=== PATIENT | male | born 1970 | race Caucasian/White ===

== ENCOUNTER 2023-04-15 12:45 | Outpatient (AMB) | payer OTHER, SELFPAY ==
--- OUTSIDE RECORDS SUMMARY | 2023-04-15 12:46 | XMS_ITS | Patient Health Record ---
Author Name Unknown Organization [facility] Address [address] [place] [phone] Care Team Providers Care Staff Respiratory Therapist Name Role Phone No, PCP Primary Care Provider Miriam Smith Unavailable [phone] ALLERGIES Allergen (clinical drug ingredient) Drug/Non Drug Allergy documented on EMR Reaction Allergy Type Onset Date Status carbamazepine TEGretol Unknown Drug Allergy Act denia REASON FOR REFERRAL Reason extract tooth 18 Referral [facility] Referring Provider First Name Miriam Referring Provider Last Name Segun Referring Provider [facility] Referred Provider [facility] Referred Provider [facility] Referral Priority Routine MEDICATIONS Medication SIG (Take, Route, Fr equency, Duration) Notes Start Date End Date Status topiramate Active olanzapine Active metformin Active atorvastatin Active Jardiance Active lisinopril Active amoxicillin 875 mg 1 tab(s) orally ever y 12 hours for 7 days 06/17/2022 Active SOCIAL HISTORY Sex Assigned At : Social History Observation Description Sex Assigned At Unknown VITAL SIGNS Blood pressure diastolic 71 LS 06/17/2022 Blood pressure systolic 116 06/17/2022 Encounters Encounter Location Date Provider Diagnosis [address] [id number] 06/25/2022 [facility] [address] [phone] 06/17/2022 [facility] [address] [place] [phone] 06/12/2022 Miriam DeFlorio PLAN OF TREATMENT No Information Insurance Providers Payer Name Payer Address Payer Phone Subscriber Number Group Number Insured Name Patient Relationship to Insured Coverage Start Date Coverage End Date Health Safety [facility] [address] [place] [address] [id number] Luis Antonio Arita Self - patient is the insured 2 MEDICAL (GENERAL) HISTORY Medical History History ICD Code Diabetes type II Epilepsy / Seizures Hydrocephalus at L ankle surgery (6 pins placed, broken a nkle)
--- NOTE | 2023-04-15 13:59 | AM.OFFWIN_ITS ---
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 Patient is requesting a refill on his diabetic medications. he would like a refill on Lantus and metformin. He is transferring his care from [facility] to this office. His upcoming appt with PCP is scheduled for the end of April. [facility] Social History Patient Tobacco Use Status: Never used Tobacco Physical Exam Vital Signs: Last Vital Signs Temp 97.9 F 04/15/23 14:06 Pulse 85 04/15/23 14:06 BP 112/70 04/15/23 14:06 Pulse Ox 98 04/15/23 14:06 BMI result Body Mass Index 48.8 Const General: cooperative, healthy appearing and comfortable Assessment & Plan Assessment & Plan (1) DM (diabetes mellitus) type II uncontrolled with eye manifestation: Plan Prescriptions written to cover till he sees his PCP. Medications: New insulin glargine (Lantus Solostar U-100 Insulin) 40 units (0.4 mL) subcut QPM 15 mL 0RF metformin 500 mg PO BID 60 tabs 0RF Coding Level of Care Code New Pt Level 3 (46409) Diagnoses DM (diabetes mellitus) type II uncontrolled with eye manifestation
[2023-04-15 14:06] VITALS: BP 112/70; PULSE 85; TEMP 36.6; O2SAT 98; BMI 48.8
== END 2023-04-15 14:35 | disposition home or self-care (01) ==
PROVIDERS: PCP Internal Medicine; Visit Provider Internal Medicine
DX: E11.9 Type 2 diabetes mellitus without complications (principal)
CPT/HCPCS: 99203

== ENCOUNTER 2023-05-05 14:21 | Outpatient (AMB) | payer OTHER, SELFPAY ==
--- NOTE | 2023-05-05 14:31 | MHC.PC.OV ---
Vital Signs 05/05/23 14:32 Height 5 ft 11 in Weight 346 lb BMI 48.3 BP 102/60 Blood Pressure Location Rt brachial Position Sitting Pulse 91 Pulse Source Pulse Oximeter Pulse Oximetry (%) 96 Oxygen Delivery Method Room Air Intake Visit Reasons: Est care DM, Seizures and Sleep Apnea Intake Note: Pt is here to est care Allergies dulaglutide [From Trulicity] Allergy (Intermediate, Verified 05/05/23 14:46) Itching carbamazepine [From Tegretol] Adverse Reaction (Intermediate, Verified 05/05/23 14:46) WBC drops Medication List - Last Reconciled 05/05/23 by NANETTE Vargas atorvastatin 40 mg PO DAILY empagliflozin (Jardiance) 25 mg PO DAILY insulin glargine (Lantus Solostar U-100 Insulin) 47 units subcut QPM lisinopril 2.5 mg PO DAILY metformin 1,000 mg PO BID olanzapine 2.5 mg PO BEDTIME topiramate 100 mg PO BID Tobacco use date assessed: 05/05/23 Dental Screening Dental Screen Date: 05/05/23 Did you have a dental visit in the last 12 months?: Yes Did you have a dental problem in the last 6 months where you did not have access to dental care?: No Was dental information given to patient?: Patient has dentist HPI HPI Comments History of Present Illness Details Patient is a 52-year-old male here to establish care. He has a past medical history significant for seizure disorder, diabetes, hyperlipidemia, hypertension, and obstructive sleep apnea. Will refer patient to Podiatry and Ophthalmology. Will draw a A1c in office today. Will order fasting labs. Patient does not have CPAP machine, will refer to Sleep Medicine. His in office A1c is 12.1, will refer to metabolic clinic. Will order continuing glucose monitor device will refer to metabolic clinic. Will obtain in office EKG. Will also refer to neurology as he has not seen a neurologist in several years. [facility] Medical History Hydrocephalus Hyperlipemia Epilepsy Family History Father Substance use disorder Social History Housing: House Patient Tobacco Use Status: Never used Tobacco e-Cigarette/Vaping Use: Never Used Second Hand Smoke Exposure: No service: No Current occupational status: unemployed Questionnaire PHQ-9 Over the last 2 weeks, how often have you been bothered by any of the following problems? 1. Little interest or pleasure in doing things: not at all 2. Feeling down, depressed, or hopeless: not at all 3. Trouble falling or staying asleep, or sleeping too much: more than half the days 4. Feeling tired or having little energy: more than half the days 5. Poor appetite or overeating: several days 6. Feeling bad about yourself - or that you are a failure or have let yourself or your family down: not at all 7. Trouble concentrating on things, such as reading the newspaper or watching television: not at all 8. Moving or speaking so slowly that other people could have noticed. Or the opposite - being so fidgety or restless that you have been moving around a lot more than usual: not at all 9. Thoughts that you would be better off or of hurting yourself in some way: not at all Total score: 5 Depression Screening Interpretation: Negative Depression Screening Done: Yes 12373 - PHQ-9 Billing: Yes Source: Developed by Drs. Eyad Mireles, Kimberlyn Ko, Ángel Haynes and colleagues, with an educational kelli from [employer]. Thrive Questionnaire Date Thrive assessed: 05/05/23 I am a: Patient What is your living situation today?: I have a steady place to live Within the past 12 months, did the food you bought not last and you didn't have the money to get more?: Never true Within the past 12 months, did you worry whether your food would run out before you got money to buy more?: Never true Do you have trouble paying for medicines?: No Do you have trouble getting transportation to medical appointments?: No Do you have trouble paying your heating and electricity bill?: No Do you have trouble taking care of your child, family member or friend?: No Do you have trouble with day-to-day activities such as bathing, preparing meals, shopping, managing finances, etc.?: No Are you currently unemployed and looking for a job?: Yes Are you interested in more education?: No THRIVE Score: 0 AUDIT C Alcohol Use Questionnaire (AUDIT-C) 1. How often do you have a drink containing alcohol?: Never Total Score: 0 ANGELICA-7 AMB Questionnaire ANGELICA-7 Date ANGELICA - 7 assessed: 05/05/23 Feeling nervous, anxious, or on edge: 0 = Not at all Not being able to stop or control worryin = Not at all Worrying too much about different things: 0 = Not at all Trouble relaxin = Not at all Being so restless that it is hard to sit still: 0 = Not at all Becoming easily annoyed or irritable: 0 = Not at all Feeling afraid as if something awful might happen: 0 = Not at all Total ANGELICA-7 score (0-4 normal; 5-9 mild; 10-14 moderate; 15-21 severe): 0 Source: Developed by Drs. Eyad Mireles, Kimberlyn Ko, Ángel Haynes and colleagues, with an educational kelli from [employer]. ANGELICA-7 Assessment Billing ANGELICA-7 Assessment Tool: ANGELICA-7 Assessment 72000 Review of Systems Const Details: Constitutional : No Weight loss, No Fever, No Chills, No Fatigue, No Malaise Eyes: No Eye Pain, No Swelling, No Redness, Denies vision change. Cardiovascular : No Chest Pain, No SOB, No Dyspnea on Exertion, No Orthopnea, No Edema, No Palpitations Respiratory : No Cough, No Sputum, No Wheezing Neuro : No Weakness, No Numbness, No Dizziness, No Headache Psych : No Anxiety/Panic, No Depression Endocrine : Admits some Polyuria, Admits some Polydipsia All other systems reviewed and are negative Physical exam (Primary Care) Vital Signs: Last Vital Signs Pulse 91 05/05/23 14:32 BP 102/60 05/05/23 14:32 Pulse Ox 96 05/05/23 14:32 Oxygen Delivery Method Room Air 05/05/23 14:32 BMI result Body Mass Index 48.3 Tobacco/Smoking Status: Tobacco use Status Tobacco use date assessed 05/05/23 05/05/23 14:37 Patient Tobacco Use Status Never used Tobacco 05/05/23 14:35 e-Cigarette/Vaping Use Never Used 05/05/23 14:43 PHQ-9: PHQ-9 Score PHQ-9: Total score 7 05/05/23 15:11 Depression Screening Interpretation: Negative Thrive Assessment: Date of Thrive Assessment Date Thrive assessed 05/05/23 05/05/23 14:52 Const Other: Appearance: Alert.? Oriented X3.? No acute distress.? Head: Normocephalic, atraumatic Eyes: Pupils equal, round and reactive to light.? CVS: Normal heart rate and rhythm.? Pulses normal.? Respiratory: No respiratory distress.? Breath sounds normal.? Neuro: Oriented X 3.? No motor deficit.? No sensory deficit. CN 2-12 intact Results AMB Hemoglobin A1c AMB Hemoglobin A1c 12.1 % Last Edit by Lakeisha Taylor CMA on 05/05/23 15:22 Assessment and Plan Assessment & Plan (1) Diabetes mellitus type 2 with complications: Comment: Patient's A1c was 12.1. Will draw fasting labs. Will order continuous glucose monitoring. Will refer patient to be nurse navigator for Education on diabetic meals and how to use continuous glucose meter. Will refer patient to metabolic clinic. Will refer patient to Podiatry, will refer to Ophthalmology. Patient has been educated on appropriate diet. Been educated to limit sugary drinks. Code(s): E11.8 - Type 2 diabetes mellitus with unspecified complications (2) Sleep apnea: Comment: Patient has obstructive sleep apnea, does not have CPAP machine. Will refer to Sleep Medicine. Code(s): G47.30 - Sleep apnea, unspecified Qualifiers: Sleep apnea type: unspecified type Qualified Code(s): G47.30 - Sleep apnea, unspecified (3) Left bundle branch block: Comment: Patient had EKG in office a demonstrated left bundle branch block. Patient also has untreated SEBASTIÁN. Will order echocardiogram in give referral to Cardiology. Code(s): I44.7 - Left bundle-branch block, unspecified Plan Patient to follow-up in 1 month. Orders: Orders Comprehensive Met. Panel Today E11.9 - Type 2 diabetes mellitus without complications Complete Blood Count Auto Diff Today Z13.0 - Encounter for screening for diseases of the blood and blood-forming organs and certain disorders involving the immune mechanism PSA,Total (Free>4and<10) Today Z12.5 - Encounter for screening for malignant neoplasm of prostate Vitamin B12 Today Z13.21 - Encounter for screening for nutritional disorder UA CC w/rflx Micro + Cult Today Z13.89 - Encounter for screening for other disorder AMB EKG-In Office Today E11.8 - Type 2 diabetes mellitus with unspecified complications, G47.30 - Sleep apnea, unspecified CA echo transthoracic complete Today E11.8 - Type 2 diabetes mellitus with unspecified complications, G47.30 - Sleep apnea, unspecified, I44.7 - Left bundle-branch block, unspecified Lipid Panel Today E11.9 - Type 2 diabetes mellitus without complications Vitamin D 25-OH (D2 and D3) Today Z13.21 - Encounter for screening for nutritional disorder Vitamin B6 Today Z13.21 - Encounter for screening for nutritional disorder TSH reflex Free T4 Today Z13.29 - Encounter for screening for other suspected endocrine disorder Microalbumin, Random (w Creat) Today E11.9 - Type 2 diabetes mellitus without complications AMB Hemoglobin A1c Today E11.8 - Type 2 diabetes mellitus with unspecified complications Referrals Podiatry Referral E11.9 - Type 2 diabetes mellitus without complications Ophthalmology Referral E11.9 - Type 2 diabetes mellitus without complications Metabolic Clinic Referral E11.8 - Type 2 diabetes mellitus with unspecified complications Sleep Medicine Referral G47.30 - Sleep apnea, unspecified Cardiology Referral E11.8 - Type 2 diabetes mellitus with unspecified complications, G47.30 - Sleep apnea, unspecified, I44.7 - Left bundle-branch block, unspecified Nurse Navigator Referral E11.8 - Type 2 diabetes mellitus with unspecified complications Medications: New flash glucose sensor (FreeStyle Rukhsana 2 Sensor kit) As directed 1 ea 1RF E11.8 - Type 2 diabetes mellitus with unspecified complications metformin 1,000 mg PO BID 90 tabs 0RF FreeStyle Rukhsana 2 [place] (flash glucose scanning reader) As directed 1 ea 0RF NS E11.8 - Type 2 diabetes mellitus with unspecified complications Changed From insulin glargine (Lantus Solostar U-100 Insulin) 40 units (0.4 mL) subcut QPM 15 mL 0RF To insulin glargine (Lantus Solostar U-100 Insulin) 47 units subcut QPM Coding Level of Care Code New Pt Level 3 (82277) Diagnoses Diabetes mellitus type 2 with complications E11.8 Sleep apnea, unspecified type G47.30 Sleep apnea type: unspecified type Left bundle branch block I44.7 Additional Codes ANGELICA-7 Assessment Billing - ANGELICA-7 Assessment Tool: ANGELICA-7 Assessment 29544 ([id number]) Time Spent (min) 35
[2023-05-05 14:32] VITALS: BP 102/60; PULSE 91; O2SAT 96; BMI 48.3
== END 2023-05-05 16:00 | disposition home or self-care (01) ==
PROVIDERS: PCP Internal Medicine; Visit Provider Nurse Practitioner Primary Care
DX: E11.8 Type 2 diabetes mellitus with unspecified complications (principal); G47.30 Sleep apnea, unspecified; I44.7 Left bundle-branch block, unspecified
CPT/HCPCS: 83036; 93000; 99214

== ENCOUNTER → 2023-06-12 14:52 | Outpatient (REF) | payer OTHER, SELFPAY ==
--- NOTE | 2023-06-12 14:58 | CA_ITS ---
Transthoracic Echocardiogram Patient (Last, First, Middle): Luis Antonio Holcomb, Gender: Male Date of : 1970 Age: 53 Procedure Date: 06/12/2023 Procedure Type: Transthoracic Echocardiogram Location: OP Height: 180.34 cm Weight: 156.95 kg BSA: 2.66 m2 Heart Rate: bpm BP: 130 / 76 mmHg Can Dryer: TO Referring MD: Rodrigo FITZPATRICK Float Phlebotomist: Jakob Brito MD Symptoms: G47.30 - Sleep apnea, unspecified Study Quality: Technically Difficult, contrast ECG Rhythm: Sinus Conclusions: - 1. Normal LV ejection fraction of 60 65% 2. Mildly dilated right ventricle with normal contractile function and mildly dilated aortic root 3. Normal cardiac valvular Doppler 4. Normal RV systolic pressure 5. No pericardial effusion Findings Procedure Information Contrast agent, definity, is being given per protocol without apparent complications. Left Ventricle Normal left ventricular size, thickness, and systolic function. The visually estimated ejection fraction is between 60-65%. Spectral Doppler is indicative of a normal filling pattern. Right Ventricle Mildly increased right ventricular cavity size. There is normal right ventricular systolic function. Atria Both atria are normal in size. There is no evidence of interatrial shunt. Aortic Valve The aortic valve structure and function is likely normal. There is no aortic valve stenosis. There is no aortic valve regurgitation. Mitral Valve Likely normal mitral valve structure and function. There is trace mitral valve regurgitation. There is no mitral valve stenosis. Pulmonic Valve The pulmonic valve was not well visualized. Tricuspid Valve Likely normal tricuspid valve structure and function. There is trace tricuspid valve regurgitation. The right ventricular systolic pressure is normal. The right ventricular systolic pressure is 28 mmHg. Normal right atrial pressure. There is no evidence of pulmonary hypertension. Great Vessels The pulmonary artery was not well visualized. There is mild dilatation of the sinuses of Valsalva. Venous The inferior vena cava is normal in size and collapses greater than 50% with inspiration. Pericardium/Pleural There is no evidence of pericardial effusion. Prior Study Comparison No prior study available for comparison. Measurements 2D Linear Measurements IVSd: 1.18 0.6-0.9/0.6-1.0 cm LVIDd: 5.03 3.9-5.3/4.2-5.9 cm LVIDd Index: 1.89 2.4-3.2/2.2-3.1 cm/m2 LVIDs: 3.35 2.0-3.6 cm LVPWd: 1.08 0.7-1.1 cm LA Diam: 3.30 2.7-3.8/3.0-4.0 cm LAIDs Index: 1.24 1.5-2.3 cm/m2 LV Mass: 270.56 67-162/88-224 g LV Mass Index: 101.72 43-95/49-115 g/m2 LVOT Diam: 2.40 3.0+(-)1.3 cm 2D Systolic Function EF 4C: 62.60 >55% EF 2C: 62.20 >55% EF BiP: 62.20 >55% Mitral Valve MV Pk E: 0.50 MV PK A: 0.44 MV Decel Time: 139.00 E/A: 1.10 E'Lateral: 7.83 E'Medial: 8.59 E/E' Med: 5.80 E/E' Lat: 6.40 PHT: 41.00 MVA PHT: 5.37 Decel [place]: 3.62 Aortic Valve AoV Pk Jim: 1.23 AoV Mn Jim: 0.84 AoV VTI: 0.21 AoV Pk Grad: 6.00 Aov Mn Grad: 3.00 MOHSEN Cont.VTI: 4.01 LVOT LVOT Pk Jim: 0.99 LVOT Mn Jim: 0.65 LVOT VTI: 0.18 LVOT Pk Grad: 4.00 LVOT Mn Grad: 2.00 LVOT Diam: 2.40 LVOT Area: 4.52 Diastolic Function MV Pk E: 0.50 MV Pk A: 0.44 E/A: 1.10 E'Medial: 8.59 E/E' Med: 5.80 E' Laterial: 7.83 E/E' Lat: 6.40 Right Ventricle TAPSE (mm): 25.90 TVS' Jim: 13.50 Tricuspid Valve TR Pk Jim: 2.25 TR Pk Grad: 20.00 RA Press: 8.00 RVSP: 28.00 Great Vessels Aorta Sinus of Valsalva: 3.92 2.0-3.5 cm Ao Asc: 3.40 2.1-3.4 cm Updated in Other Vendor System with Status of Final Jakob Brito MD electronically signed on 06/13/2023 1:35:56 PM with status of Final
== END ==
LOC: HO.CARD 14:52
PROVIDERS: PCP Nurse Practitioner Primary Care; Visit Provider Nurse Practitioner Primary Care
DX: I44.7 Left bundle-branch block, unspecified (principal); G47.30 Sleep apnea, unspecified; E11.8 Type 2 diabetes mellitus with unspecified complications
CPT/HCPCS: 93306; Q9957

== ENCOUNTER → 2023-06-12 14:58 | Outpatient (BNV) | payer OTHER, SELFPAY | PROVIDERS: PCP Nurse Practitioner Primary Care; Visit Provider Internal Medicine Cardiovascular Disease | DX: I51.7 Cardiomegaly (principal) | CPT/HCPCS: 93306 ==

== ENCOUNTER 2023-06-17 08:18 | Outpatient (REF) | payer OTHER, SELFPAY ==
[2023-06-17 10:20] LABS: MANUAL DIFF FLAG NO
[2023-06-17 10:29] LABS: Appearance Urine Clear; Color Urine Yellow; Glucose Urine UA >=1000 mg/dL (Negative); Leukocyte Esterase Urine Small (1+) (Negative); Nitrite Urine Negative (Negative); Specific Gravity - Urine >= 1.030 (1.005-1.025); UMIC TRIGGER UACC YES; Urine Blood Negative (Negative); Urine Ketones Negative (Negative); Urine Protein Negative (Neg-Trace)
[2023-06-17 10:36] LABS: Bacteria Urine 1+ (None Seen); Basophils Percent Auto 0.4 % (0-2); Eosinophils Absolute Auto 0.3 X10*3/uL (0.0-0.4); Hematocrit 41.8 % (42.0-52.0); Hemoglobin 13.3 g/dl (14.0-18.0); Hyaline Casts Urine 0-2 /LPF (0-2); Imm Gran Abs Auto 0.07 X10*3/uL (0.00-0.03); Imm Gran Pct Auto 0.7 % (0.0-0.4); Lymphocytes Absolute Auto 1.5 X10*3/uL (1.2-4.9); Lymphocytes Percent Auto 15.2 % (20-40); Mean Corpuscular HGB Conc 31.8 g/dl (31.0-36.0); Mean Corpuscular Hemoglobin 29.3 pg (27.0-33.0); Mean Corpuscular Volume 92.1 fL (80.0-98.0); Mean Platelet Volume 9.4 fL (9.4-12.4); Monocytes Absolute Auto 0.6 X10*3/uL (0.1-1.2); Monocytes Percent Auto 5.6 % (2-11); Neutrophils Absolute Auto 7.4 x10*3/uL (2.0-8.3); Neutrophils Percent Auto 75.1 % (45-73); Platelet Count 258 X10*3/uL (160-400); RBC Urine 0-2 /HPF (0-2); Red Blood Count 4.54 X10*6/uL (4.60-5.80); Red Cell Distribution Width 14.6 % (11.0-16.0); UACC Culture Trigger YES; WBC Urine 21-50 /HPF (0-5); White Blood Count 9.8 X10*3/uL (4.8-10.8)
[2023-06-17 11:28] LABS: Alanine Aminotransferase 40 U/L (0-40); Alkaline Phosphatase 119 U/L (39-117); Anion Gap 12 (12-20); Aspartate Amino Transferase 37 U/L (5-37); Bilirubin Total 0.4 mg/dL (0.0-1.0); Blood Urea Nitrogen 22 mg/dL (9-16); Calcium 9.1 mg/dL (8.4-10.2); Carbon Dioxide 27 mmol/L (22-29); Chloride 102 mmol/L (96-108); Cholesterol 142 mg/dL (<200); Estimated Glomerular Filt Rate > 60; Glucose Random 233 mg/dL (60-115); HDL Cholesterol 27 mg/dL (>40); LDL Cholesterol Calculated 75 mg/dL (<100); PSA,Total (Free>4and<10) 0.13 ng/mL (0.00-4.00); Potassium 4.2 mmol/L (3.3-5.1); Sodium 137 mmol/L (135-145); TSH reflex Free T4 3.86 uIU/mL (0.32-4.0); Total Protein 7.7 g/dL (6.5-8.0); Triglycerides 201 mg/dL (<150)
[2023-06-17 11:45] LABS: Creatinine Urine 53.64 mg/dL; Microalbum/Creatinine Ratio Ur 20.5 ug/mg cr (<30)
[2023-06-17 11:59] LABS: Vitamin B12 595 pg/mL (200-900)
[2023-06-17 12:15] LABS: Estimated Average Glucose 289 mg/dL; Hemoglobin A1c % 11.7 % (<6.0)
[2023-06-20 17:08] LABS: Vitamin D 25-OH, D2 <4 ng/mL; Vitamin D 25-OH, D3 30 ng/mL; Vitamin D 25-OH, Total 30 ng/mL (30-100)
[2023-06-21 17:08] LABS: Vitamin B6 3.2 ng/mL (2.1-21.7)
== END 2023-06-17 08:19 | disposition home or self-care (01) ==
LOC: HO.HMGCLDS 08:18
PROVIDERS: Physician Assistant Surgical; PCP Nurse Practitioner Primary Care; Visit Provider Nurse Practitioner Primary Care
DX: E11.8 Type 2 diabetes mellitus with unspecified complications (principal); Z13.21 Encounter for screening for nutritional disorder; Z13.29 Encounter for screening for other suspected endocrine disorder; Z13.0 Encounter for screening for diseases of the blood and blood-forming organs and certain disorders involving the immune mechanism; Z12.5 Encounter for screening for malignant neoplasm of prostate
CPT/HCPCS: 36415; 80053; 80061; 81001; 82043; 82306; 82570; 82607; 83036; 84153; 84207; 84443; 85025; 87086; 87147

== ENCOUNTER 2023-06-17 11:05 | Outpatient (REF) | payer OTHER, SELFPAY | END 2023-06-17 11:06 | disposition home or self-care (01) | LOC: HO.LAB 11:05 | PROVIDERS: Visit Provider Physician Assistant Surgical | DX: Z13.89 Encounter for screening for other disorder (principal) ==

== ENCOUNTER 2023-06-20 11:37 | Outpatient (AMB) | payer OTHER, SELFPAY ==
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
[2023-06-20 13:27] VITALS: BP 136/65; PULSE 83; TEMP 36.4; O2SAT 97; BMI 48.7
== END 2023-06-20 15:11 | disposition home or self-care (01) ==
LOC: HO.META 11:37
PROVIDERS: PCP Nurse Practitioner Primary Care; Visit Provider Physician Assistant Surgical
DX: E66.01 Morbid (severe) obesity due to excess calories (principal)

== ENCOUNTER → 2023-06-20 11:37 | Outpatient (BNVA) | payer OTHER, SELFPAY | PROVIDERS: PCP Nurse Practitioner Primary Care; Visit Provider Physician Assistant Surgical | DX: E66.01 Morbid (severe) obesity due to excess calories (principal); Z68.42 Body mass index [BMI] 45.0-49.9, adult | CPT/HCPCS: 99453 ==

== ENCOUNTER 2023-06-27 16:04 | Outpatient (AMB) | payer OTHER, SELFPAY ==
[2023-06-27 12:32] VITALS: BMI 48.4
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
== END 2023-06-27 16:18 | disposition home or self-care (01) ==
LOC: HO.META 16:04
PROVIDERS: PCP Nurse Practitioner Primary Care; Visit Provider Physician Assistant Surgical
DX: E66.01 Morbid (severe) obesity due to excess calories (principal)
CPT/HCPCS: 99213

== ENCOUNTER → 2023-06-27 16:04 | Outpatient (BNVA) | payer OTHER, SELFPAY | PROVIDERS: PCP Nurse Practitioner Primary Care; Visit Provider Physician Assistant Surgical ==

== ENCOUNTER → 2023-07-24 11:21 | Outpatient (BNVA) | payer OTHER, SELFPAY | PROVIDERS: PCP Nurse Practitioner Primary Care; Visit Provider Internal Medicine ==

== ENCOUNTER 2023-07-25 15:25 | Outpatient (AMB) | payer OTHER, SELFPAY ==
[2023-07-25 13:01] VITALS: BMI 48.7
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
--- OUTSIDE RECORDS SUMMARY | 2023-07-25 15:37 | XMS_ITS | Patient Health Record ---
Author Organization [facility] Address [address] [place] [id number] Care Team Providers Care Spa Manager/Esthetician Name Role Phone No, PCP Primary Care Provider Miriam Smith Unavailable [phone] ALLERGIES Allergen (clinical drug ingredient) Drug/Non Drug Allergy documented on EMR Reaction Allergy Type Onset Date Status carbamazepine TEGretol Unknown Drug Allergy Act denia REASON FOR REFERRAL No Information MEDICATIONS Medication SIG (Take, Route, Fr equency, Duration) Notes Start Date End Date Status topiramate Active olanzapine Active metformin Active atorvastatin Active Jardiance Active lisinopril Active amoxicillin 875 mg 1 tab(s) orally ever y 12 hours for 7 days 06/17/2022 Active SOCIAL HISTORY Sex Assigned At : Social History Observation Description Sex Assigned At Unknown PLAN OF TREATMENT No Information Insurance Providers Payer Name Payer Address Payer Phone Subscriber Number Group Number Insured Name Patient Relationship to Insured Coverage Start Date Coverage End Date Health Safety [facility] [address] [place] [phone] [id number] Luis Antonio Arita Self - patient is the insured 2 MEDICAL (GENERAL) HISTORY Medical History History ICD Code Diabetes type II Epilepsy / Seizures Hydrocephalus at L ankle surgery (6 pins placed, broken a nkle)
== END 2023-07-25 15:31 | disposition home or self-care (01) ==
LOC: HO.META 15:26
PROVIDERS: PCP Nurse Practitioner Primary Care; Visit Provider Physician Assistant Surgical
DX: E66.01 Morbid (severe) obesity due to excess calories (principal)

== ENCOUNTER → 2023-07-25 15:25 | Outpatient (BNVA) | payer OTHER, SELFPAY | PROVIDERS: PCP Nurse Practitioner Primary Care; Visit Provider Physician Assistant Surgical | DX: E66.01 Morbid (severe) obesity due to excess calories (principal); Z68.42 Body mass index [BMI] 45.0-49.9, adult | CPT/HCPCS: 99454 ==

== ENCOUNTER 2023-08-07 07:52 | Outpatient (AMB) | payer OTHER, SELFPAY ==
[2023-08-07 08:10] VITALS: BP 122/70; PULSE 74; O2SAT 97; BMI 49.3
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
== END 2023-08-07 09:01 | disposition home or self-care (01) ==
PROVIDERS: PCP Internal Medicine; Visit Provider Nurse Practitioner Primary Care
DX: E11.8 Type 2 diabetes mellitus with unspecified complications (principal)
CPT/HCPCS: 99213

== ENCOUNTER 2023-08-14 13:53 | Outpatient (AMB) | payer OTHER, SELFPAY ==
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
[2023-08-14 14:09] VITALS: PULSE 84; O2SAT 95; BMI 49.2
== END 2023-08-14 14:58 | disposition home or self-care (01) ==
PROVIDERS: PCP Internal Medicine; Visit Provider Nurse Practitioner Family
DX: G47.30 Sleep apnea, unspecified (principal); G47.19 Other hypersomnia; R06.83 Snoring; E66.01 Morbid (severe) obesity due to excess calories; G40.909 Epilepsy, unspecified, not intractable, without status epilepticus
CPT/HCPCS: 99204

== ENCOUNTER → 2023-08-14 13:53 | Outpatient (BNVA) | payer OTHER, SELFPAY | PROVIDERS: PCP Internal Medicine; Visit Provider Nurse Practitioner Family | DX: G47.30 Sleep apnea, unspecified (principal); G47.19 Other hypersomnia; R06.83 Snoring; E66.01 Morbid (severe) obesity due to excess calories; Z68.42 Body mass index [BMI] 45.0-49.9, adult; G40.909 Epilepsy, unspecified, not intractable, without status epilepticus | CPT/HCPCS: 99202 ==

== ENCOUNTER → 2023-08-24 19:30 | Outpatient (REF) | payer OTHER, SELFPAY | LOC: HO.SL 19:30 | PROVIDERS: PCP Nurse Practitioner Primary Care; Visit Provider Nurse Practitioner Family | DX: G47.33 Obstructive sleep apnea (adult) (pediatric) (principal); R06.83 Snoring; G47.19 Other hypersomnia; E66.01 Morbid (severe) obesity due to excess calories | CPT/HCPCS: 95810 ==

== ENCOUNTER → 2023-08-24 19:30 | Outpatient (BNV) | payer OTHER, SELFPAY | PROVIDERS: PCP Nurse Practitioner Primary Care; Visit Provider Psychiatry & Neurology Neurology | DX: G47.33 Obstructive sleep apnea (adult) (pediatric) (principal) | CPT/HCPCS: 95810 ==

== ENCOUNTER 2023-09-19 13:08 | Outpatient (AMB) | payer OTHER, SELFPAY ==
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
[2023-09-19 13:12] VITALS: BP 108/70; PULSE 81; O2SAT 96; BMI 48.8
== END 2023-09-19 13:31 | disposition home or self-care (01) ==
PROVIDERS: PCP Nurse Practitioner Primary Care; Visit Provider Nurse Practitioner Primary Care
DX: Z00.00 Encounter for general adult medical examination without abnormal findings (principal)
CPT/HCPCS: 99396

== ENCOUNTER 2023-09-25 13:09 | Outpatient (AMB) | payer OTHER, SELFPAY ==
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
[2023-09-25 13:16] VITALS: BP 120/68; PULSE 88; BMI 49.0
== END 2023-09-25 13:53 | disposition home or self-care (01) ==
PROVIDERS: PCP Nurse Practitioner Primary Care; Visit Provider Internal Medicine
DX: R94.31 Abnormal electrocardiogram [ECG] [EKG] (principal); E66.01 Morbid (severe) obesity due to excess calories; E11.8 Type 2 diabetes mellitus with unspecified complications; G47.30 Sleep apnea, unspecified
CPT/HCPCS: 93010; 99204

== ENCOUNTER → 2023-09-25 13:09 | Outpatient (BNVA) | payer OTHER, SELFPAY | PROVIDERS: PCP Nurse Practitioner Primary Care; Visit Provider Internal Medicine | DX: R94.31 Abnormal electrocardiogram [ECG] [EKG] (principal); E66.01 Morbid (severe) obesity due to excess calories; E11.8 Type 2 diabetes mellitus with unspecified complications; G47.30 Sleep apnea, unspecified; Z68.42 Body mass index [BMI] 45.0-49.9, adult | CPT/HCPCS: 93005; 99202 ==

== ENCOUNTER 2023-10-06 10:47 | Outpatient (AMB) | payer OTHER, SELFPAY ==
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
[2023-10-06 10:39] VITALS: BMI 48.6
--- OUTSIDE RECORDS SUMMARY | 2023-10-06 10:48 | XMS_ITS ---
Author Organization [facility] Address [address] [place] [phone] Care Team Providers Care Monitor Tech Name Role Phone No, PCP Primary Care Provider Miriam Smith Unavailable [phone] REASON FOR VISIT in pain Encounters Encounter Location Date Provider Diagnosis [facility] [address] [place] [id number] 06/25/2022 Miriam Cast PLAN OF TREATMENT No Information
--- OUTSIDE RECORDS SUMMARY | 2023-10-06 10:48 | XMS_ITS ---
Author Organization [facility] Address [address] [facility] [place] [id number] Care Team Providers Care Compliance Director Name Role Phone No, PCP Primary Care Provider Miriam Smith Unavailable [phone] REASON FOR VISIT Returning Luis Antonio's call Encounters Encounter Location Date Provider Diagnosis [facility] [address] [place] [address] [address] [place] [phone] 06/12/2022 Miriam Cast PLAN OF TREATMENT No Information
--- OUTSIDE RECORDS SUMMARY | 2023-10-06 10:48 | XMS_ITS ---
Author Organization [facility] Address [address] [facility] [place] [id number] Care Team Providers Care Gas Meter Mechanic Name Role Phone No, PCP Primary Care Provider Miriam Smith Unavailable [phone] ALLERGIES Allergen (clinical drug ingredient) Drug/Non Drug Allergy documented on EMR Reaction Allergy Type Onset Date Status carbamazepine TEGretol Unknown Drug Allergy Act denia REASON FOR VISIT in pain / LL side MEDICATIONS Medication SIG (Take, Route, Fr equency, Duration) Notes Start Date End Date Status topiramate Active olanzapine Active metformin Active atorvastatin Active amoxicillin 875 mg 1 tab(s) orally ever y 12 hours for 7 days 06/17/2022 Active Jardiance Active lisinopril Active VITAL SIGNS Blood pressure systolic 116 06/18/19 23 Blood pressure diastolic 71 LS 023 Encounters Encounter Location Date Provider Diagnosis [facility] [address] [place] [address] 2nd Floor [place], [place] [id number] 06/17/2022 Miriam Cast PLAN OF TREATMENT Medication Medication Name Sig Start Date Stop Date Notes amoxicillin 875 mg 1 tab(s) orally ever y 12 hours for 7 days 06/17/2022
--- OUTSIDE RECORDS SUMMARY | 2023-10-06 10:49 | XMS_ITS | Patient Health Record ---
Author Organization [facility] Address [address] [facility] [place] [id number] Care Team Providers Care Associate School Psychologist Name Role Phone No, PCP Primary Care Provider Miriam Smith Unavailable [phone] ALLERGIES Allergen (clinical drug ingredient) Drug/Non Drug [...] Start Date Coverage End Date Health Safety [facility] [address] [place] [phone] [id number] Luis Antonio Arita Self - patient is the insured 2 MEDICAL (GENERAL) HISTORY Medical History History ICD Code Diabetes type II Epilepsy / Seizures Hydrocephalus at L ankle surgery (6 pins placed, broken a nkle)
== END 2023-10-06 10:54 | disposition home or self-care (01) ==
LOC: HO.HBS 10:47
PROVIDERS: PCP Nurse Practitioner Primary Care; Visit Provider Physician Assistant Surgical
DX: E66.01 Morbid (severe) obesity due to excess calories (principal); Z68.42 Body mass index [BMI] 45.0-49.9, adult
CPT/HCPCS: 99457

== ENCOUNTER → 2023-10-06 10:47 | Outpatient (BNVA) | payer OTHER, SELFPAY | PROVIDERS: PCP Nurse Practitioner Primary Care; Visit Provider Physician Assistant Surgical ==

== ENCOUNTER → 2023-11-26 07:08 | Outpatient (BNVA) | payer OTHER, SELFPAY | PROVIDERS: PCP Nurse Practitioner Primary Care; Visit Provider Dietitian, Registered ==

== ENCOUNTER 2023-12-17 11:50 | Outpatient (AMB) | payer OTHER, SELFPAY ==
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
[2023-12-17 11:55] VITALS: BP 116/69; PULSE 101; BMI 48.3
== END 2023-12-17 12:47 | disposition home or self-care (01) ==
PROVIDERS: PCP Nurse Practitioner Primary Care; Visit Provider Nurse Practitioner
DX: Z01.818 Encounter for other preprocedural examination (principal); G40.909 Epilepsy, unspecified, not intractable, without status epilepticus; G47.30 Sleep apnea, unspecified; E66.01 Morbid (severe) obesity due to excess calories; R94.31 Abnormal electrocardiogram [ECG] [EKG]
CPT/HCPCS: 99203

== ENCOUNTER → 2023-12-17 11:50 | Outpatient (BNVA) | payer OTHER, SELFPAY | PROVIDERS: PCP Nurse Practitioner Primary Care; Visit Provider Nurse Practitioner | DX: Z01.818 Encounter for other preprocedural examination (principal); E66.01 Morbid (severe) obesity due to excess calories; R94.31 Abnormal electrocardiogram [ECG] [EKG]; G47.30 Sleep apnea, unspecified; G40.909 Epilepsy, unspecified, not intractable, without status epilepticus; Z68.42 Body mass index [BMI] 45.0-49.9, adult | CPT/HCPCS: 99202 ==

== ENCOUNTER 2023-12-24 12:53 | Outpatient (AMB) | payer OTHER, SELFPAY ==
[2023-12-24 13:00] VITALS: BP 118/62; PULSE 87; O2SAT 95; BMI 49.0
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
== END 2023-12-24 13:27 | disposition home or self-care (01) ==
PROVIDERS: PCP Nurse Practitioner Primary Care; Visit Provider Internal Medicine
DX: E11.9 Type 2 diabetes mellitus without complications (principal); Z79.4 Long term (current) use of insulin; E66.813 Obesity, class 3; Z68.42 Body mass index [BMI] 45.0-49.9, adult; Z76.89 Persons encountering health services in other specified circumstances; E78.9 Disorder of lipoprotein metabolism, unspecified; F99 Mental disorder, not otherwise specified

== ENCOUNTER → 2023-12-24 12:53 | Outpatient (BNVA) | payer OTHER, SELFPAY | PROVIDERS: PCP Nurse Practitioner Primary Care; Visit Provider Internal Medicine | DX: E11.9 Type 2 diabetes mellitus without complications (principal); E66.01 Morbid (severe) obesity due to excess calories; E78.9 Disorder of lipoprotein metabolism, unspecified; F99 Mental disorder, not otherwise specified; Z76.89 Persons encountering health services in other specified circumstances; Z79.4 Long term (current) use of insulin | CPT/HCPCS: 96127; 99202 ==

== ENCOUNTER 2023-12-31 10:00 | Outpatient (REF) | payer OTHER, SELFPAY ==
[2023-12-31 13:23] LABS: MANUAL DIFF FLAG NO
[2023-12-31 13:33] LABS: Basophils Absolute Auto 0.1 X10*3/uL (0.0-0.2); Basophils Percent Auto 0.7 % (0-2); Eosinophils Absolute Auto 0.3 X10*3/uL (0.0-0.4); Eosinophils Percent Auto 3.6 % (0-4); Hematocrit 38.9 % (42.0-52.0); Hemoglobin 12.4 g/dl (14.0-18.0); Imm Gran Abs Auto 0.07 X10*3/uL (0.00-0.03); Imm Gran Pct Auto 0.8 % (0.0-0.4); Lymphocytes Absolute Auto 1.5 X10*3/uL (1.2-4.9); Lymphocytes Percent Auto 17.5 % (20-40); Mean Corpuscular HGB Conc 31.9 g/dl (31.0-36.0); Mean Corpuscular Hemoglobin 28.8 pg (27.0-33.0); Mean Corpuscular Volume 90.5 fL (80.0-98.0); Mean Platelet Volume 9.5 fL (9.4-12.4); Monocytes Absolute Auto 0.5 X10*3/uL (0.1-1.2); Monocytes Percent Auto 5.7 % (2-11); Neutrophils Absolute Auto 6.3 x10*3/uL (2.0-8.3); Neutrophils Percent Auto 71.7 % (45-73); Platelet Count 247 X10*3/uL (160-400); Red Cell Distribution Width 15.2 % (11.0-16.0); White Blood Count 8.7 X10*3/uL (4.8-10.8)
[2023-12-31 13:46] LABS: Estimated Average Glucose 209 mg/dL; Hemoglobin A1C 231.0365 umol/L; Hemoglobin A1c % 8.9 % (<6.0); Total Hemoglobin (HGBA1C) 3134.0024 umol/L
[2023-12-31 14:08] LABS: Alanine Aminotransferase 47 U/L (0-40); Albumin Level 3.8 g/dL (3.5-5.0); Alkaline Phosphatase 116 U/L (39-117); Anion Gap 12 (12-20); Aspartate Amino Transferase 51 U/L (5-37); Bilirubin Total 0.5 mg/dL (0.0-1.0); Blood Urea Nitrogen 14 mg/dL (9-16); Carbon Dioxide 24 mmol/L (22-29); Chloride 107 mmol/L (96-108); Cholesterol 115 mg/dL (<200); Estimated Glomerular Filt Rate > 60; Glucose Fasting 120 mg/dL (60-99); HDL Cholesterol 25 mg/dL (>40); LDL Cholesterol Calculated 57 mg/dL (<100); Potassium 3.7 mmol/L (3.3-5.1); Sodium 139 mmol/L (135-145); Total Protein 7.3 g/dL (6.5-8.0); Triglycerides 165 mg/dL (<150)
[2023-12-31 14:11] LABS: TSH reflex Free T4 6.57 uIU/mL (0.32-4.0)
[2023-12-31 14:16] LABS: Microalbum/Creatinine Ratio Ur 8.4 ug/mg cr (<30)
[2023-12-31 14:52] LABS: Free T4 (Free Thyroxine) 1.04 ng/dL (0.71-1.85)
== END 2023-12-31 10:01 | disposition home or self-care (01) ==
LOC: HO.HMGCLDS 10:00
PROVIDERS: PCP Internal Medicine; Visit Provider Internal Medicine
DX: E11.9 Type 2 diabetes mellitus without complications (principal); Z79.4 Long term (current) use of insulin; E66.01 Morbid (severe) obesity due to excess calories; Z76.89 Persons encountering health services in other specified circumstances; E78.9 Disorder of lipoprotein metabolism, unspecified
CPT/HCPCS: 36415; 80053; 80061; 82043; 82570; 83036; 84439; 84443; 85025

== ENCOUNTER 2024-01-01 12:35 | Outpatient (AMB) | payer OTHER, SELFPAY ==
[2024-01-01 12:39] VITALS: BP 122/68; PULSE 80; BMI 48.6
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
== END 2024-01-01 12:59 | disposition home or self-care (01) ==
PROVIDERS: PCP Nurse Practitioner Primary Care; Visit Provider Internal Medicine
DX: R94.31 Abnormal electrocardiogram [ECG] [EKG] (principal); E66.01 Morbid (severe) obesity due to excess calories; E11.8 Type 2 diabetes mellitus with unspecified complications; G47.30 Sleep apnea, unspecified
CPT/HCPCS: 99213

== ENCOUNTER → 2024-01-01 12:35 | Outpatient (BNVA) | payer OTHER, SELFPAY | PROVIDERS: PCP Nurse Practitioner Primary Care; Visit Provider Internal Medicine | DX: R94.31 Abnormal electrocardiogram [ECG] [EKG] (principal); E66.01 Morbid (severe) obesity due to excess calories; E11.8 Type 2 diabetes mellitus with unspecified complications; G47.30 Sleep apnea, unspecified; I45.10 Unspecified right bundle-branch block; Z68.42 Body mass index [BMI] 45.0-49.9, adult | CPT/HCPCS: 99212 ==

== ENCOUNTER 2024-01-08 08:29 | Outpatient (AMB) | payer OTHER, SELFPAY ==
--- OUTSIDE RECORDS SUMMARY | 2024-01-08 08:31 | XMS_ITS | Patient Health Record ---
Author Organization [facility] Address [address] [place] [id number] Care Team Providers Care Office Service Coordinator Name Role Phone No, PCP Primary Care Provider Miriam Smith Unavailable [phone] Allergies Allergen (clinical drug ingredient) Drug/Non Drug Allergy documented on EMR Reaction Allergy Type Onset Date Status carbamazepine TEGretol Unknown Drug Allergy Act denia Reason For Referral No Information Medications Medication SIG (Take, Route, Fr equency, Duration) Notes Start Date End Date Status topiramate Active olanzapine Active metformin Active atorvastatin Active Jardiance Active lisinopril Active amoxicillin 875 mg 1 tab(s) orally ever y 12 hours for 7 days 06/17/2022 Active Plan Of Treatment No Information Insurance Providers Payer Name Payer Address Payer Phone Subscriber Number Group Number Insured Name Patient Relationship to Insured Coverage Start Date Coverage End Date Health Safety [facility] [address] [place] [address] [id number] Luis Antonio Arita Self - patient is the insured 2 Medical (General) History Medical History History ICD Code Diabetes type II Epilepsy / Seizures Hydrocephalus at L ankle surgery (6 pins placed, broken a nkle)
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
== END 2024-01-08 11:01 | disposition home or self-care (01) ==
LOC: HO.HMCC 08:29
PROVIDERS: PCP Nurse Practitioner Primary Care; Visit Provider Internal Medicine
DX: E11.9 Type 2 diabetes mellitus without complications (principal); Z79.4 Long term (current) use of insulin; R79.89 Other specified abnormal findings of blood chemistry; D50.9 Iron deficiency anemia, unspecified; F99 Mental disorder, not otherwise specified; Z86.59 Personal history of other mental and behavioral disorders

== ENCOUNTER → 2024-01-08 08:29 | Outpatient (BNVA) | payer OTHER, SELFPAY | PROVIDERS: PCP Nurse Practitioner Primary Care; Visit Provider Internal Medicine ==

== ENCOUNTER 2024-01-16 11:54 | Outpatient (AMB) | payer OTHER, SELFPAY ==
[2024-01-16 11:57] VITALS: BP 120/70; PULSE 82; O2SAT 96; BMI 48.4
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
== END 2024-01-16 12:32 | disposition home or self-care (01) ==
PROVIDERS: Visit Provider Internal Medicine
DX: E11.9 Type 2 diabetes mellitus without complications (principal); Z79.4 Long term (current) use of insulin; Z68.42 Body mass index [BMI] 45.0-49.9, adult; E66.01 Morbid (severe) obesity due to excess calories; G40.909 Epilepsy, unspecified, not intractable, without status epilepticus; F99 Mental disorder, not otherwise specified; Z86.59 Personal history of other mental and behavioral disorders

== ENCOUNTER → 2024-01-16 11:54 | Outpatient (BNVA) | payer OTHER, SELFPAY | PROVIDERS: Visit Provider Internal Medicine | DX: E11.9 Type 2 diabetes mellitus without complications (principal); E66.01 Morbid (severe) obesity due to excess calories; F99 Mental disorder, not otherwise specified; R79.89 Other specified abnormal findings of blood chemistry; G40.909 Epilepsy, unspecified, not intractable, without status epilepticus; Z86.59 Personal history of other mental and behavioral disorders; Z79.4 Long term (current) use of insulin | CPT/HCPCS: 99212 ==

== ENCOUNTER 2024-02-10 09:03 | Outpatient (AMB) | payer OTHER, SELFPAY ==
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
--- OUTSIDE RECORDS SUMMARY | 2024-02-10 09:05 | XMS_ITS | Patient Health Record ---
Author Organization [facility] Address [address] [place], [place] [id number] Care Team Providers Care Field Artillery Basic Name Role Phone No, PCP Primary Care Provider Miriam Smith Unavailable [phone] Allergies Allergen (clinical drug ingredient) Drug/Non Drug [...] [facility] [address] [place] [address] [phone] Luis Antonio Arita Self - patient is the insured 2 Medical (General) History Medical History History ICD Code Diabetes type II Epilepsy / Seizures Hydrocephalus at L ankle surgery (6 pins placed, broken a nkle)
[2024-02-10 09:07] VITALS: BP 120/74; PULSE 84; O2SAT 99; BMI 48.0
== END 2024-02-10 09:25 | disposition home or self-care (01) ==
PROVIDERS: PCP Internal Medicine; Visit Provider Physician Assistant
DX: M79.672 Pain in left foot (principal)

== ENCOUNTER → 2024-02-10 09:03 | Outpatient (BNVA) | payer OTHER, SELFPAY | PROVIDERS: PCP Internal Medicine; Visit Provider Physician Assistant | DX: M79.672 Pain in left foot (principal) | CPT/HCPCS: 99212 ==

== ENCOUNTER 2024-03-08 13:46 | Outpatient (AMB) | payer OTHER, SELFPAY ==
--- OUTSIDE RECORDS SUMMARY | 2024-03-08 13:49 | XMS_ITS | Patient Health Record ---
Author Organization [facility] Address [address] [place], [place] [id number] Care Team Providers Care Graduate Fellow Name Role Phone No, PCP Primary Care Provider Miriam Smith Unavailable [phone] Allergies Allergen (clinical drug ingredient) Drug/Non Drug [...] Start Date Coverage End Date Health Safety [facility] [address] [place] [address] [id number] Luis Antonio Arita Self - patient is the insured 2 Medical (General) History Medical History History ICD Code Diabetes type II Epilepsy / Seizures Hydrocephalus at L ankle surgery (6 pins placed, broken a nkle)
[2024-03-08 14:00] VITALS: BP 116/70; PULSE 87; O2SAT 94; BMI 49.0
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
== END 2024-03-08 14:38 | disposition home or self-care (01) ==
PROVIDERS: PCP Internal Medicine; Visit Provider Nurse Practitioner Family
DX: G47.33 Obstructive sleep apnea (adult) (pediatric) (principal); G40.909 Epilepsy, unspecified, not intractable, without status epilepticus
CPT/HCPCS: 99214

== ENCOUNTER → 2024-03-08 13:46 | Outpatient (BNVA) | payer OTHER, SELFPAY | PROVIDERS: PCP Internal Medicine; Visit Provider Nurse Practitioner Family | DX: G47.33 Obstructive sleep apnea (adult) (pediatric) (principal); G40.909 Epilepsy, unspecified, not intractable, without status epilepticus | CPT/HCPCS: 99212 ==

== ENCOUNTER 2024-05-12 08:44 | Outpatient (AMB) | payer OTHER, SELFPAY ==
[2024-05-12 08:47] VITALS: BP 118/70; PULSE 82; TEMP 36.7; O2SAT 97; BMI 48.0
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
--- OUTSIDE RECORDS SUMMARY | 2024-05-12 09:25 | XMS_ITS | Encounter Summary ---
Author Organization [facility] Address [address] [place] [address] Care Team Providers Care Process Safety Manager Name Role Phone Community, Pcp Primary Care Provider Unavailabl e Encounter Details Date Type Department Care Team Description 04/15/2023 Ct Scan Special Procedures Technologist Report Medical Records [address] [place] [id number] Lefty Angel MD Social History Tobacco Use Types Packs/Day Years Used Date Smoking Tobacco: Never Smokeless Tobacco: Never Alcohol Use Standard Drinks/Week Comments No 0 (1 standard drink = 0.6 oz pur e alcohol) Sex Assigned at Date Recorded Not on file Job Start Date Occupation Industry Not on file Not on file Not on file documented as of this encounter Plan of Treatment Not on file documented as of this encounter Visit Diagnoses Not on filedocumented in this encounter Care Teams Process Safety Manager Relationship Specialty Start Date End Date Community, Pcp PCP - General Internal Medicine 01/23/23 documented as of this encounter
--- OUTSIDE RECORDS SUMMARY | 2024-05-12 09:25 | XMS_ITS | Encounter Summary ---
Author Organization [facility] Address [address] [place] [address] Care Team Providers Care Machine Fixer Name Role Phone Community, Pcp Primary Care Provider Jin Mancuso MD Primary Care Provider [phone] [facility], Pcp Primary Care Provider Clyde Lim PA-C Primary Care Provider Unavail Dileep [place] MD Primary Care Provider [phone] [facility], Pcp Primary Care Provider Ulices arevalo Encounter Details Date Type Department Care Team Description 04/14/2014 Release of Information Medical Records [address] [place] [id number] Abstract, Provider Social History Tobacco Use Types Packs/Day Years Used Date Smoking Tobacco: Never Alcohol Use Standard Drinks/Week Comments [...] on filedocumented in this encounter Care Teams Machine Fixer Relationship Specialty Start Date End Date Community, Pcp PCP - General Internal Medicine 03/10/12 08/31/14 Jin Trevino MD [address] [place] [address] PCP - General Internal Medicine 09/01/14 07/11/19 [facility], Pcp PCP - General Internal Medicine 07/12/19 06/27/20 Clyde Maher PA-C [address] [place] [address] PCP - General Med/Peds 06/28/20 07/15/21 Dileep Peterson MD [address] [place] [address] PCP - General Internal Medicine 07/16/21 01/22/23 [facility], Pcp PCP - General Internal Medicine 01/23/23 documented as of this encounter
--- OUTSIDE RECORDS SUMMARY | 2024-05-12 09:25 | XMS_ITS | Encounter Summary ---
Author Organization [facility] Address [address] [place] [address] Care Team Providers Care Thoracic Surgeon Name Role Phone Jin Trevino MD Primary Care Provider [phone] [facility], Pcp Primary Care Provider Unavailabl e Clyde Maher PA-C Primary Care Provider Unavail able Dileep Peterson MD Primary Care Provider [phone] [facility], Pcp Primary Care Provider Unavailabl e Encounter Details Date Type Department Care Team Description 04/24/2018 Orders Only Adult Medicine - [place] [address] [place] [address] Nae Crisostomo FNP Elevated liver function tests 04/24/18 (Primary Dx) Social History Tobacco Use Types Packs/Day Years [...] on file documented as of this encounter Results * (ABNORMAL) HEPATIC FUNCTION (LIVER) PANEL (07/29/2018 9:10 AM EDT) TOTAL PROTEIN (TP) 7.4 6.0 - 8.0 G/dL 07/29/2018 1:24 PM EDT [facility] Albumin 3.5 3.2 - 5.0 G/dL 07/29/2018 1:24 PM EDT [facility] BILIRUBIN TOTAL 0.5 0.0 - 1.4 mg/dL 07/29/2018 1:24 PM EDT [facility] BILIRUBIN DIRECT 0.2 0.0 - 0.3 mg/dL 07/29/2018 1:24 PM EDT [facility] BILIRUBIN INDIRECT 0.3 0.0 - 1.1 mg/dL 07/29/2018 1:24 PM EDT [facility] SGOT 42 10 - 42 U/L 07/29/2018 1:24 PM EDT [facility] SGPT 49 10 - 60 U/L 07/29/2018 1:24 PM EDT [facility] ALK PHOS 172(H) 42 - 121 U/L 07/29/2018 1:24 PM EDT [facility] 07/29/2018 9:10 AM EDT 07/29/2018 9:10 AM EDT Nae Crisostomo [employer] [facility] documented in this encounter Visit Diagnoses Diagnosis Elevated liver function tests 04/24/18- Primary Other abnormal blood chemistry documented in this encounter Care Teams Thoracic Surgeon Relationship Specialty Start Date End Date Jin Trevino MD [address] [place] [address] PCP - General Internal Medicine 09/01/14 07/11/19 [facility], Pcp [address] [place] [phone] PCP - General Internal Medicine 07/12/19 06/27/20 Clyde Maher PA-C [address] [place] [address] PCP - General Med/Peds 06/28/20 07/15/21 Dileep Peterson MD [address] [place] [address] PCP - General Internal Medicine 07/16/21 01/22/23 Community, Pcp [address] [place] [id number] PCP - General Internal Medicine 01/23/23 documented as of this encounter
--- OUTSIDE RECORDS SUMMARY | 2024-05-12 09:25 | XMS_ITS | Encounter Summary ---
Author Organization [facility] Address [address] [place] [address] Care Team Providers Care Anatomy Teacher Name Role Phone Jin Trevino MD Primary Care Provider [phone] [facility], Pcp Primary Care Provider Unavailabl e Clyde Maher PA-C Primary Care Provider Unavail able Dileep Peterson MD Primary Care Provider [phone] [facility], Pcp Primary Care Provider Unavailabl e Reason for Visit * Reason Onset Date Comments medication problems 01/19/2019 Dulaglutide (TRULICITY) 1.5 MG/0.5ML Solution Pen-injector Encounter Details Date Type Department Care Team Description 01/19/2019 Telephone Adult Medicine - [address] [address] Jin Trevino MD [address] [place] [id number] medication problems (Dulaglutide (TRULICITY) 1.5 MG/0.5ML Solution Pen-injector) Social History Tobacco Use Types Packs/Day Years Used Date Smoking Tobacco: Never Smokeless Tobacco: Never Alcohol Use Standard Drinks/Week Comments No 0 (1 standard drink = 0.6 oz pur e alcohol) Sex Assigned at Date Recorded Not on file Job Start Date Occupation Industry Not on file Not on file Not on file documented as of this encounter Miscellaneous Notes * Telephone Encounter - Aleksandra Diaz PA-C - 01/19/2019 5:03 PM EST Have patient come in to be evaluated. * Telephone Encounter - Marsha Sexton L.P.N. - 01/19/2019 12:49 PM EST Pt states ever x starting trulicity He has been itchy , like a son of a gun denies hives , sob/ thinks he forgot this past Sundays dose and already his itchiness is going away / pls advise * Telephone Encounter - Mely Maddox - 01/19/2019 12:36 PM EST Who is calling? The patient Name of the medication Dulaglutide (TRULICITY) 1.5 MG/0.5ML Solution Pen-injecto What is the specific problem or interaction? Patient states he has been itchy since he started taking the medication If the patient is having a problem with taking the med - how long has the problem been going on? N/A documented in this encounter Plan of Treatment Not on file documented as of this encounter Visit Diagnoses Not on filedocumented in this encounter Care Teams Anatomy Teacher Relationship Specialty Start Date End Date Jin Trevino MD [address] [place] [phone] PCP - General Internal Medicine 09/01/14 07/11/19 [facility], Pcp [address] [place] [address] PCP - General Internal Medicine 07/12/19 06/27/20 Clyde Maher PA-C [address] [place] [address] PCP - General Med/Peds 06/28/20 07/15/21 Dileep Peterson MD [address] [place] [phone] PCP - General Internal Medicine 07/16/21 01/22/23 [facility], Pcp [address] [place] [address] PCP - General Internal Medicine 01/23/23 documented as of this encounter
--- OUTSIDE RECORDS SUMMARY | 2024-05-12 09:25 | XMS_ITS | Encounter Summary ---
Author Organization [facility] Address [address] [place] [address] Care Team Providers Care Pantograph Operator Name Role Phone Jin Trevino MD Primary Care Provider [phone] [facility], Pcp Primary Care Provider Unavailabl e Clyde Maher PA-C Primary Care Provider Unavail able Dileep Peterson MD Primary Care Provider [phone] [facility], Pcp Primary Care Provider Unavailabl e Reason for Visit * Reason Onset Date Comments REFERRAL 12/19/2016 Encounter Details Date Type Department Care Team Description 12/19/2016 Telephone [facility] [address] [place] [address] Nasima Henning [facility] [address] [place] [address] REFERRAL Social History Tobacco Use Types Packs/Day Years [...] encounter Miscellaneous Notes * Telephone Encounter - [place] - 12/19/2016 3:56 PM EDT Cannot get auth that far out in advance. * Telephone Encounter - Chelo Tapia - 12/19/2016 10:08 AM EDT Pt unable to schedule sleep study during authorization dates. Please obtain new authorization dates. Sleep study scheduled 02/16/17. [facility] Auth # [id number] 11/19/16 - 12/19/16 AQ-MOVE UP SUN MON ONLY-call cell# freedom sousa. Thank you. documented in this encounter Plan of Treatment Not on file documented as of this encounter Visit Diagnoses Not on filedocumented in this encounter Care Teams Pantograph Operator Relationship Specialty Start Date End Date Jin Trevino MD [address] [place] [address] PCP - General Internal Medicine 09/01/14 07/11/19 [facility], Pcp [address] [place] [address] PCP - General Internal Medicine 07/12/19 06/27/20 Clyde Maher, JAYLANC [address] [place] [address] PCP - General Med/Peds 06/28/20 07/15/21 Dileep Peterson MD [address] [place] [address] PCP - General Internal Medicine 07/16/21 01/22/23 [facility], Pcp [address] [place] [address] PCP - General Internal Medicine 01/23/23 documented as of this encounter
--- OUTSIDE RECORDS SUMMARY | 2024-05-12 09:25 | XMS_ITS | Encounter Summary ---
Author Organization [facility] Address [address] [place] [address] Care Team Providers Care Lock Setter Name Role Phone Community, Pcp Primary Care Provider Unavailabl e Encounter Details Date Type Department Care Team Description 05/28/2023 Orders Only Medical Records [address] [place] [address] Abstract, Provider Social History Tobacco Use Types [...] on file documented as of this encounter Procedures Procedure Name Priority Date/Time Associated Diagnosis Comments OUTSIDE LAB Routine 05/05/2023 documented in this encounter Results * OUTSIDE LAB (05/05/2023) Provider Abstract LAB documented in this encounter Visit Diagnoses Not on filedocumented in this encounter Care Teams Lock Setter Relationship Specialty Start Date End Date Community, Pcp PCP - General Internal Medicine 01/23/23 documented as of this encounter
--- OUTSIDE RECORDS SUMMARY | 2024-05-12 09:25 | XMS_ITS | Encounter Summary ---
Author Organization [facility] Address [address] [place] [address] Care Team Providers Care Telecom Network Manager Name Role Phone Dileep Peterson MD Primary Care Provider [phone] [facility] Primary Care Provider Unavailabl e Reason for Visit * Reason Onset Date Comments Provider Call Back 12/07/2021 Encounter Details Date Type Department Care Team Description 12/07/2021 Telephone Adult Medicine - [address] [address] Dileep Peterson MD [address] [place] [address] Provider Call Back Social History Tobacco Use Types Packs/Day Years [...] encounter Miscellaneous Notes * Telephone Encounter - Vita Spaulding - 12/07/2021 12:32 PM EDT Patient is coming into office to sign a release * Telephone Encounter - Jannie Powell M.A. - 12/07/2021 12:27 PM EDT LMOM for patient to contact the office - Jannie Caro at [phone] - please re- message to pool ([phone]) if no answer Patient will need to sign a [place] * Telephone Encounter - Du Martino - 12/07/2021 12:19 PM EDT Caller requesting call back from provider: Is the caller the patient? YES If caller is not the patient, what is the callers name? N/A Callers relationship to patient? N/A If person calling is not the patient themselves, is there a verbal release in FYI or permanent comments for this person: NO Reason for call back: Pt calling because he states he needs his most recent lab results from 08/13/21sent over to his mental health provider. Pls fax to [phone], attn to Susan Moeller. Caller offered to speak with the nurse for assistance: YES Response: Patient offered to speak with nurse for assistance and patient agreed. Message forwarded to nurse. documented in this encounter Plan of Treatment Not on file documented as of this encounter Visit Diagnoses Not on filedocumented in this encounter Care Teams Telecom Network Manager Relationship Specialty Start Date End Date Dileep Peterson MD [address] [facility] [place] [address] PCP - General Internal Medicine 07/16/21 01/22/23 [facility] [address] [place] [address] PCP - General Internal Medicine 01/23/23 documented as of this encounter
--- OUTSIDE RECORDS SUMMARY | 2024-05-12 09:25 | XMS_ITS | Encounter Summary ---
Author Organization [facility] Address [address] [place] [address] Care Team Providers Care Home Appliance Technician Name Role Phone Dileep Peterson MD Primary Care Provider [phone] [facility], [facility] Primary Care Provider Unavailabl e Reason for Visit * Reason Comments E-prescribe Rx Request Encounter Details Date Type Department Care Team Description 08/14/2021 Refill [place] [address] Malathi Clayton PA-C [address] [place] [address] E-prescribe Rx Request Social History Tobacco Use Types Packs/Day Years Used Date Smoking Tobacco: Never Smokeless Tobacco: Never Alcohol Use Standard Drinks/Week Comments No 0 (1 standard drink = 0.6 oz pur e alcohol) Sex Assigned at Date Recorded Not on file Job Start Date Occupation Industry Not on file Not on file Not on file COVID-19 Exposure Response Date Recorded In the last 10 days, have yo u been in contact with someone who was confirmed or suspected to have Coronavirus/COVID-19? No / Unsure 08/13/2021 12:48 PM EDT documented as of this encounter Miscellaneous Notes * Telephone Encounter - Kaye Boyd M.A. - 08/15/2021 3:10 PM EDT Sonja 05/31/21 Ov 08/31/21 Lab Results Component Value Date HGBA1C 9.8 05/31/2021 MALBUR 10.3 01/16/2021 MALBCR 16.6 01/16/2021 CHOL 135 07/07/2020 LDL 68 07/07/2020 HDL 34 07/07/2020 TRIG 169 07/07/2020 GLU 194 05/31/2021 CREAT 0.66 05/31/2021 * Telephone Encounter - Colton Chávez M.A. - 08/15/2021 10:44 AM EDT Routing to endo pool - prescribed by Malathi Clayton documented in this encounter Plan of Treatment Not on file documented as of this encounter Visit Diagnoses Not on filedocumented in this encounter Care Teams Home Appliance Technician Relationship Specialty Start Date End Date Dileep Peterson MD [address] [facility] [address] PCP - General Internal Medicine 07/16/21 01/22/23 [facility], Pcp [address] [facility] [place] [address] PCP - General Internal Medicine 01/23/23 documented as of this encounter
--- OUTSIDE RECORDS SUMMARY | 2024-05-12 09:25 | XMS_ITS | Encounter Summary ---
Author Organization [facility] Address [address] [place] [address] Care Team Providers Care Biometrics Head Name Role Phone Dileep Peterson MD Primary Care Provider [phone] [facility], [facility] Primary Care Provider Unavailabl e Reason for Visit * Reason Comments E-prescribe Rx Request Encounter Details Date Type Department Care Team Description 09/04/2021 Refill Endocrinology - [address] [address] Malathi Clayton PA-C [address] [place] [address] E-prescribe Rx Request Social History Tobacco Use [...] Telephone Encounter - Kaye Boyd M.A. - 09/04/2021 11:37 AM EDT Sonja 05/31/21 Lab Results Component Value Date HGBA1C 9.8 05/31/2021 MALBUR 10.3 01/16/2021 MALBCR 16.6 01/16/2021 CHOL 135 07/07/2020 LDL 68 07/07/2020 HDL 34 07/07/2020 TRIG 169 07/07/2020 GLU 194 05/31/2021 CREAT 0.66 05/31/2021 * Telephone Encounter - Lidia Stuart - 09/04/2021 10:29 AM EDT Patient would like script to be: E-PRESCRIBED/FAXED TO PHARMACY WHEN WAS THE PATIENT'S LAST APPOINTMENT IN ADULT MEDICINE? 08.13.21 WHEN WAS THE LAST TIME THE PATIENT SAW THEIR PCP? N/a Does patient have an upcoming appointment? no (THE MEDICATION REQUESTED IS ON THE MED LIST ABOVE) All of the medications requested were on the CURRENT MEDS list Did you check the Pharmacy information above?: YES Patient wants: 90 -day supply Is this a mail order prescription request ? YES If the refill is from a FAXED refill request what is the RX # listed on the fax? N/A Patients current insurance carrier is: Payor: [employer] / Plan: [employer]ON O F 1+/$10 / Product Type: HMO [id number] documented in this encounter Plan of Treatment Not on file documented as of this encounter Visit Diagnoses Not on filedocumented in this encounter Care Teams Biometrics Head Relationship Specialty Start Date End Date Dileep Peterson MD [address] [place] [address] PCP - General Internal Medicine 07/16/21 01/22/23 [facility], Pcp [address] [place] [address] PCP - General Internal Medicine 01/23/23 documented as of this encounter
--- OUTSIDE RECORDS SUMMARY | 2024-05-12 09:25 | XMS_ITS | Clinical Summary ---
Author Organization [facility] [address] [place] [address] [place] [phone] Phone Care Team Providers Care Software Developer Mid Level Name Role Phone Dileep Peterson MD Primary Care Provider [phone] Allergies Active Allergy Reactions Criticality Noted Date Comments Carbamazepine High 04/12/2014 Loss white cells Dulaglutide Itching 07/08/2019 Medications atorvastatin (LIPITOR) 40 mg tablet Take 1 Tablet by mouth daily. 06/28/2022 Active pen needle, diabetic (BD Ultra-Fine Short Pen Needle) 31 gauge x 5/16 needle Inject 1 Each into the skin daily. Use 4xdaily with Lantus and novolog Insulin. 10/16/2022 Active blood-glucose meter kit Use to check blood sugar twice a day. DX-E11.49. NIDDM 06/06/2015 Active flash glucose sensor (FreeStyle Rukhsana 2 Sensor) kit 1 Device by Does not apply route every 14 days. 08/04/2023 Active empagliflozin (Jardiance) 25 mg tablet Take 1 Tablet by mouth daily. 06/28/2022 Active FREESTYLE LANCETS MISC Use to test blood sugars twice a day *Freestyle* 06/10/2017 Active blood sugar diagnostic (FreeStyle Lite Strips) test strip Use to test blood sugars twice a day freestyle* * 06/10/2017 Active blood-glucose meter kit Use to test blood sugars twice a day freestyle* * 06/10/2017 Active insulin glargine (Lantus Solostar U-100 Insulin) 100 unit/mL (3 mL) injection pen Inject 52 Units into the skin daily. 09/23/2023 Active pen needle, diabetic (Lite Touch Insulin Pen [place]) 29 gauge x 1/2 needle Used with lantus. 11/15/2020 Active lisinopriL (PRINIVIL,ZESTR IL) 2.5 mg tablet Take 1 Tablet by mouth daily. 06/28/2022 Active metFORMIN (GLUCOPHAGE) 1,000 mg tablet Take 1 tablet twice daily with food. 09/29/2023 Active OLANZapine (ZyPREXA) 2.5 mg tablet Take 1 Tab by mouth at bedtime for 30 days. 12/23/2018 Active ONETOUCH DELICA LANCETS MISC Use to test blood sugar twice a day. [id number].NI DDM. 06/12/2015 Active topiramate (TOPAMAX) 100 mg tablet Take 1 Tablet by mouth 2 Times Daily. 01/01/2023 Active Ozempic 1 mg/dose (4 mg/3 mL) injection pen Inject 1 mg into the skin every 7 days. 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 Date 02/16/2017 . SE 72 % SM 74 %; spent 20 % of the study in REM. At the optimal pressure of 16 CPAP; RDI 0 (AHI 0), Central apneas 0; Obstructive apneas 0; Mixed apneas 0; hypopneas 0; RERAs 0; and, average oxygen saturation was 93%. For the entire study, PLMs ~4. Pure hypercholesterolemia 06/01/2015 Chronic ankle pain 05/30/2015 Subclinical hypothyroidism 11/10/2014 Nightmares 04/12/2014 Seizure disorder 04/12/2014 Immunizations Name Administration Dates Next Due Moderna SARS-CoV-2 COVID-19, mRNA, LNP-S, preservative free 01/24/2021,06/09/2020,05/12/2020 Pneumococcal polysaccharide 23 valent (Pneumovax 23) 2yo and older 08/13/2021 Tdap Tetanus diptheria acell ular pertussis (Boostrix; Adacel) 7yo and older 10/26/2014 Surgical History Surgery Date Site/Laterality Comments OTHER SURGICAL HISTORY PROCEDURE: [place] REPAIR PRIMARY OPEN/PRQ RUPTURED ACHILLES TENDON COLONOSCOPY 03/13/2015 PROCEDURE: HISTORICAL COLONOSCOPY; COMMENT: [facility] - sigmoid tics, internal hems; o/w normal to TI ANKLE SURGERY 2014 PROCEDURE: HISTORICAL ANKLE SURGERY Medical History Medical History Date Comments Seizure disorder ([facility]) 04/12/2014 DX:Se izure disorder ([facility]) Morbid obesity with BMI of 4 5.0-49.9, adult ([facility]) 03/11/2017 DX:Morbid obesity with BMI o f 45.0-49.9, adult ([facility]) Diabetes mellitus type 2 wit h neurological manifestations ([facility]) 04/17/2017 DX:Diabetes leora itus type 2 with neurological manifestations ([facility]) Polyneuropathy 06/05/2017 DX:Polyneuropath y Brief reactive psychosis ([facility]) 03/27/2017 DX:Brief reactive psychosis ([facility]) Chronic ankle pain 05/30/2015 DX:Chronic an kle pain History of hydrocephalus as a child 11/02/2015 DX:History of hydrocephalus as a child; COMMENT: CT head 2011 shows break in the ventricular catheter at the level of the calvarium Nightmares 04/12/2014 DX:Nightmares Obstructive sleep apnea 11/15/2016 DX:Obstr uctive sleep apnea; COMMENT: [facility] Home Polysomnogram: Date 11/08/2016; AHI 94, Unclassified apneas 1; Obstructive apneas 248; Central apneas 5; Mixed apneas 0; hypopneas 177; average oxygen saturation 91% (lowest 75% with saturations <88% for 21% of study) [facility] Polysomnogram treatment study. Date 02/16/2017 . SE 72 % SM 74 %; spent 20 % of the study in REM. At the optimal pressure of 16 CPAP;* Subclinical hypothyroidism 11/10/2014 DX:Chowdary bclinical hypothyroidism Hypertriglyceridemia DX:Hypertri glyceridemia Family History Medical History Relation Name Comments No Known Problems Aunt No Known Problems Brother 1 No Known Problems Brother 2 No Known Problems Father No Known Problems Maternal Grandfather No Known Problems Maternal Grandmother No Known Problems Mother No Known Problems Other No Known Problems Paternal Grandfather No Known Problems Paternal Grandmother No Known Problems Sister No Known Problems Uncle Blindness Neg Hx Cataracts Neg Hx Glaucoma Neg Hx Macular degeneration Neg Hx Strabismus Neg Hx Relation Name Status Comments Aunt Brother 1 Alive Brother 2 Alive Father Maternal Grandfather Maternal Grandmother Mother Alive Other Paternal Grandfather Paternal Grandmother Sister Uncle Social History Tobacco Use Types Packs/Day Years Used Date Smoking Tobacco: Never Smokeless Tobacco: Never Alcohol Use Standard Drinks/Week Comments No 0 (1 standard drink = 0.6 oz pur e alcohol) Sex and Gender Information Value Date Recorded Sex Assigned at Not on file Legal Sex Male 6:36 PM EST Gender Identity Not on file Sexual Orientation Not on file Obstetrics History Last Filed Vital Signs Vital Sign Reading Time Taken Comments Blood Pressure 100/80 09/04/2023 1:01 PM EDT Pulse 112 09/04/2023 1:01 PM EDT Temperature - - Respiratory Rate - - Oxygen Saturation - - Inhaled Oxygen Concentration - - Weight 153 kg (338 lb) 09/04/2023 1:01 PM EDT Height 180.3 cm (5' 11 ) 09/04/2023 1:01 PM EDT Body Mass Index 47.14 09/04/2023 1:01 PM EDT Plan of Treatment Health Maintenance Due Date Last Done Comments Diabetes: Annual Foot Exam 1980 Diabetes: Annual Retina Eye Exam 1980 Hepatitis B Vaccines (1 of 3 - 19+ 3-dose series) 1989 Zoster Vaccines (1 of 2) 2020 Depression Screening 02/16/2022 HIV Screening 02/16/2022 Social Influencers of Health Screening 02/16/2022 Pneumococcal Vaccine: 50+ Years (2 of 2 - PCV) 08/13/2022 08/13/2021 Pneumococcal Vaccine: Pediatrics (0 to 5 Years) and At-Risk Patients (6 to 64 Years) (2 of 2 - PCV) 08/13/2022 08/13/2021 COVID-19 Vaccine (2023-2 5 season) 2023 01/24/2021, 06/09/2020, 05/12/2020 Influenza Vaccine (#1) 2023 Diabetes: Blood Sugar Contro l Test (HGBA1C) 01/17/2024 07/17/2023, 07/17/2023 Diabetes: Annual Urine Albumin-Creatinine Ratio (uACR) 07/16/2024 07/17/2023 Diabetes: Annual GFR (Glomerular Filtration Rate) 07/16/2024 07/17/2023, 07/17/2023 DTaP,Tdap,and Td Vaccines (2 - Td or Tdap) 10/26/2024 10/26/2014 Colorectal Cancer Screening: Colonoscopy 03/13/2025 03/13/2015 Cholesterol Screening (Lipid Panel) 07/16/2028 07/17/2023, 07/17/2023 Hepatitis C Screening Completed 12/28/2021 HIB Vaccines Aged Out No longer eligi ble based on patient's age to complete this topic HPV Vaccines Aged Out No longer eligi ble based on patient's age to complete this topic Hepatitis A Vaccines Aged Out No long er eligible based on patient's age to complete this topic IPV Vaccines Aged Out No longer eligi ble based on patient's age to complete this topic MMR Vaccines Aged Out No longer eligi ble based on patient's age to complete this topic Meningococcal ACWY Vaccine Aged Out N o longer eligible based on patient's age to complete this topic Meningococcal B Vacine Aged Out No lo nger eligible based on patient's age to complete this topic RSV Immunization Patients Under 20 months Aged Out No longer eligible b ased on patient's age to complete this topic Varicella Vaccines Aged Out No longer eligible based on patient's age to complete this topic Procedures Procedure Name Priority Date/Time Associated Diagnosis Comments HM URINE ALBUMIN CREATININE RATIO Routine 07/17/2023 ANNUAL BMP BLOOD TEST Routine 07/17/2023 HEMOGLOBIN A1C Routine 07/17/2023 LIPID PANEL Routine 07/17/2023 HEPATITIS C SCREENING Routine 12/28/2021 COLONOSCOPY Routine 03/13/2015 from Last 3 Months or Most Recently Relevant to Health Maintenance Results * Urine Albumin Creatinine Ratio (07/17/2023) [facility] Urine Albumin Creatinine Ratio Abstracted Result [facility] Provider HEALTH MAINTENANCE Final Result * Annual BMP Blood Test (07/17/2023) [facility] Annual BMP Blood Test Abstracted Result [facility] Provider HEALTH MAINTENANCE Final Result * (ABNORMAL) Hemoglobin A1c (07/17/2023) [facility] Hemoglobin A1C 11.5(A) <=6.5 % Blood Venous blood specimen / Unknown Result [facility] Provider LAB BLOOD ORDERABLES Lazara l Result * (ABNORMAL) Lipid panel (07/17/2023) [facility] LDL/HDL Ratio 5(A) 0 - 4 Triglycerides 201(A) 0 - 150 mg/dL Cholesterol 130 0 - 200 mg/dL HDL 27(A) >=40 mg/dL LDL Cholesterol 63 0 - 100 mg/dL Blood Venous blood specimen / Unknown Result [facility] Provider LAB BLOOD ORDERABLES Lazara l Result * Hepatitis C Screening (12/28/2021) [facility] Hepatitis C Screening Abstracted Result [facility] Provider HEALTH MAINTENANCE Final Result * Colonoscopy (03/13/2015) [facility] Colonoscopy No Interpretation , Abstracted Anatomical Region Laterality Modality Other Result [facility] Provider HEALTH MAINTENANCE Final Result from Last 3 Months or Most Recently Relevant to Health Maintenance Insurance [facility] [place] [address] Care Teams Software Developer Mid Level Relationship Specialty Start Date End Date Dileep Peterson MD [address] [facility] [place] [place] [address] PCP - General Internal Medicine 07/16/21
--- OUTSIDE RECORDS SUMMARY | 2024-05-12 09:25 | XMS_ITS | Encounter Summary ---
Author Organization [facility] Address [address] [place] [address] Care Team Providers Care Insole Tack Puller Hand Name Role Phone Community, Pcp Primary Care Provider Unavailabl e Reason for Visit * Reason Onset Date Comments New Med Request 12/09/2023 Encounter Details Date Type Department Care Team Description 12/09/2023 Telephone Endocrinology - [address] [address] Aleksandra Diaz PA-C [address] [place] [address] New Med Request Social History Tobacco Use Types Packs/Day [...] Telephone Encounter - Aleksandra Diaz PA-C - 12/09/2023 11:14 AM EDT Patient will need to make an appointment to discuss this further. He cancel his last visit * Telephone Encounter - Amy Mckeon - 12/09/2023 9:49 AM EDT Laurita from [facility] is calling requesting the patient be put on Rukhsana 3. She can be reached at [phone] documented in this encounter Plan of Treatment Not on file documented as of this encounter Visit Diagnoses Not on filedocumented in this encounter Care Teams Insole Tack Puller Hand Relationship Specialty Start Date End Date Community, Pcp PCP - General Internal Medicine 01/23/23 documented as of this encounter
--- OUTSIDE RECORDS SUMMARY | 2024-05-12 09:25 | XMS_ITS | Encounter Summary ---
Author Organization [facility] Address [address] [place] [address] Care Team Providers Care Bus Dispatcher Interstate Name Role Phone Community, Pcp Primary Care Provider Unavailabl e Encounter Details Date Type Department Care Team Description 05/15/2023 Scientific Software Developer Report Medical Records [address] [place] [address] Mehreen Melendez PA-C [address] [place] [address] Social History Tobacco Use Types Packs/Day Years [...] on filedocumented in this encounter Care Teams Bus Dispatcher Interstate Relationship Specialty Start Date End Date Community, Pcp PCP - General Internal Medicine 01/23/23 documented as of this encounter
--- OUTSIDE RECORDS SUMMARY | 2024-05-12 09:25 | XMS_ITS | Encounter Summary ---
Author Organization [facility] Address [address] [place] [address] Care Team Providers Care Manager Council Name Role Phone Jin Trevino MD Primary Care Provider [phone] [facility], Pcp Primary Care Provider Unavailabl e Clyde Maher PA-C Primary Care Provider Unavail able Dileep Peterson MD Primary Care Provider [phone] [facility], Pcp Primary Care Provider Unavailabl e Reason for Visit * Reason Onset Date Comments Appointment-Internal Referral 01/28/2019 ysiatry Encounter Details Date Type Department Care Team Description 01/28/2019 Telephone Adult Medicine B - [place] [address] [place] [address] Cheryl Steward PA-C [address] [address] Appointment-Internal Referral (Physiatry) Social History Tobacco Use Types Packs/Day Years [...] encounter Miscellaneous Notes * Telephone Encounter - Mila [place] - 01/28/2019 3:05 PM EST Luis Antonio Luna was called to schedule a consultation in Physiatry for shoulder pain and he declined to do so. He now has Health Safety Net Ins which we do no accept. He is looking into getting a new insurance for the new year but stated he would contact us if he decided to make an appointment. At this time the referral will be removed from our open scheduling report. In the future the patient can be scheduled if he decides to do so. Thank you, Mila Internal Central Referral Scheduling documented in this encounter Plan of Treatment Not on file documented as of this encounter Visit Diagnoses Not on filedocumented in this encounter Care Teams Manager Council Relationship Specialty Start Date End Date Jin Trevino MD [address] [place] [address] PCP - General Internal Medicine 09/01/14 07/11/19 [facility], Pcp [address] [place] [address] PCP - General Internal Medicine 07/12/19 06/27/20 Clyde Maher PA-C [address] [place] [address] PCP - General Med/Peds 06/28/20 07/15/21 Dileep Peterson MD [address] [place] [address] PCP - General Internal Medicine 07/16/21 01/22/23 [facility], Pcp [address] [place] [address] PCP - General Internal Medicine 01/23/23 documented as of this encounter
--- OUTSIDE RECORDS SUMMARY | 2024-05-12 09:25 | XMS_ITS | Encounter Summary ---
Author Organization [facility] Address [address] [place] [address] Care Team Providers Care Application Spec Name Role Phone Jin Trevino MD Primary Care Provider [phone] [facility], Pcp Primary Care Provider Unavailabl Clyde Campbell PA-C Primary Care Provider Unavail able Dileep Peterson MD Primary Care Provider [phone] [facility], Pcp Primary Care Provider Unavailabl e Encounter Details Date Type Department Care Team Description 11/14/2016 Orders Only Medical Records [address] [place] [address] Nae Crisostomo FNP Social History Tobacco Use Types Packs/Day Years [...] Name Priority Date/Time Associated Diagnosis Comments OUTSIDE SLEEP STUDY Routine 11/08/2016 documented in this encounter Results * OUTSIDE SLEEP STUDY (11/08/2016) Nae FITZPATRICK PULMONOLOGY documented in this encounter Visit Diagnoses Not on filedocumented in this encounter Care Teams Application Spec Relationship Specialty Start Date End Date Jin Trevino MD [address] [place] [address] PCP - General Internal Medicine 09/01/14 07/11/19 [facility] Pcp [address] [place] [address] PCP - General Internal Medicine 07/12/19 06/27/20 Clyde Maher PA-C [address] [place] [address] PCP - General Med/Peds 06/28/20 07/15/21 Dileep Peterson MD [address] [place] [address] PCP - General Internal Medicine 07/16/21 01/22/23 [facility], Pcp [address] [place] [address] PCP - General Internal Medicine 01/23/23 documented as of this encounter
--- OUTSIDE RECORDS SUMMARY | 2024-05-12 09:25 | XMS_ITS | Encounter Summary ---
Author Organization [facility] Address [address] [place] [address] Care Team Providers Care Kosher Inspector Name Role Phone [facility], Pcp Primary Care Provider Unavailabl e Reason for Visit * Reason Onset Date Comments medication problems 07/22/2023 Encounter Details Date Type Department Care Team Description 07/22/2023 Telephone Endocrinology - [place] [address] [place] [address] Aleksandra Diaz PA-C [address] [place] [address] medication problems Social History Tobacco Use Types Packs/Day Years [...] encounter Miscellaneous Notes * Telephone Encounter - Mehreen Campos M.A. - 07/24/2023 9:10 AM EDT Prior authorization for the ozempic was approved Approved from 07/22/23 until 07/21/24 Prior authorization case approval number # [id number] Approval faxed to [facility] Fatemeh Rowley Ma at [phone] * Telephone Encounter - Mehreen Campos M.A. 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 Trials Trulicity Jardiance Glyburide Lantus Novolog Metformin Janumet * Telephone Encounter - Jaky Webb - 07/22/2023 12:10 PM EDT Who is calling? A pharmacist: Pharmacy: [facility] Pharmacist Name: n/a Pharmacy Name of the medication Ozempic What is the specific problem or interaction? Pharmacy calling stating this medication requires a prior auth. If the patient is having a problem with taking the med - how long has the problem been going on? N/A documented in this encounter Plan of Treatment Not on file documented as of this encounter Visit Diagnoses Not on filedocumented in this encounter Care Teams Kosher Inspector Relationship Specialty Start Date End Date [facility], Pcp PCP - General Internal Medicine 01/23/23 documented as of this encounter
--- OUTSIDE RECORDS SUMMARY | 2024-05-12 09:25 | XMS_ITS | Encounter Summary ---
Author Organization [facility] Address [address] [place] [address] Care Team Providers Care Toy Parts Former Supervisor Name Role Phone [facility], Pcp Primary Care Provider Unavailabl e Encounter Details Date Type Department Care Team Description 04/15/2023 Electronic Tester Report Medical Records [address] [place] [address] Abstract, Provider Social History Tobacco Use Types [...] on filedocumented in this encounter Care Teams Toy Parts Former Supervisor Relationship Specialty Start Date End Date [facility], Pcp PCP - General Internal Medicine 01/23/23 documented as of this encounter
--- OUTSIDE RECORDS SUMMARY | 2024-05-12 09:25 | XMS_ITS | Encounter Summary ---
Author Organization [facility] Address [address] [place] [address] Care Team Providers Care Court Clerk Name Role Phone Clyde Maher PA-C Primary Care Provider Unavail able Dileep Peterson MD Primary Care Provider [phone] [facility], Pcp Primary Care Provider Unavailabl e Reason for Visit * Reason Comments E-prescribe Rx Request Encounter Details Date Type Department Care Team Description 06/12/2021 Refill Endocrinology - [address] [address] Malathi Clayton PA-C [address] [place] [address] E-prescribe Rx Request Social History Tobacco Use [...] suspected to have Coronavirus/COVID-19? No / Unsure 05/31/2021 10:35 AM EDT documented as of this encounter Miscellaneous Notes * Telephone Encounter - Kaye Boyd M.A. - 06/13/2021 9:46 AM EDT Sonja 05/31/21 Ov 08/31/21 Lab Results Component Value Date HGBA1C 9.8 05/31/2021 MALBUR 10.3 01/16/2021 MALBCR 16.6 01/16/2021 CHOL 135 07/07/2020 LDL 68 07/07/2020 HDL 34 07/07/2020 TRIG 169 07/07/2020 GLU 194 05/31/2021 CREAT 0.66 05/31/2021 * Telephone Encounter - Mirna Marroquin - 06/12/2021 3:11 PM EDT Patient would like script to be: E-PRESCRIBED/FAXED TO PHARMACY WHEN WAS THE PATIENT'S LAST APPOINTMENT IN ADULT MEDICINE? 05/31/21 WHEN WAS THE LAST TIME THE PATIENT SAW THEIR PCP? Same as above Does patient have an upcoming appointment? Yes 08/31/21 (THE MEDICATION REQUESTED IS ON THE MED LIST ABOVE) All of the medications requested were on the CURRENT MEDS list Did you check the Pharmacy information above?: YES Patient wants: 90 -day supply Is this a mail order prescription request ? NO If the refill is from a FAXED refill request what is the RX # listed on the fax? N/A Patients current insurance carrier is: Payor: [employer] / Plan: [employer] HMO F 1+/$10 / Product Type: HMO [id number] documented in this encounter Plan of Treatment Not on file documented as of this encounter Visit Diagnoses Not on filedocumented in this encounter Care Teams Court Clerk Relationship Specialty Start Date End Date Clyde Maher PA-C PCP - General Med/Peds 06/28/20 07/15/21 Dileep Peterson MD [address] [place] [address] PCP - General Internal Medicine 07/16/21 01/22/23 [facility], Pcp [address] [place] [address] PCP - General Internal Medicine 01/23/23 documented as of this encounter
--- OUTSIDE RECORDS SUMMARY | 2024-05-12 09:25 | XMS_ITS | Patient Health Record ---
Author Organization [facility] Address [address] [facility] [place] [id number] Care Team Providers Care Property Officer Name Role Phone No, PCP Primary Care Provider Miriam Smith Unavailable [phone] Allergies Allergen (clinical drug ingredient) Drug/Non Drug [...] Coverage End Date Health Safety [facility] [address] [place] [id number] Luis Antonio Arita Self - patient is the insured 2 Medical (General) History Medical History History ICD Code Diabetes type II Epilepsy / Seizures Hydrocephalus at L ankle surgery (6 pins placed, broken a nkle)
--- OUTSIDE RECORDS SUMMARY | 2024-05-12 09:26 | XMS_ITS | Encounter Summary ---
Author Organization [facility] Address [address] [place] [address] Care Team Providers Care Artist'S Manager Name Role Phone Clyde Maher PA-C Primary Care Provider Unavail able Dileep Peterson MD Primary Care Provider [phone] [facility], Pcp Primary Care Provider Unavailabl e Reason for Visit * Reason Onset Date Comments refill request 01/26/2021 Encounter Details Date Type Department Care Team Description 01/26/2021 Refill Medicine/Pediatrics - [address] [address] Clyde Maher PA-C refill request Social History Tobacco Use Types Packs/Day Years [...] encounter Miscellaneous Notes * Telephone Encounter - Lidia Stuart - 01/26/2021 9:10 AM EST Patient would like script to be: E-PRESCRIBED/FAXED TO PHARMACY WHEN WAS THE PATIENT'S LAST APPOINTMENT IN ADULT MEDICINE? 11.08.20 WHEN WAS THE LAST TIME THE PATIENT SAW THEIR PCP? 07.20.20 Does patient have an upcoming appointment? Yes 04.30.21 (THE MEDICATION REQUESTED IS ON THE MED LIST ABOVE) All of the medications requested were on the CURRENT MEDS list Did you check the Pharmacy information above?: YES Patient wants: 30 -day supply Is this a mail order prescription request ? YES If the refill is from a FAXED refill request what is the RX # listed on the fax? N/A Patients current insurance carrier is: Payor: [employer] / Plan: [employer]ACON PlandayO F 1+/$10 / Product Type: PlandayO [id number] documented in this encounter Plan of Treatment Not on file documented as of this encounter Visit Diagnoses Not on filedocumented in this encounter Care Teams Artist'S Manager Relationship Specialty Start Date End Date Clyde Maher PA-C PCP - General Med/Peds 06/28/20 07/15/21 Dileep Peterson MD [address] [place] [address] PCP - General Internal Medicine 07/16/21 01/22/23 [facility] [address] PCP - General Internal Medicine 01/23/23 documented as of this encounter
--- OUTSIDE RECORDS SUMMARY | 2024-05-12 09:26 | XMS_ITS | Encounter Summary ---
Author Organization [facility] Address [address] [place] [address] Care Team Providers Care Graphic Pre Press Trades Worker Name Role Phone Jin Trevino MD Primary Care Provider [phone] [facility], Pcp Primary Care Provider Unavailabl e Clyde Maher PA-C Primary Care Provider Unavail able Dileep Peterson MD Primary Care Provider [phone] [facility], Pcp Primary Care Provider Unavailabl e Reason for Visit * Reason Onset Date Comments REFERRAL 12/30/2014 Encounter Details Date Type Department Care Team Description 12/30/2014 Telephone Urology [address] [place] [address] Anirudh Soliz MD REFERRAL Social History Tobacco Use Types Packs/Day [...] encounter Miscellaneous Notes * Telephone Encounter - Luis Alberto Thompson - 12/30/2014 8:50 AM EDT Pt was referred to Urology re benign prostatic hypertrophy. Tried to contact pt several times by phone and sent out letter with no response.FYI documented in this encounter Plan of Treatment Not on file documented as of this encounter Visit Diagnoses Not on filedocumented in this encounter Care Teams Graphic Pre Press Trades Worker Relationship Specialty Start Date End Date Jin Trevino MD [address] [place] [address] PCP - General Internal Medicine 09/01/14 07/11/19 [facility], Pcp [address] [place] [address] PCP - General Internal Medicine 07/12/19 06/27/20 Clyde Maher PA-C [address] [place] [address] PCP - General Med/Peds 06/28/20 07/15/21 Dileep Peterson MD [address] [place] [address] PCP - General Internal Medicine 07/16/21 01/22/23 [facility], Pcp [address] [place] [address] PCP - General Internal Medicine 01/23/23 documented as of this encounter
--- OUTSIDE RECORDS SUMMARY | 2024-05-12 09:26 | XMS_ITS | Encounter Summary ---
Author Organization [facility] Address [address] [place] [address] Care Team Providers Care Patient Sitter Name Role Phone Jin Trevino MD Primary Care Provider [phone] [facility], Pcp Primary Care Provider Ulices e Clyde Maher PA-C Primary Care Provider Unavail able Dileep Peterson MD Primary Care Provider [phone] [facility], Pcp Primary Care Provider Unavailshaun e Encounter Details Date Type Department Care Team Description 09/11/2017 Release of Information Medical Records [address] [place] [address] Abstract, Provider Social History Tobacco Use Types [...] on filedocumented in this encounter Care Teams Patient Sitter Relationship Specialty Start Date End Date Jin Trevino MD [address] [place] [address] PCP - General Internal Medicine 09/01/14 07/11/19 [facility], Pcp [address] [place] [address] PCP - General Internal Medicine 07/12/19 06/27/20 Clyde Maher PA-C [address] [place] [address] PCP - General Med/Peds 06/28/20 07/15/21 Dileep Peterson MD [address] [place] [address] PCP - General Internal Medicine 07/16/21 01/22/23 [facility], Pcp [address] [place] [address] PCP - General Internal Medicine 01/23/23 documented as of this encounter
--- OUTSIDE RECORDS SUMMARY | 2024-05-12 09:26 | XMS_ITS | Encounter Summary ---
Author Organization [facility] Address [address] [place] [address] Care Team Providers Care Adoption Services Manager Name Role Phone Jin Trevino MD Primary Care Provider [phone] [facility], Pcp Primary Care Provider Ulices e Clyde Maher PA-C Primary Care Provider Unavail able Dileep Peterson MD Primary Care Provider [phone] [facility], Pcp Primary Care Provider Unavailshaun e Encounter Details Date Type Department Care Team Description 02/15/2015 Cover Machine Operator Report Medical Records [address] [place] [address] [address] Social History Tobacco Use Types Packs/Day Years [...] on filedocumented in this encounter Care Teams Adoption Services Manager Relationship Specialty Start Date End Date Jin Trevino MD [address] [place] [address] PCP - General Internal Medicine 09/01/14 07/11/19 [facility], Pcp [address] [place] [address] PCP - General Internal Medicine 07/12/19 06/27/20 Clyde Maher PA-C [address] [place] [address] PCP - General Med/Peds 06/28/20 07/15/21 Dileep Peterson MD [address] [place] [address] PCP - General Internal Medicine 07/16/21 01/22/23 [facility], [address] [address] PCP - General Internal Medicine 01/23/23 documented as of this encounter
--- OUTSIDE RECORDS SUMMARY | 2024-05-12 09:26 | XMS_ITS | Encounter Summary ---
Author Organization [facility] Address [address] [place] [address] Care Team Providers Care Kayaking Instructor Name Role Phone Dileep Peterson MD Primary Care Provider [phone] [facility], Pcp Primary Care Provider Unavailabl e Encounter Details Date Type Department Care Team Description 07/01/2022 Orders Only Adult Medicine A [address] [address] Vandana Clark APRN [address] [place] [address] Diabetes mellitus type 2 with neurological manifestations (HCC) Social History Tobacco Use Types Packs/Day Years [...] suspected to have Coronavirus/COVID-19? No / Unsure 06/28/2022 10:58 AM EDT documented as of this encounter Plan of Treatment Not on file documented as of this encounter Visit Diagnoses Diagnosis Diabetes mellitus type 2 with neurological manifestations (HCC) Type II or unspecified type diabetes mellitus with neurological manifestations, not stated as uncontrolled documented in this encounter Care Teams Kayaking Instructor Relationship Specialty Start Date End Date Dileep Peterson MD [address] [place] [address] PCP - General Internal Medicine 07/16/21 01/22/23 [facility], Pcp [address] [place] [address] PCP - General Internal Medicine 01/23/23 documented as of this encounter
--- OUTSIDE RECORDS SUMMARY | 2024-05-12 09:26 | XMS_ITS | Encounter Summary ---
Author Organization [facility] Address [address] [place] [address] Care Team Providers Care Bag Loader Name Role Phone Jin Trevino MD Primary Care Provider [phone] [facility], Pcp Primary Care Provider Unavailabl e Clyde Maher PA-C Primary Care Provider Unavail able Dileep Peterson MD Primary Care Provider [phone] [facility], Pcp Primary Care Provider Unavailabl e Reason for Visit * Reason Onset Date Comments Pre-visit Diabetes Lab Adult Medicine 11/06/201511/19 Encounter Details Date Type Department Care Team Description 11/06/2015 Telephone Adult Medicine B - [address] [address] Jin Trevino MD [address] [place] [address] Pre-visit Diabetes Lab Adult Medicine (11/19) Social History Tobacco Use Types Packs/Day Years [...] encounter Miscellaneous Notes * Telephone Encounter - Latoya Whitfield - 11/06/2015 11:14 AM EDT Spoke with patient advised to complete previsit lab work prior to appointment. The lab work does not need to be fasting lab work. Patient states that they will complete prior to their appointment. Patient verbally understanding. documented in this encounter Plan of Treatment Not on file documented as of this encounter Visit Diagnoses Not on filedocumented in this encounter Care Teams Bag Loader Relationship Specialty Start Date End Date Jin Trevino MD [address] [place] [address] PCP - General Internal Medicine 09/01/14 07/11/19 [facility], Pcp [address] [place] [address] PCP - General Internal Medicine 07/12/19 06/27/20 Clyde Maher PA-C [address] [place] [address] PCP - General Med/Peds 06/28/20 07/15/21 Dileep Peterson MD [address] [place] [address] PCP - General Internal Medicine 07/16/21 01/22/23 [facility], Pcp [address] [place] [address] PCP - General Internal Medicine 01/23/23 documented as of this encounter
--- OUTSIDE RECORDS SUMMARY | 2024-05-12 09:26 | XMS_ITS | Encounter Summary ---
Author Organization [facility] Address [address] [place] [address] Care Team Providers Care Airconditioning Drafting Officer Name Role Phone Jin Trevino MD Primary Care Provider [phone] [facility], Pcp Primary Care Provider Unavailabl e Clyde Maher PA-C Primary Care Provider Unavail able Dileep Peterson MD Primary Care Provider [phone] [facility], Pcp Primary Care Provider Unavailabl e Reason for Visit * Reason Onset Date Comments medication problems 06/10/2017 Encounter Details Date Type Department Care Team Description 06/10/2017 Telephone Adult Medicine B - [address] [address] Jin Trevino MD [address] [place] [address] medication problems Social History Tobacco Use Types [...] encounter Miscellaneous Notes * Telephone Encounter - NANETTE Thakur - 06/10/2017 10:43 AM EDT Ordered * Telephone Encounter - Paula Jimenez M.A. - 06/10/2017 10:11 AM EDT One touch is no longer covered by the pt's insurance. They will cover freestyle. Rx pended . Thank you Date of last office visit was 04/17/17 Lab Results Component Value Date HGBA1C 7.8 01/21/2017 MALBUR 22.7 01/22/2017 MALBCR 8.6 01/22/2017 CHOL 176 01/21/2017 LDL 121 01/21/2017 HDL 33 01/21/2017 TRIG 112 01/21/2017 GLU 142 01/21/2017 CREAT 0.8 01/21/2017 * Telephone Encounter - Magan Baltazar - 06/10/2017 10:00 AM EDT Who is calling? A pharmacist: Pharmacy: [facility] Pharmacy Name of the medication ONE TOUCH ULTRA TEST STRIPS strip What is the specific problem or interaction? Not covered by insurance, will cover Freestyle or Precision If the patient is having a problem with taking the med - how long has the problem been going on? N/A documented in this encounter Plan of Treatment Not on file documented as of this encounter Visit Diagnoses Not on filedocumented in this encounter Care Teams Airconditioning Drafting Officer Relationship Specialty Start Date End Date Jin Trevino MD [address] [place] [address] PCP - General Internal Medicine 09/01/14 07/11/19 [facility], Pcp [address] [place] [address] PCP - General Internal Medicine 07/12/19 06/27/20 Clyde Maher PA-C [address] [place] [address] PCP - General Med/Peds 06/28/20 07/15/21 Dileep Peterson MD [address] [place] [address] PCP - General Internal Medicine 07/16/21 01/22/23 [facility], Pcp [address] [place] [address] PCP - General Internal Medicine 01/23/23 documented as of this encounter
--- OUTSIDE RECORDS SUMMARY | 2024-05-12 09:26 | XMS_ITS | Clinical Summary ---
Author Organization [facility] Address [address] [place] [address] Care Team Providers Care Lab Technician Name Role Phone Unavailable Primary Care Provider Unavailabl e Source Comments PLEASE NOTE, if this patient is a minor, it may be UNLAWFUL to discuss sensitive information that is contained in these records (such as FAMILY PLANNING, MENTAL HEALTH or SUBSTANCE ABUSE) with the minor patient's parent or other person without the patient's specific authorization.[facility] Allergies Active Allergy Reactions Criticality Noted Date Comments Carbamazepine High 04/12/2014 Loss white cells Dulaglutide 02/26/2019 Itching no anaphylaxis. Medications blood-glucose meter monitoring kitIndications:Type 2 diabetes mellitus without complication, without long-term current use of insulin ([facility]) Use to check blood sugar twice a day. DX-E11.49. NIDDM 6 Active SITagliptin-metform in (JANUMET) 50-1,000 mg per tabletIndications:T ype 2 diabetes mellitus with other specified complication, unspecified whether buttermaker helper insulin use ([facility]) Take 1 Tablet by mouth 2 (two) times daily with a meal DXE11.69Pl sarai on hold 180 Tablet 1 Active insulin glargine (LANTUS SOLOSTAR U-100 INSULIN) 100 unit/mL (3 mL)Indications:Type 2 diabetes mellitus with other specified complication, unspecified whether buttermaker helper insulin use ([facility]) Inject 30 Units into the skin nightly at bedtime APPT required for further refills DXE11.69 9 mL 1 1 Active lisinopriL 2.5 mg tabletIndications:T ype 2 diabetes mellitus without complication, without long-term current use of insulin ([facility]) Take 1 Tab by mouth every morning 90 Tablet 1 2 Active BD ULTRA-FINE RONA PEN NEEDLE 32 gauge x 32 ndleIndications:Typ e 2 diabetes mellitus with other specified complication, unspecified whether assisted insulin use ([facility]) Use to inject insulin 1 TIME A DAY DIRECTED.DXE 11.69 100 Each 2 Active topiramate (TOPAMAX) 100 mg tabletIndications:S eizure disorder ([facility]) Take 1 Tab by mouth 2 (two) times daily 180 Tablet 1 2 Active atorvastatin (LIPITOR) 40 mg tabletIndications:M ixed hyperlipidemia Take 1 Tab by mouth nightly at bedtime 90 Tablet 1 2 Active OLANZapine (ZYPREXA) 2.5 mg tabletIndications:N ightmares TAKE ONE TABLET BY MOUTH EVERY DAY AT BEDTIME 90 Tablet 1 2 Active acetaminophen (TYLENOL) 500 mg tabletIndications:C manuel of pulp Take 1 Tablet by mouth every 6 (six) hours as needed for pain 20 Tablet 3 Active clindamycin (CLEOCIN) 150 mg capsuleIndications: Caries of pulp Take 1 Capsule by mouth 3 (three) times daily 21 Capsule 3 Active Active Problems Problem Noted Date Diagnosed Date Right-sided chest wall pain 09/01/2019 Delusional disorder, mixed t ype, with bizarre content ([facility]) 05/27/2019 Type 2 diabetes mellitus wit hout complication, without long-term current use of insulin ([facility]) 03/19/2019 Mixed hyperlipidemia 03/19/2019 Elevated liver function tests 04/24/2018 Polyneuropathy 06/05/2017 Type 2 diabetes mellitus wit h neurological manifestations ([facility]) 04/17/2017 Brief reactive psychosis ([facility]) 03/27/2017 Morbid obesity with body mas s index of 45.0-49.9 in adult ([facility]) 03/11/2017 Obstructive sleep apnea 11/15/2016 Overview (02/26/2019): [facility] Home Polysomnogram: Date 11/08/2016; AHI 94, [...] 93%. For the entire study, PLMs ~4. History of hydrocephalus as a child 11/02/2015 Overview (02/26/2019): CT head 2011 shows break in the ventricular catheter at the level of the calvarium Pure hypercholesterolemia 06/01/2015 Chronic ankle pain 05/30/2015 Abnormal thyroid exam 11/10/2014 Seizure disorder ([facility]) 04/12/2014 Nightmares 04/12/2014 Immunizations Name Administration Dates Next Due Flu, Preservative Free 02/26/2019 Moderna COVID-19 Vaccine, re d cap blue label, 12+ Primary Series 06/09/2020,05/12/2020 TDAP 10/26/2014 Family History Medical History Relation Name Comments Diabetes Father Relation Name Status Comments Brother Alive Father Maternal Grandfather Maternal Grandmother Mother Alive Paternal Grandfather Paternal Grandmother Social History Tobacco Use Types Packs/Day Years Used Date Smoking Tobacco: Former Smokeless Tobacco: Former Alcohol Use Standard Drinks/Week Comments Not Currently 0 (1 standard drink = 0.6 oz pur e alcohol) Social Connections Answer Date Recorded Connectedness 0 11/26/2023 Financial Resource Strain Answer Date R ecorded Financial Resource Strain 0 2018 Stress Answer Date Recorded Stress 0 02/26/2019 Physical Activity Answer Date Recorded Physical Activity 0 02/26/2019 Food Insecurity Answer Date Recorded Food 0 12/04/2023 Transportation Needs Answer Date Record ed Transportation 0 02/26/2019 Housing Stability Answer Date Recorded Housing 0 02/26/2019 Safety and Environment Answer Date Tristan rded Safety 0 02/26/2019 Utilities Answer Date Recorded Utilities 0 02/26/2019 Employment Answer Date Recorded Stress 0 11/26/2023 Sex and Gender Information Value Date Recorded Sex Assigned at Male 03/01/2019 8:01 AM PST Legal Sex Male 11:36 AM PDT Gender Identity Male 03/01/2019 8:01 AM PST Sexual Orientation Straight 03/01/2019 8: 01 AM PST Last Filed Vital Signs Vital Sign Reading Time Taken Comments Blood Pressure 117/63 06/21/2022 2:57 PM EDT Pulse 97 06/21/2022 2:57 PM EDT Temperature 36.3 ??C (97.3 ??F) 05/12/2019 1:25 PM ES T Respiratory Rate 18 05/12/2019 1:25 PM EST Oxygen Saturation 95% 03/19/2019 9:45 AM EST Inhaled Oxygen Concentration - - Weight 147.9 kg (326 lb) 05/12/2019 1:25 PM EST Height 180.3 cm (5' 11 ) 05/12/2019 1:25 PM EST Body Mass Index 45.47 05/12/2019 1:25 PM EST Plan of Treatment Health Maintenance Due Date Last Done Comments Hepatitis C Screening 1970 Tobacco Screening 1970 Retinopathy Screening 06/12/1983 HIV Screening 1985 Imm-Hepatitis B (1 of 3 - 19 + 3-dose series) 1989 CT Colonography 06/12/2015 Colonoscopy 06/12/2015 Colorectal Cancer Screening 06/12/2015 FIT/gFOBT 06/12/2015 Fecal DNA 06/12/2015 Flexible Sigmoidoscopy 06/12/2015 Dental Examination 02/04/2020 02/01/2019 Diabetes Microalbumin (w/Creatinine) 02/27/202002/08 Lipid Screening 02/27/2020 02/26/2019, 12/04/2018 Serum Creatinine 02/27/2020 02/26/2019, 12/04/2018 Annual Preventive Care Visit 03/19/2020 03/19/2019 Diabetes HbA1c 04/29/2020 01/28/2020, 02/08, 12/04/2018 Imm-Zoster, Recombinant (1 of 2) 2020 Diabetes Foot Exam 09/29/2020 09/30/2019 Imm-Pneumococcal (2 of 2 - PCV) 08/13/2022 Hypertension Screening (#1) 06/21/2023 [id number] ( season) 2023 01/24/2021, 06/09/2020, 05/12/2020 Imm-Influenza (#1) 2023 05/19/2020, 02/26/2019 Alcohol and Drug Screen 03/10/2024 02/26/2019 Depression Annual Screen 03/10/2024 05/11/2019 Imm-DTaP/Tdap/Td (2 - Td or Tdap) 10/26/2024 015 Procedures Procedure Name Priority Date/Time Associated Diagnosis Comments HEMOGLOBIN GLYCOSYLATED A1C Routine 01/28/2020 9:42 AM EST Type 2 diabetes mellitus with other specified complication, unspecified whether assisted insulin use ([facility]) REFERRAL TO PODIATRY Routine 09/30/2019 12:00 AM EDT Type 2 diabetes mellitus with other specified complication, unspecified whether buttermaker helper insulin use ([facility]) COMPREHENSIVE METABOLIC PANEL Routine 02/26/2019 3:52 PM EST Elevated liver function tests LIPID PANEL Routine 02/26/2019 3:52 PM EST Pure hypercholesterolemia MICROALBUMIN/CREATI NINE RATIO, URINE, RANDOM Routine 02/26/2019 3:48 PM EST Type 2 diabetes mellitus with neurological manifestations ([facility]) from Last 3 Months or Most Recently Relevant to Health Maintenance Results * (ABNORMAL) HEMOGLOBIN, GLYCOSYLATED (A1C) (01/28/2020 9:42 AM EST) GLYCATED HEMOGLOBIN A1C 7.4(H) <6.5 % [facility] ESTIMATED AVERAGE GLUCOSE 166 mg/dL [facility] 01/28/2020 9:42 AM EST 01/28/2020 3:47 PM EST Narrative [facility] - 01/28/2020 7:51 PM EST [facility], [place] [address] Commission Auditor [place] [id number] ORD# [id number] us [facility] Provider Default LAB - BLOOD DRAW Final Res ult Performing Organization Address [facility]/ZIP Co de Phone Number [facility] [address] [place] [address], * REFERRAL TO PODIATRY (09/30/2019 12:00 AM EDT) 09/30/2019 Luz Hopper PharmD REFERRAL Final Resul t * (ABNORMAL) LIPID PANEL (02/26/2019 3:52 PM EST) CHOLESTEROL 125 0 - 200 mg/dL [facility] TRIGLYCERIDES 162(H) 0 - 150 mg/dL [facility] HDL CHOLESTEROL 27(L) >40 mg/dL [facility] LDL CALCULATED 66 0 - 100 mg/dL [facility] TC-HDLC RATIO 4.6(H) 0 - 4.4 mg/dL [facility] Blood specimen (specimen) Blood / Unknown 02/26/2019 3:52 PM EST 02/26/2019 4:12 PM EST Narrative [facility] - 02/26/2019 6:[address] [facility], a member of [address] [address] Commission Auditor [place] [id number] ORD# [id number] Yong Alvarez PA-C, [facility] LAB - BLOOD DRAW Edited Result - Final [facility] [address] [place] [address], * (ABNORMAL) COMPRE METAB PANEL (02/26/2019 3:52 PM EST) GLUCOSE 264(H) 70 - 100 mg/dL [facility] Comment:Reference range appl icable to fasting specimens only BUN 15 5 - 25 mg/dL [facility] CREAT 0.86 0.7 - 1.3 mg/dL [facility] GLOMERULAR FILTRATION RATE > 60 [facility] Comment: If patient is -Dutch, multiply result by 1.21 Chronic Kidney Disease: < 60 ml/min/1.73 square meters Kidney Failure: < 15 ml/min/1.73 square meters SODIUM 136 135 - 145 mEq/L [facility] POTASSIUM 4.0 3.5 - 5.5 mmol/L [facility] CHLORIDE 101 96 - 110 mmol/L [facility] CO2 30 21 - 32 mmol/L [facility] ANION GAP 5 3 - 11 [facility] CALCIUM 9.0 8.5 - 10.5 mg/dL [facility] TOTAL PROTEIN 7.8 6.0 - 8.0 G/dL [facility] ALBUMIN 3.5 3.2 - 5.0 G/dL [facility] BILI, TOTAL 0.6 0.0 - 1.4 mg/dL [facility] SGOT 55(H) 10 - 42 U/L [facility] SGPT 61(H) 10 - 60 U/L [facility] ALK PHOS 143(H) 42 - 121 U/L [facility] Blood specimen (specimen) Blood / Unknown 02/26/2019 3:52 PM EST 02/26/2019 4:12 PM EST Narrative [facility] - 02/26/2019 6:[address] [facility], [place] [address] Commission [place]itor [place] [id number] ORD# [id number] Yong Alvarez PA-C, [facility] LAB - BLOOD DRAW [place] [address], * MICROALBUMIN/CREATININE RATIO, URINE, RANDOM (02/26/2019 3:48 PM EST) CREATININE, RANDOM URINE 191 mg/dL [facility] MICROALBUMIN, RANDOM 24.6 0.0 - 29.0 mg/L [facility] MICROALB/CRE RATIO RANDOM 12.8 0.0 - 30.0 mg/G [facility] Urine specimen (specimen) Urine specimen / Unknown 02/26/2019 3:48 PM EST 02/26/2019 4:12 PM EST Narrative [facility] - 02/26/2019 7:12 PM EST [facility], [place] [address] Commission Auditor [place] [id number] ORD# [id number] Yong Alvarez PA-C, [facility] LAB - NO BLOOD DRAW Edit ed Result - Final [address] [address], from Last 3 Months or Most Recently Relevant to Health Maintenance Insurance [employer] [facility]
--- OUTSIDE RECORDS SUMMARY | 2024-05-12 09:26 | XMS_ITS | Encounter Summary ---
Author Organization [facility] Address [address] [place] [address] Care Team Providers Care Digital Service Engineer Name Role Phone Jin Trevino MD Primary Care Provider [phone] [facility], Pcp Primary Care Provider Unavailabl e Clyde Maher PA-C Primary Care Provider Unavail able Dileep ePterson MD Primary Care Provider [phone] [facility], Pcp Primary Care Provider Unavailabl e Reason for Visit * Reason Onset Date Comments refill request 06/29/2019 Encounter Details Date Type Department Care Team Description 06/29/2019 Refill Adult Medicine [address] [address] Jin Trevino MD [address] [place] [id number] refill request Social History Tobacco Use Types [...] encounter Miscellaneous Notes * Telephone Encounter - Kiana Hernandez M.A. - 07/05/2019 9:42 AM EDT Reached patient who is no longer with this practice, fyi to Dr. Trevino * Telephone Encounter - Kiana Hernandez M.A. - 07/02/2019 9:53 AM EDT 2nd message left. Please make audio visit * Telephone Encounter - Kiana Hernandez M.A. - 06/29/2019 4:37 PM EDT Patient needs appt. Left message to patient to call office back, I am at extension [phone] * Telephone Encounter - Kristine Eaton - 06/29/2019 2:43 PM EDT Patient would like script to be: E-PRESCRIBED/FAXED TO PHARMACY WHEN WAS THE PATIENT'S LAST APPOINTMENT IN ADULT MEDICINE? 01/20/19 WHEN WAS THE LAST TIME THE PATIENT SAW THEIR PCP? 12/04/18 Does patient have an upcoming appointment? No-patient refused appointment, will call back to book appointment (THE MEDICATION REQUESTED IS ON THE MED [...] Payor: [employer] / Plan: [employer] HMO F 1+/$0 / Product Type: [id number] documented in this encounter Plan of Treatment Not on file documented as of this encounter Visit Diagnoses Not on filedocumented in this encounter Care Teams Digital Service Engineer Relationship Specialty Start Date End Date Jin Trevino MD [address] [place] [address] PCP - General Internal Medicine 09/01/14 07/11/19 [facility], Pcp [address] [place] [address] PCP - General Internal Medicine 07/12/19 06/27/20 Clyde Maher PA-C [address] [place] [address] PCP - General Med/Peds 06/28/20 07/15/21 Dileep Peterson MD [address] [place] [address] PCP - General Internal Medicine 07/16/21 01/22/23 [facility], Pcp [address] [place] [address] PCP - General Internal Medicine 01/23/23 documented as of this encounter
== END 2024-05-12 09:10 | disposition home or self-care (01) ==
PROVIDERS: Visit Provider Internal Medicine
DX: E11.9 Type 2 diabetes mellitus without complications (principal); E66.01 Morbid (severe) obesity due to excess calories; Z79.4 Long term (current) use of insulin; Z68.42 Body mass index [BMI] 45.0-49.9, adult; R79.89 Other specified abnormal findings of blood chemistry; F99 Mental disorder, not otherwise specified; E78.9 Disorder of lipoprotein metabolism, unspecified; R26.81 Unsteadiness on feet; M25.572 Pain in left ankle and joints of left foot; G89.29 Other chronic pain; Z87.81 Personal history of (healed) traumatic fracture

== ENCOUNTER → 2024-05-12 08:44 | Outpatient (BNVA) | payer OTHER, SELFPAY | PROVIDERS: Visit Provider Internal Medicine | DX: R79.89 Other specified abnormal findings of blood chemistry (principal); F99 Mental disorder, not otherwise specified; E78.9 Disorder of lipoprotein metabolism, unspecified; E66.01 Morbid (severe) obesity due to excess calories; E11.9 Type 2 diabetes mellitus without complications; R26.81 Unsteadiness on feet; M25.572 Pain in left ankle and joints of left foot; G89.29 Other chronic pain; Z87.81 Personal history of (healed) traumatic fracture; Z79.4 Long term (current) use of insulin | CPT/HCPCS: 83036; 96127; 99212 ==

== ENCOUNTER 2024-05-13 08:39 | Outpatient (REF) | payer OTHER, SELFPAY ==
--- OUTSIDE RECORDS SUMMARY | 2024-05-13 09:10 | XMS_ITS | Clinical Summary ---
Author Organization [facility] [address] [place] [address] [place] [phone] Phone Care Team Providers Care Wind Up Worker Name Role Phone Dileep Peterson MD Primary Care Provider [phone] Allergies Active Allergy Reactions Criticality Noted Date [...] pen needle, diabetic (Lite Touch Insulin Pen [employer]ney) 29 gauge x 1/2 needle Used with [...] 03/27/2017 Obstructive sleep apnea 11/15/2016 Overview (12/18/2023): [facility] Home Polysomnogram: Date 11/08/2016; AHI 94, Unclassified apneas 1; Obstructive apneas 248; Central apneas 5; Mixed apneas 0; hypopneas 177; average oxygen saturation 91% (lowest 75% with saturations <88% for 21% of study) [facility] [place]ysomnogram treatment study. Date 02/16/2017 . [...] Date Site/Laterality Comments OTHER SURGICAL HISTORY PROCEDURE: GA REPAIR PRIMARY OPEN/PRQ RUPTURED ACHILLES TENDON COLONOSCOPY 03/13/2015 PROCEDURE: HISTORICAL COLONOSCOPY; COMMENT: [facility] - sigmoid tics, internal hems; o/w normal to TI ANKLE SURGERY 2014 PROCEDURE: HISTORICAL ANKLE SURGERY Medical History Medical History Date Comments Seizure disorder ([facility]) 04/12/2014 DX:Se izure disorder ([facility]) Morbid obesity with BMI of 4 5.0-49.9, adult (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) 03/27/2017 DX:Brief reactive psychosis ([facility]) Chronic ankle pain 05/30/2015 DX:Chronic an kle [...] Results * Urine Albumin Creatinine Ratio (07/17/2023) [facility] Urine Albumin Creatinine Ratio Abstracted Result [facility] Provider HEALTH MAINTENANCE Final Result * Annual BMP Blood Test (07/17/2023) [facility] Annual BMP Blood Test Abstracted Result [facility] Provider HEALTH MAINTENANCE Final Result * (ABNORMAL) Hemoglobin A1c (07/17/2023) [facility] Hemoglobin A1C 11.5(A) <=6.5 % Blood Venous blood specimen / Unknown Result [facility] Provider LAB BLOOD ORDERABLES Lazara l Result * (ABNORMAL) Lipid panel (07/17/2023) [facility] LDL/HDL Ratio 5(A) 0 - 4 Triglycerides 201(A) 0 - 150 mg/dL Cholesterol 130 0 - 200 mg/dL HDL 27(A) >=40 mg/dL LDL Cholesterol 63 0 - 100 mg/dL Blood Venous blood specimen / Unknown Result [facility] Provider LAB BLOOD ORDERABLES Lazara l Result * Hepatitis C Screening (12/28/2021) [facility] Hepatitis C Screening Abstracted Result [facility] Provider HEALTH MAINTENANCE Final Result * Colonoscopy (03/13/2015) [facility] Colonoscopy No Interpretation , Abstracted Anatomical Region Laterality Modality Other Result [facility] Provider HEALTH MAINTENANCE Final Result from Last 3 Months or Most Recently Relevant to Health Maintenance Insurance [facility] Care Teams Wind Up Worker Relationship Specialty Start Date End Date Dileep Peterson MD [address] [facility] [place] [address] PCP - General Internal Medicine 07/16/21
--- OUTSIDE RECORDS SUMMARY | 2024-05-13 09:10 | XMS_ITS | Patient Health Record ---
Author Organization [facility] Address [address] [facility] [place] [id number] Care Team Providers Care Security Controls Assessor Name Role Phone No, PCP Primary Care Provider Miriam Smith Unavailable [phone] Allergies Allergen (clinical drug ingredient) Drug/Non Drug [...] Start Date Coverage End Date Health Safety [facility] [employer] [address] [place] [address] [id number] Luis Antonio Arita Self - patient is the insured 2 Medical (General) History Medical History History ICD Code Diabetes type II Epilepsy / Seizures Hydrocephalus at L ankle surgery (6 pins placed, broken a nkle)
--- OUTSIDE RECORDS SUMMARY | 2024-05-13 09:10 | XMS_ITS | Clinical Summary ---
Author Organization [facility] Address [address] [place] [address] Care Team Providers Care Payment Manager Name Role Phone Unavailable Primary Care Provider [...] complication, without long-term current use of insulin ([facility]) Use to check blood sugar twice a day. DX-E11.49. NIDDM 6 Active SITagliptin-metform in (JANUMET) 50-1,000 mg per tabletIndications:T ype 2 diabetes mellitus with other specified complication, unspecified whether assembler steam and gas turbine insulin use ([facility]) Take 1 Tablet by mouth 2 (two) times daily with a meal DXE11.69Pl sarai on hold 180 Tablet 1 Active insulin glargine (LANTUS SOLOSTAR U-100 INSULIN) 100 unit/mL (3 mL)Indications:Type 2 diabetes mellitus with other specified complication, unspecified whether assembler steam and gas turbine insulin use ([facility]) Inject 30 Units into the skin nightly at bedtime APPT required for further refills DXE11.69 9 mL 1 1 Active lisinopriL 2.5 mg tabletIndications:T ype 2 diabetes mellitus without complication, without long-term current use of insulin ([facility]) Take 1 Tab by mouth every morning 90 Tablet 1 2 Active BD ULTRA-FINE RONA PEN NEEDLE 32 gauge x 32 ndleIndications:Typ e 2 diabetes mellitus with other specified complication, unspecified whether senior care insulin use ([facility]) Use to inject insulin 1 TIME A DAY DIRECTED.DXE 11.69 100 Each 2 Active topiramate (TOPAMAX) 100 mg tabletIndications:S eizure disorder ([facility]) Take 1 Tab by mouth 2 [...] disorder, mixed t ype, with bizarre content ([facility]) 05/27/2019 Type 2 diabetes mellitus wit hout complication, without long-term current use of insulin ([facility]) 03/19/2019 Mixed hyperlipidemia 03/19/2019 Elevated liver function tests 04/24/2018 Polyneuropathy 06/05/2017 Type 2 diabetes mellitus wit h neurological manifestations ([facility]) 04/17/2017 Brief reactive psychosis ([facility]) 03/27/2017 Morbid obesity with body mas s index of 45.0-49.9 in adult ([facility]) 03/11/2017 Obstructive sleep apnea 11/15/2016 Overview (02/26/2019): [facility] Home Polysomnogram: Date 11/08/2016; AHI 94, Unclassified [...] 05/30/2015 Abnormal thyroid exam 11/10/2014 Seizure disorder ([facility]) 04/12/2014 Nightmares 04/12/2014 Immunizations Name Administration Dates [...] - PCV) 08/13/2022 Hypertension Screening (#1) 06/21/2023 [id number] ( season) 2023 01/24/2021, 06/09/2020, 05/12/2020 Imm-Influenza (#1) 2023 05/19/2020, 02/26/2019 Alcohol and Drug Screen 03/10/2024 02/26/2019 Depression Annual Screen 03/10/2024 05/11/2019 Imm-DTaP/Tdap/Td (2 - Td or Tdap) 10/26/2024 015 Procedures Procedure Name Priority Date/Time Associated Diagnosis Comments HEMOGLOBIN GLYCOSYLATED A1C Routine 01/28/2020 9:42 AM EST Type 2 diabetes mellitus with other specified complication, unspecified whether senior care insulin use ([facility]) REFERRAL TO PODIATRY Routine 09/30/2019 12:00 AM EDT Type 2 diabetes mellitus with other specified complication, unspecified whether assembler steam and gas turbine insulin use ([facility]) COMPREHENSIVE METABOLIC PANEL Routine 02/26/2019 3:52 PM EST Elevated liver function tests LIPID PANEL Routine 02/26/2019 3:52 PM EST Pure hypercholesterolemia MICROALBUMIN/CREATI NINE RATIO, URINE, RANDOM Routine 02/26/2019 3:48 PM EST Type 2 diabetes mellitus with neurological manifestations ([facility]) from Last 3 Months or Most Recently Relevant to Health Maintenance Results * (ABNORMAL) HEMOGLOBIN, GLYCOSYLATED (A1C) (01/28/2020 9:42 AM EST) GLYCATED HEMOGLOBIN A1C 7.4(H) <6.5 % [facility] EST[facility] AVERAGE GLUCOSE 166 mg/dL [facility] 01/28/2020 9:42 AM EST 01/28/2020 3:47 PM EST Narrative [facility] - 01/28/2020 7:51 PM EST [employer], [place] [address] College Admissions [place] [id number] ORD# [id number] us [facility] Provider Default LAB - BLOOD DRAW Final Res ult Performing Organization Address [facility]/ZIP Co de Phone Number [facility] [address] [place] [address], * REFERRAL TO PODIATRY (09/30/2019 12:00 AM EDT) 09/30/2019 Luz Hopper PharmD REFERRAL Final Resul t * (ABNORMAL) LIPID PANEL (02/26/2019 3:52 PM EST) CHOLESTEROL 125 0 - 200 mg/dL [facility] TRIGLYCERIDES 162(H) 0 - 150 mg/dL [facility] HDL CHOLESTEROL 27(L) >40 mg/dL [facility] LDL CALCULATED 66 0 - 100 mg/dL [facility] TC-HDLC RATIO 4.6(H) 0 - 4.4 mg/dL [facility] Blood specimen (specimen) Blood / Unknown 02/26/2019 3:52 PM EST 02/26/2019 4:12 PM EST Narrative [facility] - 02/26/2019 6:50 PM EST [employer], a member of [address] [address] College Admissions [place] [id number] ORD# [id number] Yong Alvarez PA-C, [facility] LAB - BLOOD DRAW Edited Result - Final [facility] [address] [place] [address], * (ABNORMAL) COMPRE METAB PANEL (02/26/2019 3:52 PM EST) GLUCOSE 264(H) 70 - 100 mg/dL [facility] Comment:Reference range appl icable to fasting specimens only BUN 15 5 - 25 mg/dL [facility] CREAT 0.86 0.7 - 1.3 mg/dL [facility] GLOMERULAR FILTRATION RATE > 60 [facility] Comment: If patient is -Malawian, multiply result by 1.21 Chronic Kidney Disease: < 60 ml/min/1.73 square meters Kidney Failure: < 15 ml/min/1.73 square meters SODIUM 136 135 - 145 mEq/L [facility] POTASSIUM 4.0 3.5 - 5.5 mmol/L [facility] CHLORIDE 101 96 - 110 mmol/L [facility] CO2 30 21 - 32 mmol/L [facility] ANION GAP 5 3 - 11 [facility] CALCIUM 9.0 8.5 - 10.5 mg/dL [facility] TOTAL PROTEIN 7.8 6.0 - 8.0 G/dL [facility] ALBUMIN 3.5 3.2 - 5.0 G/dL [facility] BILI, TOTAL 0.6 0.0 - 1.4 mg/dL [facility] SGOT 55(H) 10 - 42 U/L [facility] SGPT 61(H) 10 - 60 U/L [facility] ALK PHOS 143(H) 42 - 121 U/L [facility] Blood specimen (specimen) Blood / Unknown 02/26/2019 3:52 PM EST 02/26/2019 4:12 PM EST Narrative [facility] - 02/26/2019 6:50 PM EST [employer], [place] [address] College Admissions [place] [id number] ORD# [id number] Yong Alvarez PA-C, [facility] - BLOOD DRAW Edited [place] - [place] [address], * MICROALBUMIN/CREATININE RATIO, URINE, RANDOM (02/26/2019 3:48 PM EST) CREATININE, RANDOM URINE 191 mg/dL [facility] MICROALBUMIN, RANDOM 24.6 0.0 - 29.0 mg/L [facility] MICROALB/CRE RATIO RANDOM 12.8 0.0 - 30.0 mg/G [facility] Urine specimen (specimen) Urine specimen / Unknown 02/26/2019 3:48 PM EST 02/26/2019 4:12 PM EST Narrative [facility] - 02/26/2019 7:12 PM EST [employer], [place] [address] College Admissions [place] [id number] ORD# [id number] Yong Alvarez PA-C, [facility] - NO BLOOD DRAW Edit ed Result - Final [address] [address], from Last 3 Months or Most Recently Relevant to Health Maintenance Insurance [employer] [facility]
[2024-05-13 10:41] LABS: MANUAL DIFF FLAG NO
[2024-05-13 10:54] LABS: Basophils Absolute Auto 0.1 X10*3/uL (0.0-0.2); Basophils Percent Auto 0.6 % (0-2); Eosinophils Absolute Auto 0.3 X10*3/uL (0.0-0.4); Eosinophils Percent Auto 3.4 % (0-4); Hematocrit 39.8 % (42.0-52.0); Hemoglobin 12.6 g/dl (14.0-18.0); Imm Gran Abs Auto 0.08 X10*3/uL (0.00-0.03); Lymphocytes Absolute Auto 1.3 X10*3/uL (1.2-4.9); Lymphocytes Percent Auto 15.7 % (20-40); Mean Corpuscular HGB Conc 31.7 g/dl (31.0-36.0); Mean Corpuscular Hemoglobin 29.2 pg (27.0-33.0); Mean Corpuscular Volume 92.3 fL (80.0-98.0); Mean Platelet Volume 9.5 fL (9.4-12.4); Monocytes Absolute Auto 0.6 X10*3/uL (0.1-1.2); Monocytes Percent Auto 6.6 % (2-11); Neutrophils Percent Auto 72.7 % (45-73); Platelet Count 229 X10*3/uL (160-400); Red Blood Count 4.31 X10*6/uL (4.60-5.80); Red Cell Distribution Width 14.9 % (11.0-16.0); White Blood Count 8.3 X10*3/uL (4.8-10.8)
[2024-05-13 11:15] LABS: Alanine Aminotransferase 48 U/L (0-40); Albumin Level 3.8 g/dL (3.5-5.0); Alkaline Phosphatase 120 U/L (39-117); Anion Gap 12 (12-20); Aspartate Amino Transferase 49 U/L (5-37); Bilirubin Total 0.3 mg/dL (0.0-1.0); Blood Urea Nitrogen 11 mg/dL (9-16); Calcium 8.7 mg/dL (8.4-10.2); Carbon Dioxide 25 mmol/L (22-29); Chloride 106 mmol/L (96-108); Estimated Glomerular Filt Rate > 60; Glucose Random 282 mg/dL (60-115); Potassium 3.7 mmol/L (3.3-5.1); Sodium 139 mmol/L (135-145); Total Protein 7.5 g/dL (6.5-8.0)
[2024-05-13 11:35] LABS: TSH reflex Free T4 5.28 uIU/mL (0.32-4.0)
[2024-05-13 12:09] LABS: Free T4 (Free Thyroxine) 0.91 ng/dL (0.71-1.85)
[2024-05-14 17:18] LABS: LDL Cholesterol Direct 61 mg/dL (<100)
== END 2024-05-13 08:40 | disposition home or self-care (01) ==
LOC: HO.HMGCX 08:39
PROVIDERS: PCP Internal Medicine; Visit Provider Internal Medicine
DX: M25.572 Pain in left ankle and joints of left foot (principal); R26.81 Unsteadiness on feet; R79.89 Other specified abnormal findings of blood chemistry; F99 Mental disorder, not otherwise specified; E78.9 Disorder of lipoprotein metabolism, unspecified; E66.01 Morbid (severe) obesity due to excess calories; E11.9 Type 2 diabetes mellitus without complications; Z79.4 Long term (current) use of insulin; Z87.81 Personal history of (healed) traumatic fracture
CPT/HCPCS: 36415; 73610; 80053; 83721; 84439; 84443; 85025

== ENCOUNTER → 2024-05-13 08:53 | Outpatient (BNV) | payer OTHER, SELFPAY | PROVIDERS: PCP Internal Medicine; Visit Provider Radiology Diagnostic Radiology | DX: M25.572 Pain in left ankle and joints of left foot (principal) | CPT/HCPCS: 73610 ==

== ENCOUNTER → 2024-08-17 08:33 | Outpatient (BNVA) | payer OTHER, SELFPAY | PROVIDERS: PCP Internal Medicine; Visit Provider Internal Medicine | DX: Z13.89 Encounter for screening for other disorder (principal) ==

== ENCOUNTER 2024-09-06 14:24 | Outpatient (AMB) | payer OTHER, SELFPAY ==
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
[2024-09-06 14:39] VITALS: BP 116/74; PULSE 102; O2SAT 96; BMI 47.0
--- OUTSIDE RECORDS SUMMARY | 2024-09-06 14:54 | XMS_ITS | Clinical Summary ---
Author Organization [facility] [address] [place] [address] [place] [phone] Phone Care Team Providers Care Bearing Ring Assembler Name Role Phone Dileep Peterson MD Primary Care Provider [phone] Allergies Active Allergy Reactions Criticality Noted Date Comments Carbamazepine High 04/12/2014 Loss white cells Dulaglutide Itching 07/08/2019 Medications atorvastatin (LIPITOR) 40 mg tablet Take 1 Tablet by mouth daily. 3 Active pen needle, diabetic (BD Ultra-Fine Short Pen Needle) 31 gauge x 5/16 needle Inject 1 Each into the skin daily. Use 4xdaily with Lantus and novolog Insulin. 3 Active blood-glucose meter kit Use to check blood sugar twice a day. DX-E11.49. NIDDM 6 Active flash glucose sensor (FreeStyle Rukhsana 2 Sensor) kit 1 Device by Does not apply route every 14 days. 4 Active empagliflozin (Jardiance) 25 mg tablet Take 1 Tablet by mouth daily. 3 Active FREESTYLE LANCETS MISC Use to test blood sugars twice a day *Freestyle* 8 Active blood sugar diagnostic (FreeStyle Lite Strips) test strip Use to test blood sugars twice a day freestyle 8 Active blood-glucose meter kit Use to test blood sugars twice a day freestyle 8 Active insulin glargine (Lantus Solostar U-100 Insulin) 100 unit/mL (3 mL) injection pen Inject 52 Units into the skin daily. 4 Active pen needle, diabetic (Lite Touch Insulin Pen [place]) 29 gauge x 1/2 needle Used with lantus. 1 Active lisinopriL (PRINIVIL,ZEST RIL) 2.5 mg tablet Take 1 Tablet by mouth daily. 3 Active metFORMIN (GLUCOPHAGE) 1,000 mg tablet Take 1 tablet twice daily with food. 4 Active OLANZapine (ZyPREXA) 2.5 mg tablet Take 1 Tab by mouth at bedtime for 30 days. 9 Active ONETOUCH DELICA LANCETS [facility] Use to test blood sugar twice a day. DX-E11.49.N IDDM. 6 Active topiramate (TOPAMAX) 100 mg tablet Take 1 Tablet by mouth 2 Times Daily. 3 Active semaglutide (Ozempic) 1 mg/dose (4 mg/3 mL) injection pen Inject 1 mg into the skin every 7 days. 3 mL 5 Active Ozempic 1 mg/dose (4 mg/3 mL) injection pen Inject 1 mg into the skin every 7 days. 3 mL 5 4 09/03/19 25 Discontinued Active Problems Problem Noted Date Diagnosed Date Morbid obesity with BMI of 4 5.0-49.9, adult ([facility] V24, [facility] V28) 12/18/2023 Polyneuropathy 06/05/2017 Diabetes mellitus type 2 wit h neurological manifestations ([facility] V24, [facility] V28) 04/17/2017 Brief reactive psychosis ([facility] V24, [facility] V 28) 03/27/2017 Obstructive sleep apnea 11/15/2016 Overview (12/18/2023): [facility] Home Polysomnogram: Date 11/08/2016; AHI 94, Unclassified apneas 1; Obstructive apneas 248; Central apneas 5; Mixed apneas 0; hypopneas 177; average oxygen saturation 91% (lowest 75% with saturations <88% for 21% of study) [facility] Polysomnogram treatment study. Date [...] Subclinical hypothyroidism 11/10/2014 Nightmares 04/12/2014 Seizure disorder ([facility] V24, [facility] V28) 05/2014 Immunizations Name Administration Dates Next Due Moderna SARS-CoV-2 COVID-19, mRNA, LNP-S, preservative free 01/24/2021,06/09/2020,05/12/2020 Pneumococcal polysaccharide 23 valent (Pneumovax 23) 2yo and older 08/13/2021 Tdap Tetanus diptheria acell ular pertussis (Boostrix; Adacel) 7yo and older 10/26/2014 Surgical History Surgery Date Site/Laterality Comments OTHER SURGICAL HISTORY PROCEDURE: SD REPAIR PRIMARY OPEN/PRQ RUPTURED ACHILLES TENDON COLONOSCOPY 03/13/2015 PROCEDURE: HISTORICAL COLONOSCOPY; COMMENT: [facility] - sigmoid tics, internal hems; o/w normal to TI ANKLE SURGERY 2014 PROCEDURE: HISTORICAL ANKLE SURGERY Medical History Medical History Date Comments Seizure disorder ([facility] V2 4, [facility] V28) 04/12/2014 DX:Seizure disorder ([facility]) Morbid obesity with BMI of 4 5.0-49.9, adult ([facility] V24, [facility] V28) 03/11/2017 DX:Morbid obesity wit h BMI of 45.0-49.9, adult ([facility]) Diabetes mellitus type 2 wit h neurological manifestations ([facility] V24, [facility] V28) 04/17/2017 DX:Diabetes mellitus type 2 with neurological manifestations ([facility]) Polyneuropathy 06/05/2017 DX:Polyneuropath y Brief reactive psychosis ( S/[facility] V24, [facility] V28) 03/27/2017 DX:Brief reactive psychosis (HCC) Chronic ankle pain 05/30/2015 DX:Chronic an kle [...] 09/04/2023 1:01 PM EDT Plan of Treatment Upcoming Encounters Date Type Department Care Team ([facility] st Contact Info) Description 10/06/2024 11:15 AM EDT Office Visit Endocrinology [address] [place] [phone] Aleksandra Diaz PA [address] [place] [address] Health Maintenance Due Date Last Done Comments [...] (2023-2 5 season) 2023 01/24/2021, 06/09/2020, 05/12/2020 Diabetes: Blood Sugar Contro l Test (HGBA1C) 01/17/2024 07/17/2023, 07/17/2023 Diabetes: Annual Urine Albumin-Creatinine Ratio (uACR) 07/16/2024 07/17/2023 Diabetes: Annual GFR (Glomerular Filtration Rate) 07/16/2024 07/17/2023, 07/17/2023 DTaP,Tdap,and Td Vaccines (2 - Td or Tdap) 10/26/2024 10/26/2014 Influenza Vaccine (Season Ended) 2024 Colorectal Cancer Screening: Colonoscopy 03/13/2025 03/13/2015 Cholesterol [...] age to complete this topic Meningococcal B Vaccine Aged Out No l onger eligible based on patient's age to complete this topic RSV Immunization Patients Under 20 months Aged Out No longer eligible b ased on patient's age to complete this topic Varicella Vaccines Aged Out No longer eligible based on patient's age to complete this topic Procedures Procedure Name Priority Date/Time Associated Diagnosis Comments URINE ALBUMIN CREATININE RATIO Routine 07/17/2023 ANNUAL BMP BLOOD TEST Routine 07/17/2023 HEMOGLOBIN A1C Routine 07/17/2023 LIPID PANEL Routine 07/17/2023 HEPATITIS C SCREENING Routine 12/28/2021 COLONOSCOPY Routine 03/13/2015 from Last 3 Months or Most Recently Relevant to Health Maintenance Results * Urine Albumin Creatinine Ratio (07/17/2023) Pathologist [facility] Urine Albumin Creatinine Ratio Abstracted [facility] Provider HEALTH MAINTENANCE Final Result * Annual BMP Blood Test (07/17/2023) Pathologist [facility] Annual BMP Blood Test Abstracted [facility] Provider HEALTH MAINTENANCE Final Result * (ABNORMAL) Hemoglobin A1c (07/17/2023) Pathologist [facility] Hemoglobin A1C 11.5(A) <=6.5 % Blood Venous blood specimen / Unknown [facility] Provider LAB BLOOD ORDERABLES Lazara l Result * (ABNORMAL) Lipid panel (07/17/2023) Pathologist [facility] LDL/HDL Ratio 5(A) 0 - 4 Triglycerides 201(A) 0 - 150 mg/dL Cholesterol 130 0 - 200 mg/dL HDL 27(A) >=40 mg/dL LDL Cholesterol 63 0 - 100 mg/dL Blood Venous blood specimen / Unknown Historical Provider LAB BLOOD ORDERABLES Lazara l Result * Hepatitis C Screening (12/28/2021) Hepatitis C Screening Abstracted Historical Provider HEALTH MAINTENANCE Final Result * Colonoscopy (03/13/2015) Colonoscopy No Interpretation , Abstracted Anatomical Region Laterality Modality Other Historical Provider HEALTH MAINTENANCE Final Result from Last 3 Months or Most Recently Relevant to [place] [phone] [facility] Care Teams Bearing Ring Assembler Relationship Specialty Start Date End Date Dileep Peterson MD [address] [place] [address] PCP - General Internal Medicine 07/16/21
--- OUTSIDE RECORDS SUMMARY | 2024-09-06 14:54 | XMS_ITS | Clinical Summary ---
Author Organization [facility] Address [address] [place] [address] Care Team Providers Care Laboratory Equipment Installer Name Role Phone Unavailable Primary Care Provider [...] complication, without long-term current use of insulin ([facility]) Use to check blood sugar twice a day. DX-E11.49. NIDDM 6 Active SITagliptin-metform in (JANUMET) 50-1,000 mg per tabletIndications:T ype 2 diabetes mellitus with other specified complication, unspecified whether oil heaterman insulin use ([facility]) Take 1 Tablet by mouth 2 (two) times daily with a meal DXE11.69Pl sarai on hold 180 Tablet 1 Active insulin glargine (LANTUS SOLOSTAR U-100 INSULIN) 100 unit/mL (3 mL)Indications:Type 2 diabetes mellitus with other specified complication, unspecified whether retirement insulin use ([facility]) Inject 30 Units into the skin nightly at bedtime APPT required for further refills DXE11.69 9 mL 1 1 Active lisinopriL 2.5 mg tabletIndications:T ype 2 diabetes mellitus without complication, without long-term current use of insulin ([facility]) Take 1 Tab by mouth every morning 90 Tablet 1 2 Active BD ULTRA-FINE RONA PEN NEEDLE 32 gauge x ndleIndications:Typ e 2 diabetes mellitus with other specified complication, unspecified whether oil heaterman insulin use ([facility]) Use to inject insulin 1 TIME A DAY DIRECTED.DXE 11.69 100 Each 2 Active topiramate (TOPAMAX) 100 mg tabletIndications:S eizure disorder ([facility]) Take 1 Tab by mouth 2 (two) [...] disorder, mixed t ype, with bizarre content ([facility]) 05/27/2019 Type 2 diabetes mellitus wit hout complication, without long-term current use of insulin ([facility]) 03/19/2019 Mixed hyperlipidemia 03/19/2019 Elevated liver function tests 04/24/2018 Polyneuropathy 06/05/2017 Type 2 diabetes mellitus wit h neurological manifestations ([facility]) 04/17/2017 Brief reactive psychosis ([facility]) 018 Morbid obesity with body mas s index of 45.0-49.9 in adult ([facility]) 03/11/2017 Obstructive sleep apnea 11/15/2016 Overview (02/26/2019): [facility] Home Polysomnogram: Date 11/08/2016; AHI 94, [...] 05/30/2015 Abnormal thyroid exam 11/10/2014 Seizure disorder ([facility]) 04/12/2014 Nightmares 04/12/2014 Immunizations Immunization Administration Dates Next Due Flu, Preservative Free [...] 97 06/21/2022 2:57 PM EDT Temperature 36.3 C (97.3 F) 05/12/2019 1:25 PM EST Respiratory Rate 18 05/12/2019 1:25 PM EST [...] Flexible Sigmoidoscopy 06/12/2015 Dental Examination 02/04/2020 02/01/2019 Lipid Screening 02/27/2020 02/26/2019, 12/04/2018 Serum Creatinine 02/27/2020 02/26/2019, 12/04/2018 Urine Albumin Creatinine Rat io Screening 02/27/2020 02/26/2019 Annual Wellness (Adult): Ind icated (All Coverage) 03/19/2020 03/19/2019 Hemoglobin A1c 04/29/2020 01/28/2020, 02/08, 12/04/2018 Anxiety Screening 05/10/2020 05/11/2019 Imm-Zoster, Recombinant (1 of 2) 2020 Diabetes Foot Exam 09/29/2020 09/30/2019 Imm-Pneumococcal (2 of 2 - PCV) 08/13/2022 2 Hypertension Screening (#1) 06/21/2023 [id number] ( season) 2023 01/24/2021, 06/09/2020, 05/12/2020 Alcohol and Drug Screen 03/10/2024 02/26/2019 Depression Annual Screen 03/10/2024 05/11/2019 Imm-DTaP/Tdap/Td (2 - Td or Tdap) 10/26/2024 015 Imm-Influenza (Season Ended) 2024 05/19/2020, 02/26/2019 Procedures Procedure Name Priority Date/Time Associated Diagnosis Comments HEMOGLOBIN GLYCOSYLATED A1C Routine 01/28/2020 9:42 AM EST Type 2 diabetes mellitus with other specified complication, unspecified whether oil heaterman insulin use ([facility]) REFERRAL TO PODIATRY Routine 09/30/2019 12:00 AM EDT Type 2 diabetes mellitus with other specified complication, unspecified whether retirement insulin use ([facility]) COMPREHENSIVE METABOLIC PANEL Routine 02/26/2019 3:52 PM EST Elevated liver function tests LIPID PANEL Routine 02/26/2019 3:52 PM EST Pure hypercholesterolemia MICROALBUMIN/CREATI NINE RATIO, URINE, RANDOM Routine 02/26/2019 3:48 PM EST Type 2 diabetes mellitus with neurological manifestations ([facility]) from Last 3 Months or Most Recently Relevant to Health Maintenance Results * (ABNORMAL) HEMOGLOBIN, GLYCOSYLATED (A1C) (01/28/2020 9:42 AM EST) GLYCATED HEMOGLOBIN A1C 7.4(H) <6.5 % [facility] ESTIMATED AVERAGE GLUCOSE 166 mg/dL [facility] 01/28/2020 9:42 AM EST 01/28/2020 3:47 PM EST Narrative [employer] - 01/28/2020 7:51 PM EST [employer], a member of [address] [place] [address] [employer]roleum [place] [id number] ORD# [id number] Chma Provider Default LAB - BLOOD DRAW Final Res ult Performing Organization Address [facility]/ZIP Co de Phone Number [address] [address], [place] [phone] * REFERRAL PODIATRY (09/30/2019 12:00 AM EDT) 09/30/2019 Luz Hopper PharmD REFERRAL Final Resul t * (ABNORMAL) LIPID PANEL (02/26/2019 3:52 PM EST) CHOLESTEROL 125 0 - 200 mg/dL [facility] TRIGLYCERIDES 162(H) 0 - 150 mg/dL [facility] HDL CHOLESTEROL 27(L) >40 mg/dL [facility] LDL CALCULATED 66 0 - 100 mg/dL [facility] TC-HDLC RATIO 4.6(H) 0 - 4.4 mg/dL [facility] Blood specimen (specimen) Blood / Unknown 02/26/2019 3:52 PM EST 02/26/2019 4:[address] [facility] - 02/26/2019 6:50 PM EST [facility] [employer], [place] [address] Petroleum Plant [place] [id number] ORD# [id number] Yong Alvarez PA-C, [facility] LAB - BLOOD DRAW Edited Result - Final Performing Organization Address City/[facility]/ZIP Co de Phone Number [address] [address], [place] [phone] * (ABNORMAL) COMPRE METAB PANEL (02/26/2019 3:52 PM EST) GLUCOSE 264(H) 70 - 100 mg/dL [facility] Comment:Reference range appl icable to fasting specimens only BUN 15 5 - 25 mg/dL [facility] CREAT 0.86 0.7 - 1.3 mg/dL [facility] GLOMERULAR FILTRATION RATE > 60 [facility] Comment: If patient is -Bulgarian, multiply result by 1.21 Chronic Kidney Disease: < 60 ml/min/1.73 square meters Kidney Failure: < 15 ml/min/1.73 square meters SODIUM 136 135 - 145 mEq/L [facility] POTASSIUM 4.0 3.5 - 5.5 mmol/L [facility] CHLORIDE 101 96 - 110 mmol/L [facility] CO2 30 21 - 32 mmol/L [facility] ANION GAP 5 3 - 11 [facility] CALCIUM 9.0 8.5 - 10.5 mg/dL [facility] TOTAL PROTEIN 7.8 6.0 - 8.0 G/dL [facility] ALBUMIN 3.5 3.2 - 5.0 G/dL [facility] BILI, TOTAL 0.6 0.0 - 1.4 mg/dL [facility] SGOT 55(H) 10 - 42 U/L [facility] SGPT 61(H) 10 - 60 U/L [facility] ALK PHOS 143(H) 42 - 121 U/L [facility] Blood specimen (specimen) Blood / Unknown 02/26/2019 3:52 PM EST 02/26/2019 4:[address] [facility] - 02/26/2019 6:50 PM EST [employer] [address] Petroleum Plant [place] [id number] ORD# [id number] us Yong Alvarez PA-C, [facility] LAB - BLOOD [place]RAW [place] [address], * MICROALBUMIN/CREATININE RATIO, URINE, RANDOM (02/26/2019 3:48 PM EST) CREATININE, RANDOM URINE 191 mg/dL [facility] MICROALBUMIN, RANDOM 24.6 0.0 - 29.0 mg/L [facility] MICROALB/CRE RATIO RANDOM 12.8 0.0 - 30.0 mg/G [facility] Urine specimen (specimen) Urine specimen / Unknown 02/26/2019 3:48 PM EST 02/26/2019 4:12 PM EST Narrative [facility] [employer] - 02/26/2019 7:12 PM EST [employer], a member of [address] [address] Petroleum Plant [place] [id number] ORD# [id number] Yong Alvarez PA-C, [facility] URINE AMBULATORY Narinder eileen Result - Final [address] [address], from Last 3 Months or Most Recently Relevant to Health Maintenance Insurance [employer] COM [facility] [place] [id number]
--- OUTSIDE RECORDS SUMMARY | 2024-09-06 14:55 | XMS_ITS | Patient Health Record ---
Author Organization [facility] Address [address] [place] [id number] Care Team Providers Care Ship/Rec/Doc Control Name Role Phone NO, PCP Primary Care Provider LeonelLeonelChristinaetiennecarlosMiriam Unavailable [phone] Allergies Allergen (clinical drug ingredient) Drug/Non Drug [...] Start Date Coverage End Date Health Safety [facility] [address] [place] [address] [id number] Luis Antonio Arita Self - patient is the insured 2 Medical (General) History Medical History History ICD Code Diabetes type II Epilepsy / Seizures Hydrocephalus at L ankle surgery (6 pins placed, broken a nkle)
== END 2024-09-06 15:40 | disposition home or self-care (01) ==
LOC: HO.HSMS 14:25
PROVIDERS: Absent Provider Physician Assistant Medical; PCP Internal Medicine; Visit Provider Physician Assistant Medical
DX: G47.33 Obstructive sleep apnea (adult) (pediatric) (principal); F99 Mental disorder, not otherwise specified; Z86.59 Personal history of other mental and behavioral disorders
CPT/HCPCS: 99214; G2211

== ENCOUNTER → 2024-09-06 14:24 | Outpatient (BNVA) | payer OTHER, SELFPAY | PROVIDERS: Absent Provider Physician Assistant Medical; PCP Internal Medicine; Visit Provider Physician Assistant Medical | DX: G47.33 Obstructive sleep apnea (adult) (pediatric) (principal); F99 Mental disorder, not otherwise specified; Z86.59 Personal history of other mental and behavioral disorders | CPT/HCPCS: 99212 ==

== ENCOUNTER → 2024-10-04 19:30 | Outpatient (REF) | payer OTHER, SELFPAY ==
--- OUTSIDE RECORDS SUMMARY | 2024-10-04 20:36 | XMS_ITS | Patient Health Record ---
Author Organization [facility] Address [address] [place] [id number] Care Team Providers Care No Experience Name Role Phone NO, PCP Primary Care Provider LeonelLeonelChristinaetiennecarlosMiriam Unavailable [phone] Allergies Allergen (clinical drug ingredient) Drug/Non Drug [...] [facility] [address] [place] [address] [id number] Luis Antonio Arita Self - patient is the insured 2 Medical (General) History Medical History History ICD Code Diabetes type II Epilepsy / Seizures Hydrocephalus at L ankle surgery (6 pins placed, broken a nkle)
--- OUTSIDE RECORDS SUMMARY | 2024-10-04 20:36 | XMS_ITS | Clinical Summary ---
Author Organization [facility] Address [address] [place] [address] Care Team Providers Care Veneer Sample Maker Name Role Phone Unavailable Primary Care Provider [...] complication, without long-term current use of insulin ([facility]) Use to check blood sugar twice a day. DX-E11.49. NIDDM 6 Active SITagliptin-metform in (JANUMET) 50-1,000 mg per tabletIndications:T ype 2 diabetes mellitus with other specified complication, unspecified whether documentation spec insulin use ([facility]) Take 1 Tablet by mouth 2 (two) times daily with a meal DXE11.69Pl sarai on hold 180 Tablet 1 Active insulin glargine (LANTUS SOLOSTAR U-100 INSULIN) 100 unit/mL (3 mL)Indications:Type 2 diabetes mellitus with other specified complication, unspecified whether group home insulin use ([facility]) Inject 30 Units into the skin nightly at bedtime APPT required for further refills DXE11.69 9 mL 1 1 Active lisinopriL 2.5 mg tabletIndications:T ype 2 diabetes mellitus without complication, without long-term current use of insulin ([facility]) Take 1 Tab by mouth every morning 90 Tablet 1 2 Active BD ULTRA-FINE RONA PEN NEEDLE 32 gauge x ndleIndications:Typ e 2 diabetes mellitus with other specified complication, unspecified whether documentation spec insulin use ([facility]) Use to inject insulin 1 TIME A DAY DIRECTED.DXE 11.69 100 Each 2 Active topiramate (TOPAMAX) 100 mg tabletIndications:S eizure disorder ([facility]) Take 1 Tab by mouth 2 (two) [...] disorder, mixed t ype, with bizarre content ([facility]) 05/27/2019 Type 2 diabetes mellitus wit hout complication, without long-term current use of insulin ([facility]) 03/19/2019 Mixed hyperlipidemia 03/19/2019 Elevated liver function tests 04/24/2018 Polyneuropathy 06/05/2017 Type 2 diabetes mellitus wit h neurological manifestations ([facility]) 04/17/2017 Brief reactive psychosis ([facility]) 018 Morbid obesity with body mas s index of 45.0-49.9 in adult ([facility]) 03/11/2017 Obstructive sleep apnea 11/15/2016 Overview (02/26/2019): [facility] Home Polysomnogram: Date 11/08/2016; AHI [...] 05/30/2015 Abnormal thyroid exam 11/10/2014 Seizure disorder ([facility]) 04/12/2014 Nightmares 04/12/2014 Immunizations Immunization Administration Dates [...] 2020 Diabetes Foot Exam 09/29/2020 09/30/2019 Imm-Pneumococcal 50+ (2 of 2 - PCV) 08/13/202208/13 Hypertension Screening (#1) 06/21/2023 [id number] ( season) 2023 01/24/2021, 06/09/2020, 05/12/2020 Alcohol and Drug Screen 03/10/2024 02/26/2019 Depression Annual Screen 03/10/2024 05/11/2019 Imm-DTaP/Tdap/Td (2 - Td or Tdap) 10/26/2024 015 Imm-Influenza (#1) 2024 05/19/2020, 02/26/2019 Procedures Procedure Name Priority Date/Time Associated Diagnosis Comments HEMOGLOBIN GLYCOSYLATED A1C Routine 01/28/2020 9:42 AM EST Type 2 diabetes mellitus with other specified complication, unspecified whether documentation spec insulin use ([facility]) REFERRAL TO PODIATRY Routine 09/30/2019 12:00 AM EDT Type 2 diabetes mellitus with other specified complication, unspecified whether documentation spec insulin use ([facility]) COMPREHENSIVE METABOLIC PANEL Routine 02/26/2019 3:52 PM EST Elevated liver function tests LIPID PANEL Routine 02/26/2019 3:52 PM EST Pure hypercholesterolemia MICROALBUMIN/CREATI NINE RATIO, URINE, RANDOM Routine 02/26/2019 3:48 PM EST Type 2 diabetes mellitus with neurological manifestations ([facility]) from Last 3 Months or Most Recently Relevant to Health Maintenance Results * (ABNORMAL) HEMOGLOBIN, GLYCOSYLATED (A1C) (01/28/2020 9:42 AM EST) GLYCATED HEMOGLOBIN A1C 7.4(H) <6.5 % [facility] ESTIMATED AVERAGE GLUCOSE 166 mg/dL [facility] 01/28/2020 9:42 AM EST 01/28/2020 3:47 PM EST Narrative [facility] - 01/28/2020 7:51 PM EST [employer], [place] [address] Last Remodeler Repaire[place] [id number] ORD# [id number] Chma Provider Default LAB - BLOOD DRAW Final Res ult Performing Organization Address [facility]/ZIP Co de Phone Number [address] [address], [place] [phone] * REFERRAL PODIATRY (09/30/2019 12:00 AM EDT) 09/30/2019 Luz Hopper PharmD REFERRAL Final Resul t * (ABNORMAL) LIPID PANEL (02/26/2019 3:52 PM EST) CHOLESTEROL 125 0 - 200 mg/dL [facility] TRIGLYCERIDES 162(H) 0 - 150 mg/dL [facility] HDL CHOLESTEROL 27(L) >40 mg/dL [facility] LDL CALCULATED 66 0 - 100 mg/dL [facility] TC-HDLC RATIO 4.6(H) 0 - 4.4 mg/dL [facility] Blood specimen (specimen) Blood / Unknown 02/26/2019 3:52 PM EST 02/26/2019 4:12 PM EST Narrative [facility] - 02/26/2019 6:50 PM EST [facility] [employer], a member of [address] [address] Last Remodeler Repaire[place] [id number] ORD# [id number] Yong Alvarez PA-C, [facility] LAB - BLOOD DRAW Edited Result - Final Performing Organization Address City/[facility]/ZIP Co de Phone Number [address] [address], [place] [phone] * (ABNORMAL) COMPRE METAB PANEL (02/26/2019 3:52 PM EST) GLUCOSE 264(H) 70 - 100 mg/dL [facility] Comment:Reference range appl icable to fasting specimens only BUN 15 5 - 25 mg/dL [facility] CREAT 0.86 0.7 - 1.3 mg/dL [facility] GLOMERULAR FILTRATION RATE > 60 [facility] Comment: If patient is -Faroese, multiply result by 1.21 Chronic Kidney Disease: < 60 ml/min/1.73 square meters Kidney Failure: < 15 ml/min/1.73 square meters SODIUM 136 135 - 145 mEq/L [facility] POTASSIUM 4.0 3.5 - 5.5 mmol/L [facility] CHLORIDE 101 96 - 110 mmol/L [facility] CO2 30 21 - 32 mmol/L [facility] ANION GAP 5 3 - 11 [facility] CALCIUM 9.0 8.5 - 10.5 mg/dL [facility] TOTAL PROTEIN 7.8 6.0 - 8.0 G/dL [facility] ALBUMIN 3.5 3.2 - 5.0 G/dL [facility] BILI, TOTAL 0.6 0.0 - 1.4 mg/dL [facility] SGOT 55(H) 10 - 42 U/L [facility] SGPT 61(H) 10 - 60 U/L [facility] ALK PHOS 143(H) 42 - 121 U/L [facility] Blood specimen (specimen) Blood / Unknown 02/26/2019 3:52 PM EST 02/26/2019 4:12 PM EST Narrative [facility] - 02/26/2019 6:50 PM EST [employer], [place] [address] Last Remodeler Repaire[place] [id number] ORD# [id number] Yong Alvarez PA-C, [facility] LAB - BLOOD DRAW Edited [place] [address], * MICROALBUMIN/CREATININE RATIO, URINE, RANDOM (02/26/2019 3:48 PM EST) CREATININE, RANDOM URINE 191 mg/dL [facility] MICROALBUMIN, RANDOM 24.6 0.0 - 29.0 mg/L [facility] MICROALB/CRE RATIO RANDOM 12.8 0.0 - 30.0 mg/G [facility] Urine specimen (specimen) Urine specimen / Unknown 02/26/2019 3:48 PM EST 02/26/2019 4:12 PM EST Narrative [facility] 02/26/2019 7:12 PM EST [employer], a member of [address] [address] Last Remodeler [place] [id number] ORD# [id number] Yong Alvarez PA-C, [facility] LAB URINE AMBULATORY Narinder eileen Result - Final [address] [address], from Last 3 Months or Most Recently Relevant to Health Maintenance Insurance [employer] [facility] [id number]
--- OUTSIDE RECORDS SUMMARY | 2024-10-04 20:36 | XMS_ITS | Clinical Summary ---
Author Organization [facility] [address] [place] [address] [place] [phone] Phone Care Team Providers Care Applications System Analyst Name Role Phone Dileep Peterson MD Primary Care Provider [phone] Allergies Active Allergy Reactions Criticality Noted Date [...] pen needle, diabetic (Lite Touch Insulin Pen [place]) 29 gauge x 1/2 needle Used with lantus. 11/15/2020 Active lisinopriL (PRINIVIL,ZESTR IL) 2.5 mg tablet Take 1 Tablet by mouth daily. 06/28/2022 Active metFORMIN (GLUCOPHAGE) 1,000 mg tablet Take 1 tablet twice daily with food. 09/29/2023 Active OLANZapine (ZyPREXA) 2.5 mg tablet Take 1 Tab by mouth at bedtime for 30 days. 12/23/2018 Active ONETOUCH DELICA LANCETS [facility] Use to test blood sugar twice a day. DX-E11.49.NI DDM. 06/12/2015 Active topiramate (TOPAMAX) 100 mg tablet Take 1 Tablet by mouth 2 Times Daily. 01/01/2023 Active semaglutide (Ozempic) 1 mg/dose (4 mg/3 mL) injection pen Inject 1 mg into the skin every 7 days. 3 mL 09/02/2024 Active Active Problems Problem Noted Date Diagnosed Date Morbid obesity with BMI of 4 5.0-49.9, adult ([facility] V24, [facility] V28) 12/18/2023 Polyneuropathy 06/05/2017 Diabetes mellitus type 2 wit h neurological manifestations ([facility] V24, [facility] V28) 04/17/2017 Brief reactive psychosis ([facility] V24, [facility] V 28) 03/27/2017 Obstructive sleep apnea 11/15/2016 Overview (12/18/2023): [facility] Home Polysomnogram: Date 11/08/2016; AHI 94, Unclassified apneas 1; Obstructive apneas 248; Central apneas 5; Mixed apneas 0; hypopneas 177; average oxygen saturation 91% (lowest 75% with saturations <88% for 21% of study) [facility] Polysomnogram treatment study. Date 02/16/2017 . [...] Subclinical hypothyroidism 11/10/2014 Nightmares 04/12/2014 Seizure disorder ([facility] [place], [facility] V28) 05/2014 Immunizations Name Administration Dates Next Due Moderna SARS-CoV-2 COVID-19, mRNA, LNP-S, preservative free 01/24/2021,06/09/2020,05/12/2020 Pneumococcal polysaccharide 23 valent (Pneumovax 23) 2yo and older 08/13/2021 Tdap Tetanus diptheria acell ular pertussis (Boostrix; Adacel) 7yo and older 10/26/2014 Surgical History Surgery Date Site/Laterality Comments OTHER SURGICAL HISTORY PROCEDURE: MT REPAIR PRIMARY OPEN/PRQ RUPTURED ACHILLES TENDON COLONOSCOPY 03/13/2015 PROCEDURE: HISTORICAL COLONOSCOPY; COMMENT: [facility] - sigmoid tics, internal hems; o/w normal to TI ANKLE SURGERY 2014 PROCEDURE: HISTORICAL ANKLE SURGERY Medical History Medical History Date Comments Seizure disorder ([facility] V2 4, [facility] V28) 04/12/2014 DX:Seizure disorder ([facility]) Morbid obesity with BMI of 4 5.0-49.9, adult ([facility] [place]24, [facility] V28) 03/11/2017 DX:Morbid obesity wit h BMI of 45.0-49.9, adult ([facility]) Diabetes mellitus type 2 wit h neurological manifestations ([facility]24, [facility] V28) 04/17/2017 DX:Diabetes mellitus type 2 with neurological manifestations ([facility]) Polyneuropathy 06/05/2017 DX:Polyneuropath y Brief reactive psychosis ([facility] V24, [facility] V28) 03/27/2017 DX:Brief reactive psychosis ([facility]) Chronic ankle pain 05/30/2015 DX:Chronic an kle pain History of hydrocephalus as a child 11/02/2015 DX:History of hydrocephalus as a child; COMMENT: CT head 2011 shows break in the ventricular catheter at the level of the calvarium Nightmares 04/12/2014 DX:Nightmares Obstructive sleep apnea 11/15/2016 DX:Obstr uctive sleep apnea; COMMENT: [facility] Home Polysomnogram: Date 11/08/2016; AHI [...] Upcoming Encounters Date Type Department Care Team (Late st Contact Info) Description 10/06/2024 11:15 AM EDT Office Visit Endocrinology - [address] [phone] Aleksandra Diaz PA [address] [place] [address] Health Maintenance Due Date Last Done Comments Diabetes: Annual Foot Exam 1980 Diabetes: Annual Retina Eye Exam 1980 Hepatitis B Vaccines (1 of 3 - 19+ 3-dose series) 1989 Zoster Vaccines (1 of 2) 2020 HIV Screening 02/16/2022 Social Influencers of Health Screening 02/16/2022 Pneumococcal Vaccine: 50+ Years (2 of 2 - PCV) 08/13/2022 08/13/2021 COVID-19 Vaccine (4 - 2023-2 5 season) 2023 01/24/2021, 06/09/2020, 05/12/2020 Diabetes: Blood Sugar Contro l Test (HGBA1C) 01/17/2024 07/17/2023, 07/17/2023 Depression Screening 03/10/2024 Diabetes: Annual Urine Albumin-Creatinine Ratio (uACR) 07/16/2024 07/17/2023 Diabetes: Annual GFR (Glomerular Filtration Rate) 07/16/2024 07/17/2023, 07/17/2023 DTaP,Tdap,and Td Vaccines (2 - Td or Tdap) 10/26/2024 10/26/2014 Influenza Vaccine (#1) 2024 Colorectal Cancer Screening: Colonoscopy 03/13/2025 03/13/2015 [...] Results * Urine Albumin Creatinine Ratio (07/17/2023) [facility] Urine Albumin Creatinine Ratio Abstracted Result [facility] Provider HEALTH MAINTENANCE Final Result * Annual BMP Blood Test (07/17/2023) [facility] Annual BMP Blood Test Abstracted [facility] Provider HEALTH MAINTENANCE Final Result * (ABNORMAL) Hemoglobin A1c (07/17/2023) [facility] [address] [facility] Hemoglobin A1C 11.5(A) <=6.5 % Blood Venous blood specimen / Unknown Result [facility] Provider LAB BLOOD ORDERABLES Lazara l Result * (ABNORMAL) Lipid panel (07/17/2023) [facility] [address] LDL/HDL Ratio 5(A) 0 - 4 Triglycerides 201(A) 0 - 150 mg/dL Cholesterol 130 0 - 200 mg/dL HDL 27(A) >=40 mg/dL LDL Cholesterol 63 0 - 100 mg/dL Blood Venous blood specimen / Unknown Result [facility] Provider LAB BLOOD ORDERABLES Lazara l Result * Hepatitis C Screening (12/28/2021) [facility] Hepatitis C Screening Abstracted us Historical Provider HEALTH MAINTENANCE Final Result * Colonoscopy (03/13/2015) [facility] Colonoscopy No Interpretation , Abstracted Anatomical Region Laterality Modality Other us Historical Provider HEALTH MAINTENANCE Final Result from Last 3 Months or Most Recently Relevant to Health Maintenance Insurance [facility] [place] [address] Care Teams Applications System Analyst Relationship Specialty Start Date End Date Dileep Peterson MD [address] [place] [address] PCP - General Internal Medicine 07/16/21
== END ==
LOC: HO.SL 19:30
PROVIDERS: PCP Internal Medicine; Visit Provider Physician Assistant Medical
DX: G47.33 Obstructive sleep apnea (adult) (pediatric) (principal); G25.81 Restless legs syndrome; G47.61 Periodic limb movement disorder
CPT/HCPCS: 95810

== ENCOUNTER → 2024-10-04 19:30 | Outpatient (BNV) | payer OTHER, SELFPAY | PROVIDERS: PCP Internal Medicine; Visit Provider Psychiatry & Neurology Neurology | DX: G47.33 Obstructive sleep apnea (adult) (pediatric) (principal) | CPT/HCPCS: 95810 ==

== ENCOUNTER 2024-11-23 10:38 | Outpatient (AMB) | payer OTHER, SELFPAY ==
--- OUTSIDE RECORDS SUMMARY | 2024-11-20 17:00 | XMS_ITS ---
Author Organization [facility] Address [address] [place] [address] Care Team Providers Care Head Field Hockey Coach Name Role Phone NO, PCP Primary Care Provider Miriam Mann Unavailable [phone] Migration, Provider Unavailable Unavailable Allergies Allergen (clinical drug ingredient) Drug/Non Drug Allergy documented on EMR Reaction Allergy Type Onset Date Status carbamazepine TEGretol Unknown Drug Allergy Act denia [facility] Encounter Medications Medication SIG (Take, [...] Active Encounters Encounter Location Date Provider Diagnosis [facility] [address] [place] [address] 11/20/2024 Provider Migration Plan Of Treatment Medication Medication Name Sig Start Date Stop Date Notes Amoxicillin 875 MG 1 tab(s) orally ever y 12 hours for 7 days 06/17/2022 Progress Notes * Luis Antonio DE LOS SANTOSDOB:[birth year] (54 yo M)Acc No.[id number]:11/20/2024 Patient: Luis Antonio DOBBINS Provider: :1970 A ge:54 Y S ex:Male Date:11/20/2024 Address: [address], [address] [facility], [id number] Pcp:PCP NO Subjective: * Chief Complaints: * [...] Electronic signature of Prov ider Migration on 11/23/2024 at 02:09 PM EDT Sign off status: Pending * Provider: Date: 11/20/2024 Generated for Lisa bangura/Bravo/Annitting on: 11/23/2024 02:09 PM EDT
[2024-11-23 10:40] VITALS: BP 118/68; PULSE 87; O2SAT 98; BMI 46.5
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
--- OUTSIDE RECORDS SUMMARY | 2024-11-23 14:09 | XMS_ITS | Clinical Summary ---
Author Organization [facility] [address] [place] [address] [place] [phone] Phone Care Team Providers Care Business Development Director Name Role Phone Dileep Peterson MD Primary Care Provider [phone] Allergies Active Allergy Reactions Criticality Noted Date Comments Carbamazepine High 04/12/2014 Loss white cells / Tegretol Dulaglutide Itching 07/08/2019 Medications atorvastatin (LIPITOR) 40 mg tablet Take 1 Tablet by mouth daily. 3 Active FREESTYLE LANCETS MISC Use to test blood sugars twice a day *Freestyle* 8 Active blood sugar diagnostic (FreeStyle Lite Strips) test strip Use to test blood sugars twice a day freestyle* * 8 Active blood-glucose meter kit Use to test blood sugars twice a day freestyle* * 8 Active pen needle, diabetic (Lite Touch Insulin Pen [place]) 29 gauge x 1/2 needle Used with lantus. 1 Active lisinopriL (PRINIVIL,ZESTRIL) 2.5 mg tablet Take 1 Tablet by mouth daily. 3 Active OLANZapine (ZyPREXA) 2.5 mg tablet Take 1 Tab by mouth at bedtime for 30 days. 9 Active topiramate (TOPAMAX) 100 mg tablet Take 1 Tablet by mouth 2 Times Daily. 3 Active pantoprazole (PROTONIX) 20 mg EC tablet Take 1 tablet (20 mg total) by mouth 1 (one) time each day before breakfast. 5 Active FeroSuL 325 mg (65 mg iron) tablet Take 1 tablet (325 mg total) by mouth every other day. 5 Active semaglutide (Ozempic) 2 mg/dose (8 mg/3 mL) injection penIndications:Diab etes mellitus type 2 with neurological manifestations ([facility] V24, [facility] V28) Inject 2 mg under the skin every 7 (seven) days. 3 mL 5 Active pen needle, diabetic (BD Ultra-Fine Short Pen Needle) 31 gauge x 5/16 needleIndications:D iabetes mellitus type 2 with neurological manifestations ([facility] V24, [facility] V28) Inject 1 Each into the skin daily. 100 each 5 Active metFORMIN (GLUCOPHAGE) 1,000 mg tabletIndications:D iabetes mellitus type 2 with neurological manifestations ([facility] V24, [facility] V28) Take 1 tablet (1,000 mg total) by mouth 2 (two) times a day with meals. 60 each 5 Active insulin glargine (Lantus Solostar U-100 Insulin) 100 unit/mL (3 mL) injection penIndications:Diab etes mellitus type 2 with neurological manifestations ([facility] V24, [facility] V28) Inject 64 Units under the skin 1 (one) time each day. 45 mL 5 Active empagliflozin (Jardiance) 25 mg tabletIndications:D iabetes mellitus type 2 with neurological manifestations ([facility] V24, [facility] V28) Take 1 Tablet by mouth daily. 90 tablet 3 5 Active Active Problems Problem Noted Date Diagnosed Date Morbid obesity with BMI of 4 5.0-49.9, adult ([facility] V24, [facility] V28) 12/18/2023 Polyneuropathy 06/05/2017 Diabetes mellitus type 2 wit h neurological manifestations ([facility] V24, [facility] V28) 04/17/2017 Brief reactive psychosis ([facility] V24, [facility] V 28) 03/27/2017 Obstructive sleep apnea 11/15/2016 Overview (12/18/2023): [facility] Home Polysomnogram: Date 11/08/2016; AHI 94, [...] hypothyroidism 11/10/2014 Nightmares 04/12/2014 Seizure disorder ([facility] V24, [facility] V28) 05/2014 Encounters Date Type Department Care Team Description 10/06/2024 11:15 AM EDT Office Visit [address] [id number] Aleksandra Diaz PA Diabetes mellitus type 2 with neurological manifestations ([facility] V24, [facility] V28) (Primary Dx); Pure hypercholesterolemia from Last 3 Months Immunizations Name Administration Dates Next Due Moderna SARS-CoV-2 COVID-19, mRNA, LNP-S, preservative free 01/24/2021,06/09/2020,05/12/2020 Pneumococcal polysaccharide 23 valent (Pneumovax 23) 2yo and older 08/13/2021 Tdap Tetanus diptheria acell ular pertussis (Boostrix; Adacel) 7yo and older 10/26/2014 Surgical History Surgery Date Site/Laterality Comments OTHER SURGICAL HISTORY PROCEDURE: MS REPAIR PRIMARY OPEN/PRQ RUPTURED ACHILLES TENDON COLONOSCOPY 03/13/2015 PROCEDURE: HISTORICAL COLONOSCOPY; COMMENT: [facility] - sigmoid tics, internal hems; o/w normal to TI ANKLE SURGERY 2014 PROCEDURE: HISTORICAL ANKLE SURGERY Medical History Medical History Date Comments Seizure disorder ([facility] V2 4, [facility] V28) 04/12/2014 DX:Seizure disorder (HCC) Morbid obesity with BMI of 4 5.0-49.9, adult ([facility] V24, [facility] V28) 03/11/2017 DX:Morbid obesity wit h BMI of 45.0-49.9, adult (HCC) Diabetes mellitus type 2 wit h neurological manifestations ([facility] V24, [facility] V28) 04/17/2017 DX:Diabetes mellitus type 2 with neurological manifestations ([facility]) Polyneuropathy 06/05/2017 DX:Polyneuropath y Brief reactive psychosis ([facility] V24, [facility] V28) 03/27/2017 DX:Brief reactive psychosis ([facility]) Chronic ankle pain 05/30/2015 DX:Chronic an kle pain History of hydrocephalus as a child 11/02/2015 DX:History of hydrocephalus as a child; COMMENT: CT head 2011 shows break in the ventricular catheter at the level of the calvarium Nightmares 04/12/2014 DX:Nightmares Obstructive sleep apnea 11/15/2016 DX:Obstr uctive sleep apnea; COMMENT: [facility] Home Polysomnogram: Date 11/08/2016; AHI 94, [...] Sign Reading Time Taken Comments Blood Pressure 110/78 10/06/2024 11:31 AM EDT C Pulse 74 10/06/2024 11:31 AM EDT Temperature 36 C (96.8 F) 10/06/2024 11:31 AM EDT Respiratory Rate - - Oxygen Saturation - - Inhaled Oxygen Concentration - - Weight 153 kg (336 lb 6.4 oz) 10/06/2024 11:31 A M EDT Height 180.3 cm (5' 11 ) 10/06/2024 11:31 AM EDT Body Mass Index 46.92 10/06/2024 11:31 AM EDT Plan of Treatment Upcoming Encounters Date Type Department Care Team (Late st Contact Info) Description 01/06/2025 8:45 AM EDT Office Visit Endocrinology - [facility] [address] [place] [phone] Aleksandra Diaz PA [address] [place] [address] Health Maintenance Due Date Last Done Comments Diabetes: Annual Foot Exam 1980 Diabetes: Annual Retina Eye Exam 1980 Hepatitis B Vaccines (1 of 3 - 19+ 3-dose series) 1989 HIV Screening 02/16/2022 Social Influencers of Health Screening 02/16/2022 Pneumococcal Vaccine: 50+ Years (2 of 2 - PCV) 08/13/2022 08/13/2021 Depression Screening 03/10/2024 DTaP,Tdap,and Td Vaccines (2 - Td or Tdap) 10/26/2024 10/26/2014 Influenza Vaccine (#1) 2024 , 12/14/2022, 02/26/2019 Colorectal Cancer Screening: Colonoscopy 03/13/2025 03/13/2015 Diabetes: Blood Sugar Control Test (HGBA1C) 04/08/2025 10/06/2024, 07/17/2023, 07/17/2023, Additional history exists Diabetes: Annual Urine Albumin-Creatinine Ratio (uACR) 10/06/2025 10/06/2024, 07/17/2023, 02/26/2019 Diabetes: Annual GFR (Glomerular Filtration Rate) 10/06/2025 10/06/2024, 07/17/2023, 07/17/2023, Additional history exists Cholesterol Screening (Lipid Panel) 10/06/2029 10/06/2024, 07/17/2023, 07/17/2023, Additional history exists Hepatitis C Screening Completed 12/28/2021 Zoster Vaccines Completed 06/26/2023, 12/14/2022 COVID-19 Vaccine Completed 12/09/2023, , 01/24/2021, Additional history exists HIB Vaccines Aged Out No longer eligi [...] 20 months Aged Out No longer eligible based on patient's age to complete this topic Varicella Vaccines Aged Out No longer eligible based on patient's age to complete this topic Procedures Procedure Name Priority Date/Time Associated Diagnosis Comments HEMOGLOBIN A1C Routine 10/06/2024 12:18 PM EDT Diabetes mellitus type 2 with neurological manifestations (CMS/HCC V24, CMS/HCC V28) LIPID PANEL WITH REFLEX TO DIRECT LDL Routine 10/06/2024 12:18 PM EDT Diabetes mellitus type 2 with neurological manifestations (CMS/HCC V24, CMS/HCC V28) MICROALBUMIN CREATININE URINE RATIO Routine 10/06/2024 12:18 PM EDT Diabetes mellitus type 2 with neurological manifestations (CMS/HCC V24, CMS/HCC V28) BASIC METABOLIC PANEL Routine 10/06/2024 12:18 PM EDT Diabetes mellitus type 2 with neurological manifestations (CMS/HCC V24, CMS/HCC V28) POC GLUCOSE Routine 10/06/2024 11:40 AM EDT Diabetes mellitus type 2 with neurological manifestations (CMS/HCC V24, CMS/HCC V28) HEPATITIS C SCREENING Routine 12/28/2021 COLONOSCOPY Routine 03/13/2015 from Last 3 Months or Most Recently Relevant to Health Maintenance Results * (ABNORMAL) Lipid panel with reflex to direct LDL (10/06/2024 12:18 PM EDT) Cholesterol 126 0 - 200 mg/dL LAB CHEMISTRY METHOD 10/06/2024 4:43 PM EDT [facility] Triglycerides 182(H) 0 - 150 mg/dL LAB CHEMISTRY METHOD 10/06/2024 4:43 PM EDT [facility] HDL 32(L) >=40 mg/dL LAB CHEMISTRY METHOD 10/06/2024 4:43 PM EDT [facility] LDL Calculated 58 0 - 100 mg/dL LAB CHEMISTRY METHOD 10/06/2024 4:43 PM EDT [facility] VLDL Cholesterol Bossman 36.4 mg/dL LAB CHEMISTRY METHOD 10/06/2024 4:43 PM EDT [facility] Non HDL Chol. (LDL+VLDL) 94 <145 mg/dL LAB CHEMISTRY METHOD 10/06/2024 4:43 PM EDT [facility] Chol/HDL Ratio 3.9 0.0 - 4.4 LAB CHEMISTRY METHOD 10/06/2024 4:43 PM EDT [facility] Blood Venous blood specimen / Unknown Venipuncture / Unknown 10/06/2024 12:18 PM EDT 10/06/2024 12:18 PM EDT us Aleksandra [place] LAB BLOOD ORDERABLES Final Result [facility] [address] [place] [address], [place] [phone] * Microalbumin creatinine urine ratio (10/06/2024 12:18 PM EDT) Creatinine, Urine 78.0 mg/dL LAB CHEMISTRY METHOD 10/06/2024 4:30 PM EDT [facility] Microalb, Ur 21.3 0.0 - 29.0 mg/L LAB CHEMISTRY METHOD 10/06/2024 4:30 PM EDT [facility] Microalb/Creat Ratio 27 <30 mg/g creat LAB CHEMISTRY METHOD 10/06/2024 4:30 PM EDT [facility] Urine Urine specimen from urethra / Unknown Non-blood Collection / Unknown 10/06/2024 12:18 PM EDT 10/06/2024 12:18 PM EDT us Aleksandra [place] LAB URINE ORDERABLES Final Result Performing Organization Address [facility]/ZIP Co de Phone Number [facility] [address] [place] [address], [place] [phone] * (ABNORMAL) Hemoglobin A1c (10/06/2024 12:18 PM EDT) Hemoglobin A1C 9.1(H) <6.5 % LAB CHEMISTRY METHOD 10/06/2024 8:39 PM EDT [facility] Mean Bld Glu Estim. 214 mg/dL LAB CHEMISTRY METHOD 10/06/2024 8:39 PM EDT [facility] Blood Venous blood specimen / Unknown Venipuncture / Unknown 10/06/2024 12:18 PM EDT 10/06/2024 12:18 PM EDT us Aleksandra [place] LAB BLOOD ORDERABLES Final Result [facility] [address] [place] [address], [place] [phone] * (ABNORMAL) Basic metabolic panel (10/06/2024 12:18 PM EDT) Sodium 138 133 - 145 mmol/L LAB CHEMISTRY METHOD 10/06/2024 4:41 PM [facility] Potassium 4.1 3.5 - 5.5 mmol/L LAB CHEMISTRY METHOD 10/06/2024 4:41 PM [facility] Chloride 108 96 - 110 mmol/L LAB CHEMISTRY METHOD 10/06/2024 4:41 PM [facility] CO2 23 21 - 32 mmol/L LAB CHEMISTRY METHOD 10/06/2024 4:41 PM [facility] Anion Gap 7 3 - 11 LAB CHEMISTRY METHOD 10/06/2024 4:41 PM [facility] Glucose 163(H) 70 - 100 mg/dL LAB CHEMISTRY METHOD 10/06/2024 4:41 PM [facility] BUN 20 5 - 25 mg/dL LAB CHEMISTRY METHOD 10/06/2024 4:41 PM [facility] Creatinine 0.78 0.70 - 1.30 mg/dL LAB CHEMISTRY METHOD 10/06/2024 4:41 PM [facility] eGFR 106 >=60 mL/min/1. 73m2 LAB CHEMISTRY METHOD 10/06/2024 4:41 PM [facility] Comment:Calculation based on the Chronic Kidney Disease Epidemiology Collaboration (CKD-EPI) equation refit without adjustment for race. BUN/Creatinine Ratio 25.6 LAB CHEMISTRY METHOD 10/06/2024 4:41 PM [facility] Calcium 9.5 8.5 - 10.5 mg/dL LAB CHEMISTRY METHOD 10/06/2024 4:41 PM [facility] Blood Venous blood specimen / Unknown Venipuncture / Unknown 10/06/2024 12:18 PM EDT 10/06/2024 12:18 PM EDT Aleksandra [place] [facility] BLOOD ORDERABLES Final Result [facility] [address] [place] [address], * POC glucose manually resulted (10/06/2024 11:40 AM EDT) Glucose POC 168 mg/dL Comment:non fasting Blood Capillary blood specimen / Unknown 10/06/2024 11:40 AM EDT Aleksandra [place] POINT OF CARE TEST ENTER/ED IT ORDERABLES Final Result * Hepatitis C Screening (12/28/2021) Hepatitis C Screening Abstracted Historical Provider HEALTH MAINTENANCE Final Result * Colonoscopy (03/13/2015) Colonoscopy No Interpretation , Abstracted Anatomical Region Laterality Modality Other Historical Provider HEALTH MAINTENANCE Final Result from Last 3 Months or Most Recently Relevant to Health Maintenance Insurance [facility] Care Teams Business Development Director Relationship Specialty Start Date End Date Dileep Peterson MD [address] [place] [address] PCP - General Internal Medicine 07/16/21
--- OUTSIDE RECORDS SUMMARY | 2024-11-23 14:09 | XMS_ITS | Clinical Summary ---
Author Organization [facility] Address [address] [place] [address] Care Team Providers Care Electronic Technologist Name Role Phone Unavailable Primary Care Provider [...] complication, without long-term current use of insulin ([facility]) Use to check blood sugar twice a day. DX-E11.49. NIDDM 6 Active SITagliptin-metform in (JANUMET) 50-1,000 mg per tabletIndications:T ype 2 diabetes mellitus with other specified complication, unspecified whether snf insulin use ([facility]) Take 1 Tablet by mouth 2 (two) times daily with a meal DXE11.69Pl sarai on hold 180 Tablet 1 Active insulin glargine (LANTUS SOLOSTAR U-100 INSULIN) 100 unit/mL (3 mL)Indications:Type 2 diabetes mellitus with other specified complication, unspecified whether middle or intermediate school principal insulin use ([facility]) Inject 30 Units into the skin nightly at bedtime APPT required for further refills DXE11.69 9 mL 1 1 Active lisinopriL 2.5 mg tabletIndications:T ype 2 diabetes mellitus without complication, without long-term current use of insulin ([facility]) Take 1 Tab by mouth every morning 90 Tablet 1 2 Active BD ULTRA-FINE RONA PEN NEEDLE 32 gauge x ndleIndications:Typ e 2 diabetes mellitus with other specified complication, unspecified whether snf insulin use ([facility]) Use to inject insulin 1 TIME A DAY DIRECTED.DXE 11.69 100 Each 2 Active topiramate (TOPAMAX) 100 mg tabletIndications:S eizure disorder ([facility]) Take 1 Tab by mouth 2 [...] disorder, mixed t ype, with bizarre content ([facility]) 05/27/2019 Type 2 diabetes mellitus wit hout complication, without long-term current use of insulin ([facility]) 03/19/2019 Mixed hyperlipidemia 03/19/2019 Elevated liver function tests 04/24/2018 Polyneuropathy 06/05/2017 Type 2 diabetes mellitus wit h neurological manifestations ([facility]) 04/17/2017 Brief reactive psychosis ([facility]) 018 Morbid obesity with body mas s index of 45.0-49.9 in adult ([facility]) 03/11/2017 Obstructive sleep apnea 11/15/2016 Overview (02/26/2019): [facility] Home Polysomnogram: Date 11/08/2016; AHI 94, [...] 05/30/2015 Abnormal thyroid exam 11/10/2014 Seizure disorder ([facility]) 04/12/2014 Nightmares 04/12/2014 Immunizations Immunization Administration Dates [...] - PCV) 08/13/202208/13 Hypertension Screening (#1) 06/21/2023 Alcohol and Drug Screen 03/10/2024 02/26/2019 Depression Annual Screen 03/10/2024 05/11/2019 Imm-DTaP/Tdap/Td (2 - Td or Tdap) 10/26/2024 015 [id number] ( season) 2024 01/24/2021, 06/09/2020, 05/12/2020 Imm-Influenza (#1) 2024 05/19/2020, 02/26/2019 Procedures Procedure Name Priority Date/Time Associated Diagnosis Comments HEMOGLOBIN GLYCOSYLATED A1C Routine 01/28/2020 9:42 AM EST Type 2 diabetes mellitus with other specified complication, unspecified whether middle or intermediate school principal insulin use ([facility]) REFERRAL TO PODIATRY Routine 09/30/2019 12:00 AM EDT Type 2 diabetes mellitus with other specified complication, unspecified whether middle or intermediate school principal insulin use ([facility]) COMPREHENSIVE METABOLIC PANEL Routine 02/26/2019 3:52 PM EST Elevated liver function tests LIPID PANEL Routine 02/26/2019 3:52 PM EST Pure hypercholesterolemia MICROALBUMIN/CREATI NINE RATIO, URINE, RANDOM Routine 02/26/2019 3:48 PM EST Type 2 diabetes mellitus with neurological manifestations ([facility]) from Last 3 Months or Most Recently Relevant to Health Maintenance Results * (ABNORMAL) HEMOGLOBIN, GLYCOSYLATED (A1C) (01/28/2020 9:42 AM EST) GLYCATED HEMOGLOBIN A1C 7.4(H) <6.5 % [facility] ESTIMATED AVERAGE GLUCOSE 166 mg/dL [facility] 01/28/2020 9:42 AM EST 01/28/2020 3:47 PM EST Narrative [employer] [facility] - 01/28/2020 7:51 PM EST [employer], [place] [address] Iap Displays [place] [id number] ORD# [id number] Chma Provider Default LAB - BLOOD DRAW Final Res ult Performing Organization Address [facility]/ZIP Co de Phone Number [address] [address], [place] [phone] * REFERRAL PODIATRY (09/30/2019 12:00 AM EDT) 09/30/2019 Luz Hopper PharmD REFERRAL Final Resul t * (ABNORMAL) LIPID PANEL (02/26/2019 3:52 PM EST) CHOLESTEROL 125 0 - 200 mg/dL [facility] TRIGLYCERIDES 162(H) 0 - 150 mg/dL [facility] HDL CHOLESTEROL 27(L) >40 mg/dL [facility] LDL CALCULATED 66 0 - 100 mg/dL [facility] TC-HDLC RATIO 4.6(H) 0 - 4.4 mg/dL [facility] Blood specimen (specimen) Blood / Unknown 02/26/2019 3:52 PM EST 02/26/2019 4:12 PM EST Narrative [facility] - 02/26/2019 6:50 PM EST [facility] [employer], a member of [address] [address] Iap Displays [place] [id number] ORD# [id number] Yong Alvarez PA-C, [facility] - BLOOD DRAW Edited Result - Final Performing Organization Address City/[facility]/ZIP Co de Phone Number [address] [address], [place] [phone] * (ABNORMAL) COMPRE METAB PANEL (02/26/2019 3:52 PM EST) GLUCOSE 264(H) 70 - 100 mg/dL [facility] Comment:Reference range appl icable to fasting specimens only BUN 15 5 - 25 mg/dL [facility] CREAT 0.86 0.7 - 1.3 mg/dL [facility] GLOMERULAR FILTRATION RATE > 60 [facility] Comment: If patient is -Azerbaijani, multiply result by 1.21 Chronic Kidney Disease: < 60 ml/min/1.73 square meters Kidney Failure: < 15 ml/min/1.73 square meters SODIUM 136 135 - 145 mEq/L [facility] POTASSIUM 4.0 3.5 - 5.5 mmol/L [facility] CHLORIDE 101 96 - 110 mmol/L [facility] CO2 30 21 - 32 mmol/L [facility] ANION GAP 5 3 - 11 [facility] CALCIUM 9.0 8.5 - 10.5 mg/dL [facility] TOTAL PROTEIN 7.8 6.0 - 8.0 G/dL [facility] ALBUMIN 3.5 3.2 - 5.0 G/dL [facility] BILI, TOTAL 0.6 0.0 - 1.4 mg/dL [facility] SGOT 55(H) 10 - 42 U/L [facility] SGPT 61(H) 10 - 60 U/L [facility] ALK PHOS 143(H) 42 - 121 U/L [facility] Blood specimen (specimen) Blood / Unknown 02/26/2019 3:52 PM EST 02/26/2019 4:12 PM EST Narrative [facility] - 02/26/2019 6:50 PM EST [employer], [place] [address] Iap Displays [place] [id number] ORD# [id number] Yong Alvarez PA-C, [facility] - BLOOD [place]RAW [place] [address], * MICROALBUMIN/CREATININE RATIO, URINE, RANDOM (02/26/2019 3:48 PM EST) CREATININE, RANDOM URINE 191 mg/dL [facility] MICROALBUMIN, RANDOM 24.6 0.0 - 29.0 mg/L [facility] MICROALB/CRE RATIO RANDOM 12.8 0.0 - 30.0 mg/G [facility] Urine specimen (specimen) Urine specimen / Unknown 02/26/2019 3:48 PM EST 02/26/2019 4:12 PM EST Narrative [facility] - 02/26/2019 7:12 PM EST [employer], a member of [address] [address] Iap Displays Analyst [place] [id number] ORD# [id number] Yong Alvarez PA-C, [facility] URINE AMBULATORY Narinder eileen Result - Final [address] [address], from Last 3 Months or Most Recently Relevant to Health Maintenance Insurance [employer] [facility] [id number]
--- OUTSIDE RECORDS SUMMARY | 2024-11-23 14:09 | XMS_ITS | Patient Health Record ---
Author Organization [facility] Address [address] [place] [address] Care Team Providers Care Maint Mechanic Name Role Phone NO, PCP Primary Care Provider Miriam Mann Unavailable [phone] Migration, Provider Unavailable Unavailable Allergies Allergen (clinical drug ingredient) Drug/Non Drug Allergy documented on EMR Reaction Allergy Type Onset Date Status carbamazepine TEGretol Unknown Drug Allergy Act denia Reason For Referral No Information Medications Medication SIG (Take, Route, Frequency, Duration) Notes Start Date End Date Status Topiramate *Please review a nd pick correct strength-formulatio n from Medispan options. If intended option is not shown, discontinue and re-order from Quick Search* Active Amoxicillin 875 MG 1 tab(s) orally every 12 hours for 7 days 06/17/2022 Active Lisinopril *Please review a nd pick correct strength-formulatio n from Medispan options. If intended option is not shown, discontinue and re-order from Quick Search* Active metFORMIN HCl *Please review a nd [...] Active Encounters Encounter Location Date Provider Diagnosis [facility] [address] [place] [address] 11/20/2024 Provider Migration Plan Of Treatment No Information Insurance Providers Payer Name Payer Address Payer Phone Subscriber Number Group Number Insured Name Patient Relationship to Insured Coverage Start Date Coverage End Date [facility]ly [facility] [address] [place] [id number] Luis Antonio Arita Self - patient is the insured 2 Medical (General) History Medical History History ICD Code Diabetes type II Epilepsy / Seizures Hydrocephalus at L ankle surgery (6 pins placed, broken a nkle)
== END 2024-11-23 11:15 | disposition home or self-care (01) ==
LOC: HO.HSMS 10:39
PROVIDERS: PCP Internal Medicine; Visit Provider Physician Assistant Medical
DX: G47.33 Obstructive sleep apnea (adult) (pediatric) (principal); G47.34 Idiopathic sleep related nonobstructive alveolar hypoventilation; D50.9 Iron deficiency anemia, unspecified
CPT/HCPCS: 99214

== ENCOUNTER → 2024-11-23 10:38 | Outpatient (BNVA) | payer OTHER, SELFPAY | PROVIDERS: PCP Internal Medicine; Visit Provider Physician Assistant Medical | DX: G47.33 Obstructive sleep apnea (adult) (pediatric) (principal); G47.34 Idiopathic sleep related nonobstructive alveolar hypoventilation; D50.9 Iron deficiency anemia, unspecified; R53.83 Other fatigue; G47.9 Sleep disorder, unspecified | CPT/HCPCS: 99212 ==

== ENCOUNTER 2024-12-10 10:59 | Outpatient (AMB) | payer OTHER, SELFPAY ==
--- OUTSIDE RECORDS SUMMARY | 2024-11-20 17:00 | XMS_ITS ---
Author Organization [facility] Address [address] [facility] [address] Care Team Providers Care Kennel Worker Name Role Phone NO, PCP Primary Care Provider [phone] Miriam Mann Unavailable [phone] Migration, Provider Unavailable Unavailable Allergies Allergen (clinical drug ingredient) Drug/Non Drug Allergy documented on EMR Reaction Allergy Type Onset Date Status carbamazepine TEGretol Unknown Drug Allergy Act denia [facility] Encounter Medications Medication SIG (Take, Route, [...] Active Encounters Encounter Location Date Provider Diagnosis [facility] [address] [place] [address] 11/20/2024 Provider Migration Plan Of Treatment Medication Medication Name Sig Start Date Stop Date Notes Amoxicillin 875 MG 1 tab(s) orally ever y 12 hours for 7 days 06/17/2022 Progress Notes * Luis Antonio DE LOS SANTOSDOB:[birth year] (54 yo M)Acc No.[id number]:11/20/2024 Patient: Luis Antonio DOBBINS Provider: :1970 A ge:54 Y S ex:Male Date:11/20/2024 Address: [address], [address] [facility], [facility] Pcp:PCP NO Subjective: * Chief Complaints: * [...] Electronic signature of Prov ider Migration on 12/10/2024 at 12:16 PM EDT Sign off status: Pending * Provider: Date: 0 11/20/2024 Generated for Lisa bangura/Bravo/Griselda on: 1 12:16 PM EDT
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
[2024-12-10 11:04] VITALS: BP 118/68; PULSE 79; RESP 16; TEMP 36.7; O2SAT 97; BMI 47.8
--- OUTSIDE RECORDS SUMMARY | 2024-12-10 12:17 | XMS_ITS | Clinical Summary ---
Author Organization [facility] [address] [place] [address] [place] [phone] Phone Care Team Providers Care Hearing Screen Coordinator Name Role Phone Dileep Peterson MD Primary Care Provider [phone] Allergies Active Allergy Reactions Criticality Noted Date [...] sugars twice a day freestyle 8 Active pen needle, diabetic (Lite Touch Insulin Pen [place]) 29 gauge x 1/2 needle Used with [...] by mouth every other day. 5 Active pen needle, diabetic (BD Ultra-Fine Short Pen Needle) 31 gauge x 5/16 needleIndications: Diabetes mellitus type 2 with neurological manifestations ([facility] V24, [facility] V28) Inject 1 Each into the skin daily. 100 each 5 Active metFORMIN (GLUCOPHAGE) 1,000 mg tabletIndications: Diabetes mellitus type 2 with neurological manifestations ([facility] V24, [facility] V28) Take 1 tablet (1,000 mg total) by mouth 2 (two) times a day with meals. 60 each 5 Active insulin glargine (Lantus Solostar U-100 Insulin) 100 unit/mL (3 mL) injection penIndications:Melissa betes mellitus type 2 with neurological manifestations ([facility] V24, [facility] V28) Inject 64 Units under the skin 1 (one) time each day. 45 mL 5 5 Active empagliflozin (Jardiance) 25 mg tabletIndications: Diabetes mellitus type 2 with neurological manifestations ([facility] V24, [facility] V28) Take 1 Tablet by mouth daily. 90 tablet 3 5 Active tirzepatide (Mounjaro) 5 mg/0.5 mL injection Inject 0.5 mL (5 mg total) under the skin every 7 (seven) days. 2 mL 5 5 Active semaglutide (Ozempic) 2 mg/dose (8 mg/3 mL) injection penIndications:Melissa betes mellitus type 2 with neurological manifestations ([facility] V24, [facility] V28) Inject 2 mg under the skin every 7 (seven) days. 3 mL 5 11/25/19 25 Discontin ued(Formu dom change) Active Problems Problem Noted Date Diagnosed Date Morbid obesity with BMI of 4 5.0-49.9, adult ([facility] V24, [facility] V28) 12/18/2023 Polyneuropathy 06/05/2017 Diabetes mellitus type 2 wit h neurological manifestations ([facility] V24, [facility] V28) 04/17/2017 Brief reactive psychosis ([facility] V24, [facility] V 28) 03/27/2017 Obstructive sleep apnea 11/15/2016 Overview (12/18/2023): SMS Home Polysomnogram: Date 11/08/2016; AHI 94, [...] Subclinical hypothyroidism 11/10/2014 Nightmares 04/12/2014 Seizure disorder ([facility] V24, [facility] V28) 05/2014 Encounters Date Type Department Care Team Description 11/25/2024 Telephone [address]ocr[address] [address] Aleksandra Diaz PA 11/23/2024 Telephone Endocrinology [address] [phone] Aleksandra Diaz PA 10/06/2024 11:15 AM EDT Office Visit [address] [phone] Aleksandra Diaz PA Diabetes mellitus type 2 with neurological manifestations ([facility] V24, [facility] V28) (Primary Dx); Pure hypercholesterolemia from Last 3 Months Immunizations Immunization Administration Dates Next Due Moderna SARS-CoV-2 COVID-19, mRNA, LNP-S, preservative free 01/24/2021,06/09/2020,05/12/2020 Pneumococcal polysaccharide 23 valent (Pneumovax 23) 2yo and older 08/13/2021 Tdap Tetanus diptheria acell ular pertussis (Boostrix; Adacel) 7yo and older 10/26/2014 Surgical History Surgery Date Site/Laterality Comments OTHER SURGICAL HISTORY PROCEDURE: [place] REPAIR PRIMARY OPEN/PRQ RUPTURED ACHILLES TENDON COLONOSCOPY 03/13/2015 PROCEDURE: HISTORICAL COLONOSCOPY; COMMENT: [facility] - sigmoid tics, internal hems; o/w normal to TI ANKLE SURGERY 2014 PROCEDURE: HISTORICAL ANKLE SURGERY Medical History Medical History Date Comments Seizure disorder ([facility] V2 4, [facility] V28) 04/12/2014 DX:Seizure disorder (HCC) Morbid obesity with BMI of 4 5.0-49.9, adult (CMS/HCC V24, CMS/HCC V28) 03/11/2017 DX:Morbid obesity wit h BMI of 45.0-49.9, adult ([facility]) Diabetes mellitus type 2 wit h neurological manifestations (CMS/HCC V24, CMS/[facility] V28) 04/17/2017 DX:Diabetes mellitus type 2 with neurological manifestations ([facility]) Polyneuropathy 06/05/2017 DX:Polyneuropath y Brief reactive psychosis ( S/HCC V24, CMS/[facility] V28) 03/27/2017 DX:Brief reactive psychosis ([facility]) Chronic ankle pain 05/30/2015 DX:Chronic [...] 8:45 AM EDT Office Visit Endocrinology - [place] [address] [place] [phone] Aleksandra Diaz PA [address] [place] [address] Health Maintenance Due Date Last Done Comments [...] 10/06/2029 10/06/2024, 07/17/2023, 07/17/2023, Additional history exists RSV Immunization Adult Patients (1 - 1-dose 75+ series) 2045 Hepatitis C Screening Completed 12/28/2021 Zoster Vaccines [...] mg/dL LAB CHEMISTRY METHOD 10/06/2024 4:43 PM [facility] Triglycerides 182(H) 0 - 150 mg/dL LAB CHEMISTRY METHOD 10/06/2024 4:43 PM T [facility] HDL 32(L) >=40 mg/dL LAB CHEMISTRY METHOD 10/06/2024 4:43 PM [facility] LDL Calculated 58 0 - 100 mg/dL LAB CHEMISTRY METHOD 10/06/2024 4:43 PM [facility] VLDL Cholesterol Bossman 36.4 mg/dL LAB CHEMISTRY METHOD 10/06/2024 4:43 PM [facility] Non HDL Chol. (LDL+VLDL) 94 <145 mg/dL LAB CHEMISTRY METHOD 10/06/2024 4:43 PM EDT [facility] Chol/HDL Ratio 3.9 0.0 - 4.4 LAB CHEMISTRY METHOD 10/06/2024 4:43 PM EDT [facility] Blood Venous blood specimen / Unknown Venipuncture / Unknown 10/06/2024 12:18 PM EDT 10/06/2024 12:18 PM EDT [facility]andra [place] [facility] BLOOD ORDERABLES Final Result [facility] [address] [place] [address], [place] [phone] * Microalbumin creatinine urine ratio (10/06/2024 12:18 PM EDT) Creatinine, Urine 78.0 mg/dL LAB CHEMISTRY METHOD 10/06/2024 4:30 PM EDT [facility] Microalb, Ur 21.3 0.0 - 29.0 mg/L LAB CHEMISTRY METHOD 10/06/2024 4:30 PM EDT [facility] Microalb/Creat Ratio 27 <30 mg/g creat LAB CHEMISTRY METHOD 10/06/2024 4:30 PM EDT [facility] Urine Urine specimen from urethra / Unknown Non-blood Collection / Unknown 10/06/2024 12:18 PM EDT 10/06/2024 12:18 PM EDT us Aleksandra [place] [facility] URINE ORDERABLES Final Result Performing Organization Address City/[facility]/ZIP Co de Phone Number [facility] [address] [place] [address], [place] [phone] * (ABNORMAL) Hemoglobin A1c (10/06/2024 12:18 PM EDT) Hemoglobin A1C 9.1(H) <6.5 % LAB CHEMISTRY METHOD 10/06/2024 8:39 PM [facility] Mean Bld Glu Estim. 214 mg/dL LAB CHEMISTRY METHOD 10/06/2024 8:39 PM [facility] Blood Venous blood specimen / Unknown Venipuncture / Unknown 10/06/2024 12:18 PM EDT 10/06/2024 12:18 PM EDT us Aleksandra [place] [facility] BLOOD ORDERABLES Final Result [facility] [address] [place] [address], * (ABNORMAL) Basic metabolic panel (10/06/2024 12:18 PM EDT) Sodium 138 133 - 145 mmol/L LAB CHEMISTRY METHOD 10/06/2024 4:41 PM [facility] Potassium 4.1 3.5 - 5.5 mmol/L LAB CHEMISTRY METHOD 10/06/2024 4:41 PM [facility] Chloride 108 96 - 110 mmol/L LAB CHEMISTRY METHOD 10/06/2024 4:41 PM [facility] CO2 23 21 - 32 mmol/L LAB CHEMISTRY METHOD 10/06/2024 4:41 PM [facility] Anion Gap 7 3 - 11 LAB CHEMISTRY METHOD 10/06/2024 4:41 PM [facility] Glucose 163(H) 70 - 100 mg/dL LAB CHEMISTRY METHOD 10/06/2024 4:41 PM [facility] BUN 20 5 - 25 mg/dL LAB CHEMISTRY METHOD 10/06/2024 4:41 PM [facility] Creatinine 0.78 0.70 - 1.30 mg/dL LAB CHEMISTRY METHOD 10/06/2024 4:41 PM [facility] eGFR 106 >=60 mL/min/1. 73m2 LAB CHEMISTRY METHOD 10/06/2024 4:41 PM EDT [facility] Comment:Calculation based on the Chronic Kidney Disease Epidemiology Collaboration (CKD-EPI) equation refit without adjustment for race. BUN/Creatinine Ratio 25.6 LAB CHEMISTRY METHOD 10/06/2024 4:41 PM EDT [facility] Calcium 9.5 8.5 - 10.5 mg/dL LAB CHEMISTRY METHOD 10/06/2024 4:41 PM EDT [facility] Blood Venous blood specimen / Unknown Venipuncture / Unknown 10/06/2024 12:18 PM EDT 10/06/2024 12:18 PM EDT Aleksandra [place] [facility] BLOOD ORDERABLES Final Result [facility] [address] [place] [address], * POC glucose manually resulted (10/06/2024 11:40 AM EDT) [facility] Glucose POC 168 mg/dL Comment:non fasting Blood Capillary blood specimen / Unknown 10/06/2024 11:40 AM EDT Aleksandra [place] POINT OF CARE TEST ENTER/ED IT ORDERABLES Final Result * Hepatitis C Screening (12/28/2021) Pathologist [facility] Hepatitis C Screening Abstracted Historical Provider HEALTH MAINTENANCE Final Result * Colonoscopy (03/13/2015) Pathologist [facility] Colonoscopy No Interpretation , Abstracted Anatomical Region Laterality Modality Other Historical Provider HEALTH MAINTENANCE Final Result from Last 3 Months or Most Recently Relevant to Health Maintenance Insurance [facility] Care Teams Hearing Screen Coordinator Relationship Specialty Start Date End Date Dileep Peterson MD [address] [place] [address] PCP - General Internal Medicine 07/16/21
--- OUTSIDE RECORDS SUMMARY | 2024-12-10 12:17 | XMS_ITS | Encounter Summary ---
Author Organization [facility] Address [address] [place] [address] Care Team Providers Care Heat Treater Name Role Phone Dileep Peterson MD Primary Care Provider [phone] Reason for Visit * Reason Onset Date Comments PRIOR AUTHORIZATION 11/23/2024 Encounter Details Date Type Department Care Team (Late st Contact Info) Description 11/23/2024 Telephone Endocrinology - [place] [place] [phone] Aleksandra Diaz PA [address] [facility] [place] [address] Social History Tobacco Use Types Packs/Day Years Used Date Smoking Tobacco: Never Smokeless Tobacco: Never Alcohol Use Standard Drinks/Week Comments No 0 (1 standard drink = 0.6 oz pur e alcohol) Sex and Gender Information Value Date Recorded Sex Assigned at Not on file Legal Sex Male 6:36 PM EST Gender Identity Not on file Sexual Orientation Not on file documented as of this encounter Ordered Prescriptions Prescription Sig Dispense Quantity Refills Last Filled Start Date End Date tirzepatide (Mounjaro) 5 mg/0.5 mL injection Inject 0.5 mL (5 mg total) under the skin every 7 (seven) days. 2 mL 5 11/24/2024 documented in this encounter Progress Notes * VINNIE Alonso - 11/24/2024 9:36 AM EDT Medication changed * Kristine Pitts [place] - 11/24/2024 8:56 AM EDT [employer] is not longer covered ozempic for DM patients the preferred one is Mounjaro .Please Reply Back to [facility] Name Kristine Pitts [facility] Prior Ext: [phone] * Danette Iglesias - 11/23/2024 3:06 PM EDT Endocrine Call Primary endocrine provider: Aleksandra Diaz PA-C Is the endocrine provider in the office toady?: yes Why is the person calling? Prior authorization. Medications or glucose meter supplies. Please routeto prior authorization pool (p [id number]). Prior Authorization for Medication-do not complete and send this encounter unless you have the fax from the pharmacy. Is this a Cover My Meds request: Yes -- [place] Code [id number] Name of Medication Ozempic Dose of Medication 2 MG What is the RX # from the faxed refill? How does patient take this med? Inject 2 mg under the skin every 7 (seven) day s What Pharmacy did the fax come from: [facility] documented in this encounter Plan of Treatment Upcoming Encounters Date Type Department Care Team (Late st Contact Info) Description 01/06/2025 8:45 AM EDT Office Visit Endocrinology [address] [phone] Aleksandra Diaz PA [address] [place] [address] documented as of this encounter Visit Diagnoses Not on filedocumented in this encounter Discontinued Medications Medication Sig Discontinue Reason Start Date End Da te semaglutide (Ozempic) 2 mg/dose (8 mg/3 mL) injection penIndications:Diabetes mellitus type 2 with neurological manifestations (CMS/HCC V24, CMS/HCC V28) Inject 2 mg under the skin every 7 (seven) days. Formulary change 10/06/2024 11/24/2024 documented as of this encounter Care Teams Heat Treater Relationship Specialty Start Date End Date Dileep Peterson MD [address] [place] [id number] PCP - General Internal Medicine 07/16/21 documented as of this encounter
--- OUTSIDE RECORDS SUMMARY | 2024-12-10 12:17 | XMS_ITS | Patient Health Record ---
Author Organization [facility] Address [address] [place] [address] Care Team Providers Care Historiography Teacher Name Role Phone NO, PCP Primary Care Provider [phone] Miriam Mann Unavailable [phone] Migration, Provider Unavailable Unavailable Allergies Allergen (clinical [...] Active Encounters Encounter Location Date Provider Diagnosis [facility] [address] [place] [address] 11/20/2024 Provider Migration Plan Of Treatment No Information Insurance Providers Payer Name Payer Address Payer Phone Subscriber Number Group Number Insured Name Patient Relationship to Insured Coverage Start Date Coverage End Date [facility] [address] [place] [phone] [id number] Luis Antonio Arita Self - patient is the insured 2 Medical (General) History Medical History History ICD Code Diabetes type II Epilepsy / Seizures Hydrocephalus at L ankle surgery (6 pins placed, broken a nkle)
--- OUTSIDE RECORDS SUMMARY | 2024-12-10 12:17 | XMS_ITS | Clinical Summary ---
Author Organization [facility] Address [address] [place] [address] Care Team Providers Care Core Drilling Supervisor Name Role Phone Unavailable Primary Care Provider [...] complication, without long-term current use of insulin Use to check blood sugar twice a day. DX-E11.49. NIDDM 6 Active SITagliptin-metform in (JANUMET) 50-1,000 mg per tabletIndications:T ype 2 diabetes mellitus with other specified complication, unspecified whether skilled nursing insulin use Take 1 Tablet by mouth 2 (two) times daily with a meal DXE11.69Pl sarai on hold 180 Tablet 1 Active insulin glargine (LANTUS SOLOSTAR U-100 INSULIN) 100 unit/mL (3 mL)Indications:Type 2 diabetes mellitus with other specified complication, unspecified whether buttermaker helper insulin use Inject 30 Units into the skin nightly at bedtime APPT required for further refills DXE11.69 9 mL 1 1 Active lisinopriL 2.5 mg tabletIndications:T ype 2 diabetes mellitus without complication, without long-term current use of insulin Take 1 Tab by mouth every morning 90 Tablet 1 2 Active BD ULTRA-FINE RONA PEN NEEDLE 32 gauge x ndleIndications:Typ e 2 diabetes mellitus with other specified complication, unspecified whether skilled nursing insulin use Use to inject insulin 1 TIME A DAY DIRECTED.DXE 11.69 100 Each 2 Active topiramate (TOPAMAX) 100 mg tabletIndications:S eizure disorder Take 1 Tab by mouth 2 (two) [...] chest wall pain 09/01/2019 Delusional disorder, mixed type, with bizarre co ntent 05/27/2019 Type 2 diabetes mellitus wit hout complication, without long-term current use of insulin 03/19/2019 Mixed hyperlipidemia 03/19/2019 Elevated liver function tests 04/24/2018 Polyneuropathy 06/05/2017 Type 2 diabetes mellitus with neurological manif estations 04/17/2017 Brief reactive psychosis 03/27/2017 Morbid obesity with body mass index of 45.0-49.9 in adult 03/11/2017 Obstructive sleep apnea 11/15/2016 Overview (02/26/2019): [facility] Home Polysomnogram: Date 11/08/2016; AHI 94, Unclassified apneas 1; Obstructive apneas 248; Central apneas 5; Mixed apneas 0; hypopneas 177; average oxygen saturation 91% (lowest 75% with saturations <88% for 21% of study) [facility] Polysomnogram treatment study. Date 02/16/2017 . SE [...] 05/30/2015 Abnormal thyroid exam 11/10/2014 Seizure disorder 04/12/2014 Nightmares 04/12/2014 Immunizations Immunization Administration Dates [...] (2 - Td or Tdap) 10/26/2024 015 [id number] ( season) 2024 01/24/2021, 06/09/2020, 05/12/2020 Imm-Influenza (#1) 2024 05/19/2020, 02/26/2019 Procedures Procedure Name Priority Date/Time Associated Diagnosis Comments HEMOGLOBIN GLYCOSYLATED A1C Routine 01/28/2020 9:42 AM EST Type 2 diabetes mellitus with other specified complication, unspecified whether skilled nursing insulin use ([facility]) REFERRAL TO PODIATRY Routine 09/30/2019 12:00 AM EDT Type 2 diabetes mellitus with other specified complication, unspecified whether skilled nursing insulin use ([facility]) COMPREHENSIVE METABOLIC [...] EST) GLYCATED HEMOGLOBIN A1C 7.4(H) <6.5 % [facility] ESTIMATED AVERAGE GLUCOSE 166 mg/dL [facility] 01/28/2020 9:42 AM EST 01/28/2020 3:47 PM EST [facility]ative [facility] 01/28/2020 7:51 PM EST [employer], [place] [address] [employer] Press [place] [id number] ORD# [id number] us [facility] Provider Default LAB - BLOOD DRAW [place] [address], * REFERRAL PODIATRY (09/30/2019 12:00 AM EDT) 09/30/2019 Luz Gabriel Hopper PharmD REFERRAL Final Resul t * (ABNORMAL) LIPID PANEL (02/26/2019 3:52 PM EST) CHOLESTEROL 125 0 - 200 mg/dL [facility] TRIGLYCERIDES 162(H) 0 - 150 mg/dL [facility] HDL CHOLESTEROL 27(L) >40 mg/dL [facility] LDL CALCULATED 66 0 - 100 mg/dL [facility] TC-HDLC RATIO 4.6(H) 0 - 4.4 mg/dL [facility] Blood specimen (specimen) Blood / Unknown 02/26/2019 3:52 PM EST 02/26/2019 4:12 PM EST Narrative [facility] - 02/26/2019 6:[address] [facility], [place] [address] [employer] Press [place] [id number] ORD# [id number] Yong Alvarez PA-C, [facility] - BLOOD DRAW Edited Result - Final Performing Organization Address City/State/[facility] [place] [address], * (ABNORMAL) COMPRE METAB PANEL (02/26/2019 3:52 PM EST) GLUCOSE 264(H) 70 - 100 mg/dL [facility] Comment:Reference range appl icable to fasting specimens only BUN 15 5 - 25 mg/dL [facility] CREAT 0.86 0.7 - 1.3 mg/dL [facility] GLOMERULAR FILTRATION RATE > 60 [facility] Comment: If patient is -Central African, multiply result by 1.21 Chronic Kidney Disease: < 60 ml/min/1.73 square meters Kidney Failure: < 15 ml/min/1.73 square meters SODIUM 136 135 - 145 mEq/L [facility] POTASSIUM 4.0 3.5 - 5.5 mmol/L [facility] CHLORIDE 101 96 - 110 mmol/L [facility] CO2 30 21 - 32 mmol/L [facility] ANION GAP 5 3 - 11 [facility] CALCIUM 9.0 8.5 - 10.5 mg/dL [facility] TOTAL PROTEIN 7.8 6.0 - 8.0 G/dL [facility] ALBUMIN 3.5 3.2 - 5.0 G/dL [facility] BILI, TOTAL 0.6 0.0 - 1.4 mg/dL [facility] SGOT 55(H) 10 - 42 U/L [facility] SGPT 61(H) 10 - 60 U/L [facility] ALK PHOS 143(H) 42 - 121 U/L [facility] Blood specimen (specimen) Blood / Unknown 02/26/2019 3:52 PM EST 02/26/2019 4:12 PM EST Narrative [facility] - 02/26/2019 6:[address] [facility], [place] [address] [employer] Operator [place] [id number] ORD# [id number] Yong Alvarez PA-C, [facility] - BLOOD DRAW [place] [address], * MICROALBUMIN/CREATININE RATIO, URINE, RANDOM (02/26/2019 3:48 PM EST) CREATININE, RANDOM URINE 191 mg/dL [facility] MICROALBUMIN, RANDOM 24.6 0.0 - 29.0 mg/L [facility] MICROALB/CRE RATIO RANDOM 12.8 0.0 - 30.0 mg/G [facility] [employer] [facility] Urine specimen (specimen) Urine specimen / Unknown 02/26/2019 3:48 PM EST 02/26/2019 4:12 PM EST Narrative [facility] - 02/26/2019 7:12 PM EST [employer], [place] [address] [employer] [place] [id number] ORD# [id number] us Yong Alvarez PA-C, [facility] URINE AMBULATORY Narinder eileen Result - Final [facility] [employer] [place] [address], from Last 3 Months or Most Recently Relevant to Health Maintenance Insurance [employer] [facility]
== END 2024-12-10 11:20 | disposition home or self-care (01) ==
LOC: HO.HMCC 11:00
PROVIDERS: PCP Internal Medicine; Visit Provider Internal Medicine
DX: E11.8 Type 2 diabetes mellitus with unspecified complications (principal); E66.01 Morbid (severe) obesity due to excess calories; Z68.42 Body mass index [BMI] 45.0-49.9, adult; Z79.4 Long term (current) use of insulin; G40.909 Epilepsy, unspecified, not intractable, without status epilepticus; E78.9 Disorder of lipoprotein metabolism, unspecified; F99 Mental disorder, not otherwise specified; G47.33 Obstructive sleep apnea (adult) (pediatric)

== ENCOUNTER 2024-12-10 10:59 | Outpatient (REF) | payer OTHER, SELFPAY ==
[2024-12-10 13:31] LABS: MANUAL DIFF FLAG NO
[2024-12-10 13:57] LABS: Hematocrit 40.0 % (42.0-52.0); Hemoglobin 12.7 g/dl (14.0-18.0); Imm Gran Abs Auto 0.06 X10*3/uL (0.00-0.03); Imm Gran Pct Auto 0.6 % (0.0-0.4); Lymphocytes Absolute Auto 1.1 X10*3/uL (1.2-4.9); Mean Corpuscular HGB Conc 31.8 g/dl (31.0-36.0); Mean Corpuscular Hemoglobin 29.7 pg (27.0-33.0); Mean Corpuscular Volume 93.7 fL (80.0-98.0); NRBC Abs Auto 0.000 X10*3/uL (0.0-0.012); NRBC Pct Auto 0.0 /100WBC (0.0-0.2); Platelet Count 235 X10*3/uL (160-400); Red Blood Count 4.27 X10*6/uL (4.60-5.80); White Blood Count 10.1 X10*3/uL (4.8-10.8)
[2024-12-10 14:23] LABS: Alanine Aminotransferase 42 U/L (0-40); Albumin Level 4.2 g/dL (3.5-5.0); Alkaline Phosphatase 135 U/L (39-117); Anion Gap 11 (12-20); Aspartate Amino Transferase 47 U/L (5-37); Blood Urea Nitrogen 19 mg/dL (9-16); Calcium 9.2 mg/dL (8.4-10.2); Carbon Dioxide 25 mmol/L (22-29); Chloride 107 mmol/L (96-108); Estimated Glomerular Filt Rate > 60; Potassium 3.9 mmol/L (3.3-5.1); Sodium 139 mmol/L (135-145); Total Protein 7.4 g/dL (6.5-8.0)
[2024-12-10 15:19] LABS: Free T4 (Free Thyroxine) 0.85 ng/dL (0.71-1.85)
== END 2024-12-10 11:00 | disposition home or self-care (01) ==
LOC: HO.HMGCLDS 10:59
PROVIDERS: PCP Internal Medicine; Visit Provider Internal Medicine
DX: E11.8 Type 2 diabetes mellitus with unspecified complications (principal); E78.9 Disorder of lipoprotein metabolism, unspecified; F99 Mental disorder, not otherwise specified; E66.01 Morbid (severe) obesity due to excess calories; G40.909 Epilepsy, unspecified, not intractable, without status epilepticus; G47.33 Obstructive sleep apnea (adult) (pediatric); Z79.4 Long term (current) use of insulin
CPT/HCPCS: 36415; 80053; 82043; 82570; 83036; 83721; 84439; 84443; 85025; 96127; 99212

== ENCOUNTER 2025-01-26 14:02 | Outpatient (AMB) | payer OTHER, SELFPAY ==
--- OUTSIDE RECORDS SUMMARY | 2024-11-20 16:00 | XMS_ITS ---
Author Organization [facility] Address [address] [facility] [place] [address] Care Team Providers Care Principal Biostatistician Name Role Phone NO, PCP Primary Care Provider [phone] Miriam Mann Unavailable [phone] Migration, Provider Unavailable Unavailable Allergies Allergen (clinical drug ingredient) Drug/Non Drug Allergy documented on EMR Reaction Allergy Type Onset Date Status carbamazepine TEGretol Unknown Drug Allergy Act denia [facility] Encounter Medications Medication SIG (Take, Route, Frequency, Duration) Notes Start Date End Date Status Topiramate *Please review a nd pick correct strength-formulatio n from Medispan options. If intended option is not shown, discontinue and re-order from Quick Search* Active Amoxicillin 875 MG 1 tab(s) orally every 12 hours for 7 days 06/17/2022 Active metFORMIN HCl *Please review a nd pick correct strength-formulatio n from Medispan options. If intended option is not shown, discontinue and re-order from Quick Search* Active OLANZapine *Please review a nd pick correct strength-formulatio n from Medispan options. If intended option is not shown, discontinue and re-order from Quick Search* Active Atorvastatin Calcium *Please rev iew and pick correct strength-formulatio n from Medispan options. If intended option is not shown, discontinue and re-order from Quick Search* Active Lisinopril *Please review a nd pick correct strength-formulatio n from Medispan options. If intended option is not shown, discontinue and re-order from Quick Search* Active Jardiance *Please review a nd pick correct strength-formulatio n from Medispan options. If intended option is not shown, discontinue and re-order from Quick Search* Active Encounters Encounter Location Date Provider Diagnosis [facility] [address] [place] [address] 11/20/2024 Provider Migration Plan Of Treatment Medication Medication Name Sig Start Date Stop Date Notes Amoxicillin 875 MG 1 tab(s) orally ever y 12 hours for 7 days 06/17/2022 Progress Notes * Luis Antonio DE LOS SANTOSDOB:[birth year] (54 yo M)Acc No.[id number]:11/20/2024 Patient: Luis Antonio DOBBINS Provider: :1970 A ge:54 Y S ex:Male Date:11/20/2024 Address: [address] [facility], [facility] Pcp:PCP NO Subjective: * Chief Complaints: * 1 . Multum To Medispan Conversion Encounter. * Medical History: * Medications: T aking Lisinopril , Notes to Pharmacist: *Please review and pick correct strength-formulation from Medispan options. If intended option is not shown, discontinue and re-order from Quick Search*, Taking Jardiance , Notes to Pharmacist: *Please review and pick correct strength-formulation from Medispan options. If intended option is not shown, discontinue and re-order from Quick Search*, Taking Atorvastatin Calcium , Notes to Pharmacist: *Please review and pick correct strength-formulation from Medispan options. If intended option is not shown, discontinue and re-order from Quick Search*, Taking metFORMIN HCl , Notes to Pharmacist: *Please review and pick correct strength-formulation from Medispan options. If intended option is not shown, discontinue and re-order from Quick Search*, Taking OLANZapine , Notes to Pharmacist: *Please review and pick correct strength-formulation from Medispan options. If intended option is not shown, discontinue and re-order from Quick Search*, Taking Topiramate , Notes to Pharmacist: *Please review and pick correct strength-formulation from Medispan options. If intended option is not shown, discontinue and re-order from Quick Search* * Allergies: T EGretol. Objective: * Vitals: Assessment: Plan: * Treatment: * Images: Billing Information: * Visit Code: * Procedure Codes: * Electronic signature of Prov ider Migration on 01/27/2025 at 02:17 AM EST Sign off status: Pending * Provider: Date: 0 11/20/2024 Generated for Lisa bangura/Bravo/Griselda on: 1 03/29/2024 02:17 AM EST
[2025-01-26 14:04] VITALS: BP 112/64; PULSE 80; O2SAT 98; BMI 47.4
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
--- OUTSIDE RECORDS SUMMARY | 2025-01-27 02:17 | XMS_ITS | Patient Health Record ---
Author Organization [facility] Address [address] [place] [address] Care Team Providers Care Block Cableman Name Role Phone NO, PCP Primary Care Provider Miriam Mann Unavailable [phone] Migration, Provider Unavailable Unavailable Allergies Allergen (clinical [...] Active Encounters Encounter Location Date Provider Diagnosis [facility] [address] [facility] [place] [address] 11/20/2024 Provider Migration Plan Of Treatment No Information Insurance Providers Payer Name Payer Address Payer Phone Subscriber Number Group Number Insured Name Patient Relationship to Insured Coverage Start Date Coverage End Date [facility] [address] [place] [phone] [id number] Luis Antonio Arita Self - patient is the insured 2 Medical (General) History Medical History History ICD Code Diabetes type II Epilepsy / Seizures Hydrocephalus at L ankle surgery (6 pins placed, broken a nkle)
== END 2025-01-26 14:52 | disposition home or self-care (01) ==
PROVIDERS: PCP Internal Medicine; Visit Provider Physician Assistant Medical
DX: M79.604 Pain in right leg (principal)

== ENCOUNTER → 2025-01-26 14:02 | Outpatient (BNVA) | payer OTHER, SELFPAY | PROVIDERS: PCP Internal Medicine; Visit Provider Physician Assistant Medical | DX: M79.604 Pain in right leg (principal) | CPT/HCPCS: 99212 ==